=== PATIENT | female | born 1960 | race Caucasian/White ===

== ENCOUNTER 2023-06-09 19:43 | Inpatient (IN) | payer OTHER ==
[~2023-06-09] VITALS: Ht 172.7 cm; Wt 101.0 kg
[2023-06-09] MEDS ORDERED: SODIUM CHLORIDE 0.9% 1,000 ML IV ONE (20:15)
[2023-06-09 20:22] LABS: Basophils # (auto) 0.1 10 ^3/uL (0-0.2); Basophils % (auto) 0.5 % (0.0-2.0); Eosinophils # (auto) 0.2 10 ^3/uL (0-0.8); Eosinophils % (auto) 1.4 % (0.0-7.0); Hematocrit 43.6 % (36.0-46.0); Hemoglobin 14.7 g/dL (12.2-16.2); Lymphocytes # (auto) 2.9 10 ^3/uL (0.4-5.4); Lymphocytes % (auto) 24.1 % (10.0-50.0); Mean Corpuscular Hemoglobin 33.6 pg (28.0-32.0); Mean Corpuscular Hgb Conc. 33.6 g/dL (32.0-36.0); Mean Corpuscular Volume 99.8 fL (80.0-100.0); Monocytes # (auto) 0.9 10 ^3/uL (0-1.3); Monocytes % (auto) 7.9 % (0.0-12.0); Neutrophils # (auto) 7.9 10 ^3/uL (1.6-8.6); Neutrophils % (auto) 66.1 % (37.0-80.0); Red Blood Cells 4.37 10^6/uL (4.0-5.20)
[2023-06-09 20:36] LABS: Alanine Aminotransferase 46 U/L (7-40); Albumin 4.4 g/dL (3.2-4.8); Alkaline Phosphatase 145 U/L (46-116); Anion Gap 14 (5-15); Aspartate Aminotransferase 34 U/L (13-40); BUN/Creatinine Ratio 13.5 (10.0-20.0); Bilirubin, Total 1.7 mg/dL (0.2-1.0); Blood Urea Nitrogen 26 mg/dL (9-23); Calcium 9.4 mg/dL (8.7-10.4); Carbon Dioxide 19 mmol/L (20-30); Chloride 105 mmol/L (98-107); Glucose 134 mg/dL (74-106); Potassium 3.8 mmol/L (3.5-5.1); Sodium 138 mmol/L (136-145); Total Protein 7.3 g/dL (5.7-8.2)
[2023-06-09 21:21] LABS: INR 1.03 (0.9-1.15); Partial Thromboplastin Time 30.2 SEC (24.5-34.5); Prothrombin Time 10.8 sec (9.3-11.8)
[2023-06-10] VITALS (7 sets, daily range): BP systolic 75–107; BP diastolic 43–49; PULSE 75–80; RESP 11–18; TEMP 97.9; O2SAT 94–100
[2023-06-10] MEDS ORDERED: HYDROcodone-ACET 5/325MG TAB PO PRN (03:00)
[2023-06-10] MEDS ORDERED: ONDANSETRON HCL 4 MG/2 ML VIAL IV PRN (03:00)
[2023-06-10] MEDS ORDERED: SODIUM CHLORIDE 0.9% 1,000 ML IV ONE (03:00)
[2023-06-10] MEDS ORDERED: NITROGLYCERIN 0.4 MG SL TAB SL PRN (03:00)
[2023-06-10] MEDS ORDERED: DOCUSATE SOD 100 MG CAP PO PRN (03:00)
[2023-06-10] MEDS ORDERED: ACETAMINOPHEN 325 MG TAB PO PRN (03:00)
[2023-06-10 05:43] LABS: Chloride 104 mmol/L (98-107); Potassium 3.3 mmol/L (3.5-5.1); Sodium 138 mmol/L (136-145)
[2023-06-10 05:44] LABS: Anion Gap 15 (5-15); Calcium 9.3 mg/dL (8.7-10.4); Carbon Dioxide 19 mmol/L (20-30)
[2023-06-10 05:49] LABS: BUN/Creatinine Ratio 9.5 (10.0-20.0); Blood Urea Nitrogen 19 mg/dL (9-23); Glucose 107 mg/dL (74-106)
[2023-06-10 06:19] LABS: Basophils # (auto) 0 10 ^3/uL (0-0.2); Basophils % (auto) 0.6 % (0.0-2.0); Eosinophils # (auto) 0.2 10 ^3/uL (0-0.8); Eosinophils % (auto) 2.6 % (0.0-7.0); Hematocrit 43.8 % (36.0-46.0); Hemoglobin 14.7 g/dL (12.2-16.2); Lymphocytes # (auto) 3.2 10 ^3/uL (0.4-5.4); Lymphocytes % (auto) 36.6 % (10.0-50.0); Mean Corpuscular Hemoglobin 33.8 pg (28.0-32.0); Mean Corpuscular Hgb Conc. 33.6 g/dL (32.0-36.0); Mean Corpuscular Volume 100.5 fL (80.0-100.0); Monocytes # (auto) 0.7 10 ^3/uL (0-1.3); Monocytes % (auto) 7.9 % (0.0-12.0); Neutrophils # (auto) 4.5 10 ^3/uL (1.6-8.6); Neutrophils % (auto) 52.3 % (37.0-80.0); Nucleated Red Blood Cells % 0.2 %; Red Blood Cells 4.35 10^6/uL (4.0-5.20); Red Cell Distribution Width 14.4 % (11.8-14.3); White Blood Cell 8.6 10^3/uL (4.4-10.8)
[2023-06-10] MEDS ORDERED: levETIRAcetam 500 MG TAB PO SCH (13:15)
[2023-06-10] MEDS ORDERED: HYDR25TA87 PO (13:30)
[2023-06-10] MEDS ORDERED: LEVE100020 PO (13:30)
[2023-06-10] MEDS ORDERED: LISI20TA56 PO ×2 (13:30)
[2023-06-10] MEDS ORDERED: ZONI100C43 PO (13:30)
[2023-06-10] MEDS ORDERED: TOPI50TA53 PO (13:30)
[2023-06-10] MEDS ORDERED: ATOR40TA52 PO (13:30)
[2023-06-10] MEDS ORDERED: FUR20T PO (13:30)
[2023-06-10] MEDS ORDERED: ASPI1TAB20 PO (13:31)
[2023-06-10] MEDS ORDERED: ALBU108A14 IN (13:33)
[2023-06-10] MEDS: levETIRAcetam 500 MG TAB PO SCH ×2 (14:08→21:05)
[2023-06-10] MEDS: TOPIRAMATE 25 MG TAB PO SCH ×2 (14:08→21:06)
[2023-06-10] MEDS: MORPHINE SULFATE INJ 2 MG/ml SYRG IV PRN (14:53)
[2023-06-10] MEDS: PANTOPRAZOLE 40 MG/10 ML VIAL INJ IV SCH (16:58)
[2023-06-11] VITALS (9 sets, daily range): BP systolic 90–124; BP diastolic 37–71; PULSE 61–79; RESP 16–19; TEMP 97.9–98.3; O2SAT 94–98
[2023-06-11 07:00] LABS: Basophils % (auto) 0.6 % (0.0-2.0); Eosinophils # (auto) 0.2 10 ^3/uL (0-0.8); Eosinophils % (auto) 2.6 % (0.0-7.0); Lymphocytes # (auto) 2.4 10 ^3/uL (0.4-5.4); Lymphocytes % (auto) 34.3 % (10.0-50.0); Monocytes # (auto) 0.5 10 ^3/uL (0-1.3); Monocytes % (auto) 7.1 % (0.0-12.0); Neutrophils # (auto) 3.8 10 ^3/uL (1.6-8.6); Neutrophils % (auto) 55.4 % (37.0-80.0); Nucleated Red Blood Cells % 0.1 %; White Blood Cell 6.9 10^3/uL (4.4-10.8)
[2023-06-11 07:01] LABS: Basophils # (auto) 0 10 ^3/uL (0-0.2); Hematocrit 36.4 % (36.0-46.0); Hemoglobin 12.4 g/dL (12.2-16.2); Mean Corpuscular Volume 100.2 fL (80.0-100.0); Red Blood Cells 3.63 10^6/uL (4.0-5.20); Red Cell Distribution Width 14.3 % (11.8-14.3)
[2023-06-11 07:02] LABS: Chloride 109 mmol/L (98-107); Potassium 3.5 mmol/L (3.5-5.1); Sodium 141 mmol/L (136-145)
[2023-06-11 07:03] LABS: Anion Gap 9 (5-15); Carbon Dioxide 23 mmol/L (20-30)
[2023-06-11 07:08] LABS: BUN/Creatinine Ratio 17.3 (10.0-20.0); Blood Urea Nitrogen 22 mg/dL (9-23); Glucose 104 mg/dL (74-106)
[2023-06-11] MEDS: TOPIRAMATE 25 MG TAB PO SCH ×2 (10:08→21:45)
[2023-06-11] MEDS: PANTOPRAZOLE 40 MG/10 ML VIAL INJ IV SCH (10:08)
[2023-06-11] MEDS: levETIRAcetam 500 MG TAB PO SCH ×3 (10:08→21:45)
[2023-06-11] MEDS: MORPHINE SULFATE INJ 2 MG/ml SYRG IV PRN (16:52)
[2023-06-11] MEDS ORDERED: LORazepam 2MG/ML-1ML VIAL IV PRN ×2 (17:45)
[2023-06-11 20:42] LABS: Urine Bacteria NONE SEEN /hpf (None Seen); Urine Blood Negative /uL (Negative); Urine Clarity HAZY (Clear); Urine Color Yellow (Yellow); Urine Mucus FEW (None Seen); Urine Protein, UAD Negative (Negative); Urine Specific Gravity 1.019 (1.001-1.035); Urine Urobilinogen Normal (Negative); Urine WBC 2 /hpf (0 - 5)
[2023-06-12] VITALS (10 sets, daily range): BP systolic 98–111; BP diastolic 57–72; PULSE 57–79; RESP 15–18; TEMP 97.6–98.4; O2SAT 94–97
[2023-06-12 05:40] LABS: Basophils # (auto) 0.1 10 ^3/uL (0-0.2); Basophils % (auto) 0.9 % (0.0-2.0); Eosinophils # (auto) 0.2 10 ^3/uL (0-0.8); Eosinophils % (auto) 3.2 % (0.0-7.0); Hematocrit 36.9 % (36.0-46.0); Hemoglobin 12.6 g/dL (12.2-16.2); Lymphocytes # (auto) 2.3 10 ^3/uL (0.4-5.4); Lymphocytes % (auto) 34.6 % (10.0-50.0); Mean Corpuscular Hemoglobin 34.1 pg (28.0-32.0); Mean Corpuscular Hgb Conc. 34.1 g/dL (32.0-36.0); Mean Corpuscular Volume 100.1 fL (80.0-100.0); Monocytes # (auto) 0.5 10 ^3/uL (0-1.3); Monocytes % (auto) 7.2 % (0.0-12.0); Neutrophils # (auto) 3.6 10 ^3/uL (1.6-8.6); Neutrophils % (auto) 54.1 % (37.0-80.0); Nucleated Red Blood Cells % 0.1 %; Red Blood Cells 3.69 10^6/uL (4.0-5.20); Red Cell Distribution Width 14.3 % (11.8-14.3); White Blood Cell 6.7 10^3/uL (4.4-10.8)
[2023-06-12 05:47] LABS: Chloride 109 mmol/L (98-107); Potassium 3.5 mmol/L (3.5-5.1); Sodium 141 mmol/L (136-145)
[2023-06-12 05:48] LABS: Anion Gap 8 (5-15); Carbon Dioxide 24 mmol/L (20-30)
[2023-06-12 05:53] LABS: BUN/Creatinine Ratio 18.3 (10.0-20.0); Blood Urea Nitrogen 17 mg/dL (9-23); Glucose 98 mg/dL (74-106)
[2023-06-12] MEDS: PANTOPRAZOLE 40 MG/10 ML VIAL INJ IV SCH (09:35)
[2023-06-12] MEDS: TOPIRAMATE 25 MG TAB PO SCH (09:36)
[2023-06-12] MEDS: levETIRAcetam 500 MG TAB PO SCH (09:36)
== END 2023-06-12 17:45 | disposition home or self-care (01) | DRG 315 ==
LOC: ER 19:43 → TELE 06-10 02:51 → TELE-EAST 06-10 02:58 → TELE 06-10 02:58 → ER 06-10 02:58 → TELE-E-ADS 06-10 12:18 → TELE-EAST 06-10 17:49
PROVIDERS: ADMIT Nurse Practitioner Family; ATTEND Nurse Practitioner Family
DX: I95.9 Hypotension, unspecified (principal); N17.9 Acute kidney failure, unspecified; D72.829 Elevated white blood cell count, unspecified; E87.6 Hypokalemia; E11.9 Type 2 diabetes mellitus without complications; E78.5 Hyperlipidemia, unspecified; E66.01 Morbid (severe) obesity due to excess calories; G40.409 Other generalized epilepsy and epileptic syndromes, not intractable, without status epilepticus; G43.909 Migraine, unspecified, not intractable, without status migrainosus; G47.00 Insomnia, unspecified; I11.0 Hypertensive heart disease with heart failure; I50.9 Heart failure, unspecified; J45.909 Unspecified asthma, uncomplicated; Z79.899 Other long term (current) drug therapy; Z80.0 Family history of malignant neoplasm of digestive organs; Z82.3 Family history of stroke; Z82.49 Family history of ischemic heart disease and other diseases of the circulatory system; Z83.3 Family history of diabetes mellitus; Z86.73 Personal history of transient ischemic attack (TIA), and cerebral infarction without residual deficits; Z90.710 Acquired absence of both cervix and uterus; Z68.33 Body mass index [BMI] 33.0-33.9, adult
CPT/HCPCS: 36415; 70450; 70551; 71045; 80048; 80053; 81001; 83880; 84484; 85025; 85610; 85730; 93005; 93306; 94660; 95819; 97163; C9113; G0378; J2405

== ENCOUNTER 2023-11-24 14:55 | Inpatient (IN) | payer OTHER ==
[~2023-11-24] VITALS: Ht 172.7 cm; Wt 97.7 kg
[~2023-11-24 14:55] MED LIST: ALBU108A14 IN; ASPI1TAB20 PO; ATOR40TA52 PO; FUR20T PO; HYDR25TA87 PO; LEVE100020 PO; LISI20TA56 PO; TOPI50TA53 PO; ZONI100C43 PO
[2023-11-24 16:58] LABS: Basophils # (auto) 0.1 10 ^3/uL (0-0.2); Basophils % (auto) 0.5 % (0.0-2.0); Eosinophils # (auto) 0.2 10 ^3/uL (0-0.8); Hematocrit 44.5 % (36.0-46.0); Hemoglobin 15.1 g/dL (12.2-16.2); Lymphocytes # (auto) 3.3 10 ^3/uL (0.4-5.4); Lymphocytes % (auto) 29.9 % (10.0-50.0); Mean Corpuscular Hemoglobin 34.5 pg (28.0-32.0); Mean Corpuscular Volume 101.5 fL (80.0-100.0); Monocytes # (auto) 0.6 10 ^3/uL (0-1.3); Monocytes % (auto) 5.7 % (0.0-12.0); Neutrophils # (auto) 6.9 10 ^3/uL (1.6-8.6); Neutrophils % (auto) 61.9 % (37.0-80.0); Nucleated Red Blood Cells % 0.1 %; Red Blood Cells 4.39 10^6/uL (4.0-5.20); Red Cell Distribution Width 14.2 % (11.8-14.3); White Blood Cell 11.2 10^3/uL (4.4-10.8)
[2023-11-24 17:14] LABS: Alanine Aminotransferase 35 U/L (7-40); Albumin 4.4 g/dL (3.2-4.8); Alkaline Phosphatase 158 U/L (46-116); Anion Gap 8 (5-15); Aspartate Aminotransferase 32 U/L (13-40); BUN/Creatinine Ratio 12.1 (10.0-20.0); Blood Urea Nitrogen 11 mg/dL (9-23); Calcium 10.2 mg/dL (8.7-10.4); Carbon Dioxide 21 mmol/L (20-30); Chloride 110 mmol/L (98-107); Glucose 114 mg/dL (74-106); Lipase 27 U/L (12-53); Magnesium 1.9 mg/dL (1.6-2.6); Potassium 3.7 mmol/L (3.5-5.1); Sodium 139 mmol/L (136-145)
[2023-11-24 17:15] LABS: Bilirubin, Total 1.7 mg/dL (0.2-1.0); Total Protein 7.7 g/dL (5.7-8.2)
[2023-11-24] MEDS: ONDANSETRON HCL 4 MG/2 ML VIAL IV ONE ×2 (17:58→21:03)
[2023-11-24] MEDS: SODIUM CHLORIDE 0.9% 1,000 ML IV ONE (17:58)
[2023-11-24] MEDS: IOHEXOL 300 MG/ML 100ML BOTTLE IJ ONE (18:28)
[2023-11-24] MEDS: HYDROcodone-ACET 5/325MG TAB PO ONE (20:59)
[2023-11-24] MEDS: fentaNYL CITRATE 100 MCG/2 ML VL IV ONE (21:05)
[2023-11-24] MEDS ORDERED: ACETAMINOPHEN 325 MG TAB PO PRN (21:30)
[2023-11-24] MEDS ORDERED: MORPHINE SULFATE INJ 2 MG/ml SYRG IV PRN (21:30)
[2023-11-24] MEDS ORDERED: ONDANSETRON HCL 4 MG/2 ML VIAL IV PRN (21:30)
[2023-11-24] MEDS ORDERED: MELATONIN 5 MG TAB PO PRN (21:30)
[2023-11-24] MEDS: SODIUM CHLORIDE 0.9% 1,000 ML IV SCH (21:34)
[2023-11-24] MEDS: PANTOPRAZOLE 40 MG/10 ML VIAL INJ IV SCH (21:40)
[2023-11-24 22:26] VITALS: BP 109/49; PULSE 68; RESP 18; TEMP 97.8; O2SAT 98
[2023-11-24 22:28] VITALS: PULSE 88; RESP 17; O2SAT 97
[2023-11-25] VITALS (7 sets, daily range): BP systolic 108–138; BP diastolic 56–94; PULSE 62–75; RESP 18–20; TEMP 97.6–98.4; O2SAT 94–98
[2023-11-25 07:13] LABS: Anion Gap 7 (5-15); Carbon Dioxide 23 mmol/L (20-30); Chloride 110 mmol/L (98-107); Potassium 3.5 mmol/L (3.5-5.1); Sodium 140 mmol/L (136-145)
[2023-11-25 07:14] LABS: Calcium 9.1 mg/dL (8.5-10.1)
[2023-11-25 07:19] LABS: BUN/Creatinine Ratio 13.8 (10.0-20.0); Blood Urea Nitrogen 11 mg/dL (9-23); Glucose 79 mg/dL (74-106)
[2023-11-25 07:30] LABS: Basophils # (auto) 0.1 10 ^3/uL (0-0.2); Basophils % (auto) 1.2 % (0.0-2.0); Eosinophils # (auto) 0.3 10 ^3/uL (0-0.8); Eosinophils % (auto) 2.8 % (0.0-7.0); Hematocrit 39.3 % (36.0-46.0); Lymphocytes # (auto) 3.4 10 ^3/uL (0.4-5.4); Lymphocytes % (auto) 35.3 % (10.0-50.0); Mean Corpuscular Hgb Conc. 33.1 g/dL (32.0-36.0); Mean Corpuscular Volume 102.9 fL (80.0-100.0); Monocytes # (auto) 0.7 10 ^3/uL (0-1.3); Monocytes % (auto) 7.4 % (0.0-12.0); Neutrophils # (auto) 5.1 10 ^3/uL (1.6-8.6); Neutrophils % (auto) 53.3 % (37.0-80.0); Nucleated Red Blood Cells % 0.2 %; Red Blood Cells 3.82 10^6/uL (4.0-5.20); Red Cell Distribution Width 13.8 % (11.8-14.3); White Blood Cell 9.5 10^3/uL (4.4-10.8)
[2023-11-25 08:22] LABS: Platelet Estimate Adequate
[2023-11-25] MEDS: ENOXAPARIN SOD 40 MG/0.4 ML SYRINGE SC SCH (09:33)
[2023-11-25] MEDS: HYDROcodone-ACET 5/325MG TAB PO PRN (14:49)
[2023-11-25 15:43] LABS: Urine Bacteria None Seen /hpf (None Seen)
[2023-11-25 16:08] LABS: Urine Blood 3+ /uL (Negative); Urine Clarity Turbid (Clear); Urine Color Light-Orange (Yellow); Urine Mucus FEW (None Seen); Urine Protein, UAD TRACE (Negative); Urine Specific Gravity 1.029 (1.001-1.035); Urine Urobilinogen Normal (Negative); Urine WBC 3 /hpf (0 - 5)
[2023-11-26] VITALS (8 sets, daily range): BP systolic 127–167; BP diastolic 51–73; PULSE 59–72; RESP 18–19; TEMP 97.4–98.1; O2SAT 94–96
[2023-11-26] MEDS ORDERED: CLOP75TA28 PO (10:54)
[2023-11-26] MEDS ORDERED: CARV-214 OR (10:55)
[2023-11-26] MEDS: FUROSEMIDE 20 MG TAB PO SCH (18:37)
[2023-11-26] MEDS: TOPIRAMATE 25 MG TAB PO SCH (23:03)
[2023-11-26] MEDS: levETIRAcetam 500 MG TAB PO SCH (23:04)
[2023-11-26] MEDS: CARVEDILOL 3.125 MG TAB PO SCH (23:05)
[2023-11-26] MEDS: hydrALAZINE HCL 25 MG TAB PO PRN (23:11)
[2023-11-27] VITALS (8 sets, daily range): BP systolic 134–172; BP diastolic 62–85; PULSE 50–82; RESP 17–20; TEMP 97.6–98.6; O2SAT 93–96
[2023-11-27] MEDS: CLOPIDOGREL BISULFATE 75 MG TAB PO SCH (09:13)
[2023-11-27] MEDS: LISINOPRIL 20 MG TAB PO SCH (09:14)
[2023-11-27] MEDS: ATORVASTATIN 20 MG TAB PO SCH (22:31)
[2023-11-27] MEDS: CIPROFLOXACIN HCL 500 MG TAB PO SCH (22:32)
[2023-11-28 01:00] VITALS: BP 139/81; PULSE 57; RESP 16; TEMP 98; O2SAT 93
[2023-11-28 05:00] VITALS: BP 119/65; PULSE 56; RESP 17; TEMP 98; O2SAT 95
[2023-11-28 08:00] VITALS: RESP 18; O2SAT 95
[2023-11-28 08:15] VITALS: BP 139/68; PULSE 63; RESP 19; TEMP 97.5; O2SAT 96
[2023-11-28 12:10] VITALS: BP 122/65; PULSE 61; RESP 18; TEMP 98.2; O2SAT 96
[2023-11-28] MEDS ORDERED: LEVO500T91 PO (13:38)
[2023-11-28] MEDS ORDERED: AZIT500T66 PO ×2 (14:00→14:02)
[2023-11-28 16:07] VITALS: BP 124/65; PULSE 61; RESP 18; TEMP 36.8; O2SAT 96
== END 2023-11-28 16:30 | disposition home or self-care (01) | DRG 372 ==
LOC: ER 14:55 → OVERFLOW 21:19 → EAST 22:32 → OBSVTOIN 11-26 08:36
PROVIDERS: ADMIT Nurse Practitioner Family; ATTEND Internal Medicine
DX: A04.5 Campylobacter enteritis (principal); I13.0 Hypertensive heart and chronic kidney disease with heart failure and stage 1 through stage 4 chronic kidney disease, or unspecified chronic kidney disease; G40.909 Epilepsy, unspecified, not intractable, without status epilepticus; I50.9 Heart failure, unspecified; N18.9 Chronic kidney disease, unspecified; D72.829 Elevated white blood cell count, unspecified; E78.5 Hyperlipidemia, unspecified; Z90.710 Acquired absence of both cervix and uterus; Z86.73 Personal history of transient ischemic attack (TIA), and cerebral infarction without residual deficits; Z82.49 Family history of ischemic heart disease and other diseases of the circulatory system; Z80.0 Family history of malignant neoplasm of digestive organs; Z85.038 Personal history of other malignant neoplasm of large intestine; Z79.899 Other long term (current) drug therapy
CPT/HCPCS: 36415; 74176; 74177; 76830; 76856; 80048; 80053; 81001; 83605; 83690; 83735; 84484; 85025; 85048; 87045; 87177; 87427; 87493; 96374; 96375; G0378; J2405; J2470

== ENCOUNTER 2024-01-16 09:23 | Inpatient (IN) | payer OTHER ==
[~2024-01-16] VITALS: Ht 172.7 cm; Wt 103.9 kg
[~2024-01-16 09:23] MED LIST changes: +AZIT500T66 PO; +CARV-214 PO; +CLOP75TA28 PO; -FUR20T PO; +FURO20TA4 PO; +LOSA-534 PO; +POTA-228 PO
[2024-01-16 10:03] LABS: Red Cell Distribution Width 14.4 % (11.8-14.3)
[2024-01-16 10:05] LABS: Basophils # (auto) 0.1 10 ^3/uL (0-0.2); Basophils % (auto) 0.7 % (0.0-2.0); Eosinophils # (auto) 0.2 10 ^3/uL (0-0.8); Hematocrit 28.2 % (36.0-46.0); Hemoglobin 9.7 g/dL (12.2-16.2); Lymphocytes # (auto) 2.6 10 ^3/uL (0.4-5.4); Lymphocytes % (auto) 30.4 % (10.0-50.0); Mean Corpuscular Hemoglobin 34.9 pg (28.0-32.0); Mean Corpuscular Hgb Conc. 34.2 g/dL (32.0-36.0); Mean Corpuscular Volume 101.9 fL (80.0-100.0); Monocytes # (auto) 0.5 10 ^3/uL (0-1.3); Monocytes % (auto) 5.4 % (0.0-12.0); Neutrophils # (auto) 5.2 10 ^3/uL (1.6-8.6); Neutrophils % (auto) 61.5 % (37.0-80.0); Platelet Count (auto) 220 10^3/uL (140-450); Red Blood Cells 2.77 10^6/uL (4.0-5.20); White Blood Cell 8.5 10^3/uL (4.4-10.8)
[2024-01-16 10:18] LABS: INR 1.03 (0.9-1.15); Prothrombin Time 10.9 sec (9.3-11.8)
[2024-01-16 10:20] VITALS: PULSE 88; RESP 15; O2SAT 96
[2024-01-16 10:26] LABS: Alanine Aminotransferase 40 U/L (7-40); Albumin 3.6 g/dL (3.2-4.8); Alkaline Phosphatase 156 U/L (46-116); Anion Gap 11 (5-15); Aspartate Aminotransferase 31 U/L (13-40); BUN/Creatinine Ratio 13.6 (10.0-20.0); Bilirubin, Total 1.1 mg/dL (0.2-1.0); Blood Urea Nitrogen 12 mg/dL (9-23); Carbon Dioxide 20 mmol/L (20-30); Chloride 108 mmol/L (98-107); Glucose 175 mg/dL (74-106); Potassium 3.6 mmol/L (3.5-5.1); Sodium 139 mmol/L (136-145); Total Protein 6.2 g/dL (5.7-8.2)
[2024-01-16] MEDS: SODIUM CHLORIDE 0.9% 1,000 ML IV ONE ×2 (11:21→12:46)
[2024-01-16] MEDS: HYDROcodone-ACET 10/325MG TAB PO ONE (13:07)
[2024-01-16] MEDS ORDERED: MORPHINE SULFATE INJ 2 MG/ml SYRG IV PRN (13:15)
[2024-01-16] MEDS ORDERED: NITROGLYCERIN 0.4 MG SL TAB SL PRN (13:15)
[2024-01-16] MEDS: SODIUM CHLORIDE 0.9% 1,000 ML IV SCH (13:30)
[2024-01-16] MEDS: PANTOPRAZOLE 40 MG/10 ML VIAL INJ IV ONE (13:39)
[2024-01-16 15:03] LABS: Hematocrit 26.3 % (36.0-46.0)
[2024-01-16] MEDS: ONDANSETRON HCL 4 MG/2 ML VIAL IV PRN (17:48)
[2024-01-16] MEDS: MORPHINE SULFATE INJ 2 MG/ml SYRG IV PRN (17:50)
[2024-01-16 18:00] LABS: Hemoglobin 9.2 g/dL (12.2-16.2)
[2024-01-16 18:02] LABS: Hematocrit 26.9 % (36.0-46.0)
[2024-01-16] MEDS: PANTOPRAZOLE 40 MG/10 ML VIAL INJ IV SCH (22:06)
[2024-01-16] MEDS: TOPIRAMATE 100 MG TAB PO SCH (22:06)
[2024-01-16] MEDS: levETIRAcetam 1000 mg/100ml 100 ML IV SCH (22:07)
[2024-01-16 23:00] VITALS: BP 152/73; PULSE 82; RESP 20; TEMP 98.5; O2SAT 98
[2024-01-16 23:01] VITALS: BP 152/73; PULSE 82; TEMP 98.5; O2SAT 98
[2024-01-16 23:41] LABS: Hematocrit 24.4 % (36.0-46.0); Hemoglobin 8.3 g/dL (12.2-16.2)
[2024-01-17] VITALS (11 sets, daily range): BP systolic 103–143; BP diastolic 53–68; PULSE 71–82; RESP 16–20; TEMP 97.6–98.6; O2SAT 95–98
[2024-01-17 10:14] LABS: Hematocrit 22.6 % (36.0-46.0); Hemoglobin 7.4 g/dL (12.2-16.2)
[2024-01-17] MEDS: FUROSEMIDE 20 MG/2 ML VIAL IV ONE (16:18)
[2024-01-17 19:04] LABS: Hematocrit 26.2 % (36.0-46.0)
[2024-01-18] VITALS (11 sets, daily range): BP systolic 109–138; BP diastolic 45–62; PULSE 64–78; RESP 16–18; TEMP 97.8–98.7; O2SAT 94–99
[2024-01-18 06:47] LABS: Basophils # (auto) 0 10 ^3/uL (0-0.2); Basophils % (auto) 0.5 % (0.0-2.0); Eosinophils # (auto) 0.1 10 ^3/uL (0-0.8); Lymphocytes # (auto) 2.5 10 ^3/uL (0.4-5.4); Monocytes # (auto) 0.4 10 ^3/uL (0-1.3); Red Cell Distribution Width 17.5 % (11.8-14.3)
[2024-01-18 06:54] LABS: Eosinophils % (auto) 1.8 % (0.0-7.0); Hematocrit 23.4 % (36.0-46.0); Hemoglobin 8.1 g/dL (12.2-16.2); Lymphocytes % (auto) 41.4 % (10.0-50.0); Mean Corpuscular Hemoglobin 34.1 pg (28.0-32.0); Mean Corpuscular Hgb Conc. 34.4 g/dL (32.0-36.0); Mean Corpuscular Volume 99.1 fL (80.0-100.0); Neutrophils % (auto) 50.3 % (37.0-80.0); Nucleated Red Blood Cells % 0.3 %; Platelet Count (auto) 142 10^3/uL (140-450); Red Blood Cells 2.37 10^6/uL (4.0-5.20)
[2024-01-18 07:00] LABS: Alanine Aminotransferase 31 U/L (7-40); Albumin 3.4 g/dL (3.2-4.8); Alkaline Phosphatase 117 U/L (46-116); Anion Gap 6 (5-15); Aspartate Aminotransferase 26 U/L (13-40); BUN/Creatinine Ratio 7.4 (10.0-20.0); Blood Urea Nitrogen 7 mg/dL (9-23); Calcium 8.5 mg/dL (8.7-10.4); Carbon Dioxide 25 mmol/L (20-30); Chloride 111 mmol/L (98-107); Glucose 94 mg/dL (74-106); INR 1.04 (0.9-1.15); Partial Thromboplastin Time 23.7 SEC (24.5-34.5); Potassium 3.2 mmol/L (3.5-5.1); Sodium 142 mmol/L (136-145); Total Protein 5.5 g/dL (5.7-8.2)
[2024-01-18] MEDS: POTASSIUM CHL 20 Meq TABLET PO ONE (14:17)
[2024-01-18] MEDS: GOLYTELY 4L KIT PO ONE (19:15)
[2024-01-19] VITALS (8 sets, daily range): BP systolic 107–143; BP diastolic 47–78; PULSE 66–101; RESP 17–24; TEMP 97.5–98.6; O2SAT 93–99
[2024-01-19 00:57] LABS: Hematocrit 24.3 % (36.0-46.0); Hemoglobin 8.4 g/dL (12.2-16.2)
[2024-01-19] MEDS: GOLYTELY 4L KIT PO ONE (05:45)
[2024-01-19] MEDS: MAGNESIUM CITRATE SOLUTION 300 ML BTL PO ONE ×2 (05:46→09:11)
[2024-01-19] MEDS ORDERED: LIDOCAINE VISCOUS 2% 15ML UD ONE (08:30)
[2024-01-19] MEDS ORDERED: SODIUM CHLORIDE LOCK 0 ML ONE (08:30)
[2024-01-19] MEDS ORDERED: MIDAZOLAM HCL 5 MG/ML-1ML VIAL ONE (08:30)
[2024-01-19] MEDS ORDERED: fentaNYL CITRATE 100 MCG/2 ML VL ONE ×2 (08:31→12:57)
[2024-01-19] MEDS ORDERED: diphenhdrAMINE HCL 50 MG/1 ML VL ONE (08:31)
[2024-01-19] MEDS ORDERED: MIDAZOLAM HCL 2MG/2ML 2ml VIAL (1mg/ml) ONE (12:57)
[2024-01-19] MEDS ORDERED: PROPOFOL 10 MG/ML 20 ML IV ONE (12:58)
[2024-01-19] MEDS ORDERED: LIDOCAINE 1% INJ PF 5ML AMP ONE (12:59)
[2024-01-19] MEDS: ONDANSETRON HCL 4 MG/2 ML VIAL IV ONE (13:00)
[2024-01-19 16:14] LABS: Chloride 114 mmol/L (98-107); Potassium 3.6 mmol/L (3.5-5.1); Sodium 143 mmol/L (136-145)
[2024-01-19 16:15] LABS: Anion Gap 5 (5-15); Calcium 8.7 mg/dL (8.7-10.4); Carbon Dioxide 24 mmol/L (20-30)
[2024-01-19 16:20] LABS: BUN/Creatinine Ratio 5.8 (10.0-20.0); Blood Urea Nitrogen < 5 mg/dL (9-23); Glucose 82 mg/dL (74-106)
[2024-01-19] MEDS: levETIRAcetam 500 MG TAB PO SCH (23:56)
[2024-01-20] VITALS (7 sets, daily range): BP systolic 106–117; BP diastolic 57–62; PULSE 63–80; RESP 18–20; TEMP 98–98.7; O2SAT 94–100
[2024-01-20 04:46] LABS: White Blood Cell 5.5 10^3/uL (4.4-10.8)
[2024-01-20 04:48] LABS: Basophils # (auto) 0 10 ^3/uL (0-0.2); Basophils % (auto) 0.4 % (0.0-2.0); Eosinophils # (auto) 0.1 10 ^3/uL (0-0.8); Eosinophils % (auto) 2.3 % (0.0-7.0); Hematocrit 23.1 % (36.0-46.0); Hemoglobin 7.9 g/dL (12.2-16.2); Lymphocytes % (auto) 36.3 % (10.0-50.0); Mean Corpuscular Hemoglobin 34.2 pg (28.0-32.0); Mean Corpuscular Hgb Conc. 34.1 g/dL (32.0-36.0); Mean Corpuscular Volume 100.3 fL (80.0-100.0); Monocytes # (auto) 0.4 10 ^3/uL (0-1.3); Monocytes % (auto) 7.6 % (0.0-12.0); Neutrophils % (auto) 53.4 % (37.0-80.0); Platelet Count (auto) 186 10^3/uL (140-450); Red Cell Distribution Width 17.2 % (11.8-14.3)
[2024-01-20 04:55] LABS: Anion Gap 8 (5-15); Carbon Dioxide 22 mmol/L (20-30); Chloride 114 mmol/L (98-107); Potassium 3.2 mmol/L (3.5-5.1); Sodium 144 mmol/L (136-145)
[2024-01-20 04:56] LABS: Calcium 8.2 mg/dL (8.7-10.4)
[2024-01-20 05:00] LABS: INR 1.04 (0.9-1.15); Partial Thromboplastin Time 24.3 SEC (24.5-34.5)
[2024-01-20 05:01] LABS: BUN/Creatinine Ratio 5.6 (10.0-20.0); Blood Urea Nitrogen 5 mg/dL (9-23); Glucose 90 mg/dL (74-106)
[2024-01-20] MEDS: POTASSIUM CHL 20 Meq TABLET PO ONE (09:41)
[2024-01-20] MEDS ORDERED: ASCO500C16 PO (09:59)
[2024-01-20] MEDS ORDERED: FER300LQ PO (09:59)
== END 2024-01-20 14:16 | disposition home or self-care (01) | DRG 378 ==
LOC: ER 09:23 → TELE 13:19 → TELE-CENTR 23:00
PROVIDERS: ADMIT Hospitalist; ATTEND Hospitalist
PROC: 30233N1 Transfusion of Nonautologous Red Blood Cells into Peripheral Vein, Percutaneous Approach (ICD-10-PCS; 2024-01-17)
PROC: 05H933Z Insertion of Infusion Device into Right Brachial Vein, Percutaneous Approach (ICD-10-PCS; 2024-01-17)
PROC: B54MZZA Ultrasonography of Right Upper Extremity Veins, Guidance (ICD-10-PCS; 2024-01-17)
PROC: 30233K1 Transfusion of Nonautologous Frozen Plasma into Peripheral Vein, Percutaneous Approach (ICD-10-PCS; 2024-01-18)
PROC: 0DB68ZX Excision of Stomach, Via Natural or Artificial Opening Endoscopic, Diagnostic (ICD-10-PCS; 2024-01-19)
PROC: 0DBP8ZZ Excision of Rectum, Via Natural or Artificial Opening Endoscopic (ICD-10-PCS; principal; 2024-01-19 12:51)
PROC: 0DB98ZX Excision of Duodenum, Via Natural or Artificial Opening Endoscopic, Diagnostic (ICD-10-PCS; 2024-01-19 12:51)
DX: K57.31 Diverticulosis of large intestine without perforation or abscess with bleeding (principal); D62 Acute posthemorrhagic anemia; K70.30 Alcoholic cirrhosis of liver without ascites; I10 Essential (primary) hypertension; G40.909 Epilepsy, unspecified, not intractable, without status epilepticus; R73.9 Hyperglycemia, unspecified; K64.8 Other hemorrhoids; K62.1 Rectal polyp; Z82.49 Family history of ischemic heart disease and other diseases of the circulatory system; Z86.73 Personal history of transient ischemic attack (TIA), and cerebral infarction without residual deficits; Z90.710 Acquired absence of both cervix and uterus; Z79.02 Long term (current) use of antithrombotics/antiplatelets; Z80.0 Family history of malignant neoplasm of digestive organs; Z79.899 Other long term (current) drug therapy
CPT/HCPCS: 36415; 70450; 71045; 74176; 80048; 80053; 83735; 84484; 85014; 85018; 85025; 85610; 85730; 86850; 86900; 86901; 86920; 93005; 93306; 96374; 99291; G0378; J2250; J2405; J2470; J2704

== ENCOUNTER 2024-05-21 17:23 | Emergency (ER) | payer OTHER ==
[~2024-05-21] VITALS: Ht 172.7 cm; Wt 105.8 kg
[~2024-05-21 17:23] MED LIST changes: +ASCO500C16 PO; -AZIT500T66 PO; +FER300LQ PO; -LISI20TA56 PO
[2024-05-21 17:57] LABS: Basophils # (auto) 0.1 10 ^3/uL (0-0.2); Basophils % (auto) 0.7 % (0.0-2.0); Eosinophils # (auto) 0.3 10 ^3/uL (0-0.8); Eosinophils % (auto) 3.1 % (0.0-7.0); Hematocrit 42.2 % (36.0-46.0); Hemoglobin 14.1 g/dL (12.2-16.2); Lymphocytes # (auto) 2.5 10 ^3/uL (0.4-5.4); Lymphocytes % (auto) 29.8 % (10.0-50.0); Mean Corpuscular Hemoglobin 33.3 pg (28.0-32.0); Mean Corpuscular Hgb Conc. 33.4 g/dL (32.0-36.0); Mean Corpuscular Volume 99.6 fL (80.0-100.0); Monocytes # (auto) 0.7 10 ^3/uL (0-1.3); Neutrophils # (auto) 4.8 10 ^3/uL (1.6-8.6); Neutrophils % (auto) 58.4 % (37.0-80.0); Platelet Count (auto) 185 10^3/uL (140-450); Red Blood Cells 4.23 10^6/uL (4.0-5.20); Red Cell Distribution Width 14.6 % (11.8-14.3); White Blood Cell 8.2 10^3/uL (4.4-10.8)
[2024-05-21 18:05] LABS: Chloride 107 mmol/L (98-107); Potassium 4.2 mmol/L (3.5-5.1); Sodium 141 mmol/L (136-145)
[2024-05-21 18:06] LABS: Anion Gap 7 (5-15); Calcium 10.1 mg/dL (8.7-10.4); Carbon Dioxide 27 mmol/L (20-31)
[2024-05-21 18:11] LABS: BUN/Creatinine Ratio 23.1 (10.0-20.0); Blood Urea Nitrogen 21 mg/dL (9-23); Glucose 102 mg/dL (74-106); Lipase 30 U/L (12-53)
--- NOTE | 2024-05-21 18:12 | DVH ---
CLINICAL INFORMATION: 64 years old, Female; chest pain. TECHNIQUE: Frontal and lateral chest radiographs were obtained. COMPARISON: Prior radiograph dated 01/16/2024. FINDINGS: Lungs: Mild atelectasis in the lung bases. No focal consolidation. Cardiac: Heart size is within normal limits. Pulmonary vasculature: Unremarkable Mediastinum/kavita: Within normal limits. Bones: No evidence of acute osseous abnormality. Multilevel moderate disc space narrowing in the thor acic spine with associated endplate sclerosis and endplate spurring. Other: No other significant finding. IMPRESSION: No evidence of acute disease in the chest.
--- NOTE | 2024-05-21 19:14 | ED.PDOC ---
HPI Comments 64Y F with PMHx CHF, HTN, and HLD presents to ED for chief complaint chest pain. Pt describes chest pain as substernal and radiates to her back. Chest pain began earlier this afternoon. Additional symptoms include nausea and dizziness. Pt denies SOB, vomiting, and diarrhea. Pt states BP was 181/91 at home and then systolic BP decreased to 157 after taking her medications. BP was 155/67 upon ED arrival. Pt takes Lasix. 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 Chief Complaint: Chest Pain Time Seen by MD: 18:38 Primary Care Provider: KAYLEY Reviewed Notes: Nurses Notes, Medications, Allergies Allergies: Coded Allergies: Valproic Acid (Verified Allergy, Unknown, 06/09/23) Home Meds Active Scripts Ascorbic Acid (Vitamin C 500 mg) 1 Chw Chw, 1 CHW PO DAILY@BREAKFAST, #30 TAB.CHEW To take vitamin-C along with your daily iron for better absorption. Prov:TAYLOR TONEY MD 01/20/24 Ferrous Sulfate (Ferrous Sulfate) 300 Mg/5 Ml Sr, 300 MG PO DAILY@BREAKFAST, #240 SYP Prov:TAYLOR TONEY MD 01/20/24 Reported Medications Potassium Chloride (Potassium Chloride ER) 10 Meq Tab, 1 TAB PO DAILY for 90 Days, #90 01/17/24 Losartan Potassium (Losartan Potassium) 50 Mg Tab, 1 TAB PO DAILY for 90 Days, #90 01/17/24 Carvedilol (COREG) 3.125 Mg Tab, 1 TAB PO BID for 30 Days, #60 11/26/23 Clopidogrel Bisulfate (Plavix) 75 Mg Tab, 1 TAB PO DAILY, TAB 1 Refill 11/26/23 Albuterol Sulfate (Proair Digihaler) 108 Mcg/Act Aer, 90 MCG IN Q6HPRN, AER 06/10/23 Aspirin (Aspir-81) 81 Mg Tab, 1 TAB PO DAILY, #30 TAB 5 Refills 06/10/23 Zonisamide (Zonisamide) 100 Mg Cap, CAP PO UD for 30 Days, #150 Take 2 capsules by mouth in the morning, and 3 capsules by mouth in the evening. 06/10/23 Levetiracetam (Levetiracetam) 1,000 Mg Tab, 1 TAB PO BID 06/10/23 Topiramate (Topiramate) 50 Mg Tab, 1 TAB PO BID 06/10/23 Furosemide (Furosemide) 20 Mg Tab, 1 TAB PO BID 06/10/23 Atorvastatin Calcium (ATORVASTATIN CALCIUM) 40 Mg Tab, 1 TAB PO DAILY 06/10/23 Hydralazine HCl (Hydralazine HCl) 25 Mg Tab, 1 TAB PO BIDPRN PRN for blood pressure 06/10/23 Information Source: Patient Mode of Arrival: Ambulatory Severity: Mild Timing: Hours Duration: Since onset Location: Substernal Radiation: Back Quality: Other Onset: At Rest Cardiac Risk Factors: Hyperlipidemia, HTN PE Risk Factors: None History of: None Modifying Factors: Nothing Associated Signs and Symptoms: Back Pain, Other Past Medical History PAST MEDICAL HISTORY: CHF, CKF, CVA, High Lipids, HTN, Seizures Surgical History: Hysterectomy 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: No 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 Family History Family History: Reviewed,noncontributory to illness, No family hx of Cancer, No family hx of DM, No family hx of Heart jalil, No family hx of HTN, No family hx ofKidney jalil, No family hx of Liver jalil, No family hx of Lung jalil, No family hx of Stroke Social History Smoker: Non-Smoker Alcohol: Denies ETOH Use Drugs: Denies Drug Use Lives In: Home Constitutional: denies: chills, diaphoresis, fatigue, fever, malaise, sweats, weakness, others EENTM: denies: blurred vision, double vision, ear bleeding, ear discharge, ear drainage, ear pain, ear ringing, eye pain, eye redness, hearing loss, mouth pain, mouth swelling, nasal discharge, nose bleeding, nose congestion, nose pain, photophobia, tearing, throat pain, throat swelling, voice changes, others Respiratory: denies: cough, hemoptysis, orthopnea, SOB at rest, shortness of breath, SOB with excertion, stridor, wheezing, others Cardiovascular: reports: chest pain; denies: dizzy spells, diaphoresis, Dyspnea on exertion, edema, irregular heart beat, left arm pain, lightheadedness, palpitations, PND, syncope, others Gastrointestinal: reports: nausea; denies: abdomen distended, abdominal pain, blood streaked bowels, constipated, diarrhea, dysphagia, difficulty swallowing, hematemesis, melena, poor appetite, poor fluid intake, rectal bleeding, rectal pain, vomiting, others Genitourinary: denies: abnormal vagina bleeding, burning, dyspareunia, dysuria, flank pain, frequency, hematuria, incontinence, pain, , vagina discharge, urgency, others Neurological: reports: dizziness; denies: fainting, headache, left sided numbness, left sided weakness, numbness, paresthesia, pre-existing deficit, right sided numbness, right sided weakness, seizure, speech problems, tingling, tremors, weakness, others Musculoskeletal: reports: back pain; denies: gout, joint pain, joint swelling, muscle pain, muscle stiffness, neck pain, others Integumetry: denies: bruises, change in color, change in hair/nails, dryness, laceration, lesions, lumps, rash, wounds, others Allergic/Immunocompromised: denies: Difficulty Healing, Frequent Infections, Hives, Itching, others Hematologic/Lymphatic: denies: anemia, blood clots, easy bleeding, easy bruising, swollen glands, others Endocrine: denies: excessive hunger, excessive sweating, excessive thirst, excessive urination, flushing, intolerance to cold, intolerance to heat, unexplained weight gain, unexplained weight loss, others Psychiatric: denies: anxiety, bipolar disorder, depression, hopeless, panic disorder, schizophrenia, sleepless, suicidal, others All Other Systems: Reviewed and Negative Physical Exam General Appearance: No Apparent Distress, Normal HEENT: Normal ENT Inspection, Pharynx Normal, TMs Normal Neck: Full Range of Motion, Non-Tender, Normal, Normal Inspection Respiratory: Chest Non-Tender, Lungs Clear, No Accessory Muscle Use, No Respiratory Distress, Normal Breath Sounds Cardiovascular: No Edema, No JVD, No Murmur, No Gallop, Normal Peripheral Pulses, Regular Rate/Rhythm Breast Exam: Deferred Gastrointestinal: No Organomegaly, Non Tender, No Pulsatile Mass, Normal Bowel Sounds, Soft Genitalia: Deferred Pelvic: Deferred Rectal: Deferred Extremities: No calf tenderness, Normal capillary refill, Normal inspection, Normal range of motion, Non-tender, No pedal edema Musculoskeletal : Apperance: Normal Neurologic: Alert, paint and table edger II-XII nml as Tested, No Motor Deficits, Normal Affect, Normal Mood, No Sensory Deficits Cerebellar Function: NOT DONE Reflexes: NOT DONE Skin: Dry, Normal Color, Warm Lymphatic: No Adenopathy Was a procedure done? Was a procedure done?: No CP Differential Dx Differential Diagnosis: Anxiety / Panic Attack, Atrial Dysrhythmia, Electrolyte Disorder, Heart Failure X-Ray, Labs, Meds, VS Vital Signs Date Time Temp Pulse Resp B/P (MAP) Pulse Ox O2 Delivery O2 Flow Rate FiO2 05/21/24 20:10 98.2 72 18 156/73 (100) 97 98.2 05/21/24 18:45 72 05/21/24 17:28 81 05/21/24 17:24 97.8 77 16 155/67 (96) 96 Lab Test 05/21/24 18:43 05/21/24 17:36 Range/Units Troponin I High Sensitivity 7 7 </=34 ng/L White Blood Count 8.2 4.4-10.8 10^3/uL Red Blood Count 4.23 4.0-5.20 10^6/uL Hemoglobin 14.1 12.2-16.2 g/dL Hematocrit 42.2 36.0-46.0 % Mean Corpuscular Volume 99.6 80.0-100.0 fL Mean Corpuscular Hemoglobin 33.3 H 28.0-32.0 pg Mean Corpuscular Hemoglobin Concent 33.4 32.0-36.0 g/dL Red Cell Distribution Width 14.6 H 11.8-14.3 % Platelet Count 185 140-450 10^3/uL Mean Platelet Volume 9.0 6.9-10.8 fL Neutrophils (%) (Auto) 58.4 37.0-80.0 % Lymphocytes (%) (Auto) 29.8 10.0-50.0 % Monocytes (%) (Auto) 8.0 0.0-12.0 % Eosinophils (%) (Auto) 3.1 0.0-7.0 % Basophils (%) (Auto) 0.7 0.0-2.0 % Neutrophils # (Auto) 4.8 1.6-8.6 10 ^3/uL Lymphocytes # (Auto) 2.5 0.4-5.4 10 ^3/uL Monocytes # (Auto) 0.7 0-1.3 10 ^3/uL Eosinophils # (Auto) 0.3 0-0.8 10 ^3/uL Basophils # (Auto) 0.1 0-0.2 10 ^3/uL Nucleated Red Blood Cells 0.0 % Sodium Level 141 136-145 mmol/L Potassium Level 4.2 3.5-5.1 mmol/L Chloride Level 107 98-107 mmol/L Carbon Dioxide Level 27 20-31 mmol/L Anion Gap 7 5-15 Blood Urea Nitrogen 21 9-23 mg/dL Creatinine 0.91 0.550-1.02 mg/dL Glomerular Filtration Rate Calc 70 >90 mL/min BUN/Creatinine Ratio 23.1 H 10.0-20.0 Serum Glucose 102 74-106 mg/dL Calcium Level 10.1 8.7-10.4 mg/dL Lipase 30 12-53 U/L [place] [address] Ph: [phone] DIAGNOSTIC IMAGING Diagnostic Imaging Report : [id number] Signed PATIENT: THANH DIAZ ACCT: [id number] UNIT: [id number] : 1960 LOC: ER ROOM / BED: / AGE / SEX: 64 / F ADM STATUS: REG ER SERVICE 39 ORDERING PHYSICIAN: PINEDA DUENAS MD PROCEDURE(s): CXR2 - CHEST TWO VIEWS ROUTINE REASON: chest pain ORDER NUMBER(s): [id number], ACCESSION NUMBER(s): [id number] CLINICAL INFORMATION: 64 years old, Female; chest pain. TECHNIQUE: Frontal and lateral chest radiographs were obtained. COMPARISON: Prior radiograph dated 01/16/2024. FINDINGS: Lungs: Mild atelectasis in the lung bases. No focal consolidation. Cardiac: Heart size is within normal limits. Pulmonary vasculature: Unremarkable Mediastinum/kavita: Within normal limits. Bones: No evidence of acute osseous abnormality. Multilevel moderate disc space narrowing in the thoracic spine with associated endplate sclerosis and endplate spurring. Other: No other significant finding. IMPRESSION: No evidence of acute disease in the chest. ATED BY: SEA AUSTIN DO DICTATED DATE/TIME: 05/21/241809 SIGNED BY: SEA AUSTIN DO SIGNED DATE/TIME: 05/21/241809 CC: Time of 1ST Reevaluation: 19:08 Reevaluation 1ST: Unchanged Patient Education/Counseling: Diagnosis, Treatment Family Education/Counseling: No Family Present Departure 1 Departure Time of Disposition: 20:59 (Patient presented with chest pain that was concerning for possible STEMI, ACS, PE, Pneumonia, Muscle Strain, COPD, Dissection. Data: 1. I ordered and reviewed the result of at least 3 labs including a CBC, BMP, and Troponin. 2. I independently interpreted the following tests: EKG which shows sinus arrhythmia and Chest X-ray which shows _ benign chest _.Risk:This patient has a high risk of morbidity due to further diagnostic testing or treatment and may suffer from an acute cardiac or respiratory disorder. Workup reveals concern for ACS and patient should be admitted for further workup and possible expert consultation. ) Impression: Primary Impression: Acute chest pain Disposition: ADMITTED INPATIENT Admit to: Med Surg Condition: Guarded Critical Care Note Critical Care Time?: Yes Critical care comment: Acute chest pain Authorized and Performed by: Pineda Duenas MD Total critical care time: Approximately 32 minutes Due to a high probability of clinically significant, life threatening deterioration, the patient required my highest level of preparedness to intervene emergently and I personally spent this critical care time directly and personally managing the patient. This critical care time included obtaining a history; examining the patient; pulse oximetry; ordering and review of studies; arranging urgent treatment with development of a management plan; evaluation of patient's response to treatment; frequent reassessment; and, discussions with other providers. This critical care time was performed to assess and manage the high probability of imminent, life-threatening deterioration that could result in multi-organ failure. It was exclusive of separately billable procedures and treating other patients and teaching time. Please see my other sections and the rest of the note for further information on patient assessment and treatment. Stability Stability form required: No Heart Score Heart Score: Heart Score Response (Comments) Value History Moderate Suspicious 1 EKG Repolarization Disturb 1 Age >65 2 Risk Factors >3 or Hx ASHD 2 Troponin Normal limit 0 Total 6 I personally scribed for PINEDA DUENAS MD ([email or web address]) on 05/21/24 at 19:14. Electronically submitted by Sharifa Sal ([facility]). PINEDA DUENAS MD May 21, 2024 19:14
[2024-05-21 20:10] VITALS: BP 156/73; RESP 18; TEMP 98.2; O2SAT 97
[2024-05-21 20:33] VITALS: PULSE 69
--- NOTE | 2024-05-22 07:04 | ECG ---
[facility] Test Date: 2024-05-21 Test Time: 20:33:37 Pat Name: THANH DIAZ Department: ER Room: Gender: F Resource Management Specialist: : 1960 Requested By: EMERGENCY EMERGENCY Order Number: [id number] Reading MD: Jc Boateng Measurements Intervals [place] Rate: 69 P: 49 [place]: 144 QRS: 11 QRSD: 88 T: 30 QT: 403 QTc: 432 Interpretive Statements Sinus rhythm Low voltage, precordial leads Poor R wave progrssion Electronically Signed On 05-22-2024 8:56:50 PST by Jc Boateng Please click the below link to view image of tracing.
--- NOTE | 2024-05-22 13:19 | ECG ---
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
--- NOTE | 2024-05-22 13:20 | ECG ---
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
== END 2024-05-21 22:56 | disposition left against medical advice (07) ==
LOC: ER 17:23
DX: R07.89 Other chest pain (principal); I11.0 Hypertensive heart disease with heart failure; I50.9 Heart failure, unspecified; E78.5 Hyperlipidemia, unspecified; Z79.02 Long term (current) use of antithrombotics/antiplatelets; Z79.82 Long term (current) use of aspirin; Z79.899 Other long term (current) drug therapy; Z86.73 Personal history of transient ischemic attack (TIA), and cerebral infarction without residual deficits; Z90.710 Acquired absence of both cervix and uterus
CPT/HCPCS: 36415; 71046; 80048; 83690; 84484; 85025; 93005

== ENCOUNTER 2024-12-06 12:59 | Inpatient (IN) | payer OTHER ==
[~2024-12-06] VITALS: Ht 172.7 cm; Wt 107.8 kg
[2024-12-06] MEDS: MORPHINE SULFATE 4 MG/ML SYR/VIAL IV ONE (13:41)
[2024-12-06] MEDS: NITROGLYCERIN 2% OINT 1GM PKG TD ONE (13:41)
[2024-12-06] MEDS: ONDANSETRON HCL 4 MG/2 ML VIAL IV ONE (13:42)
[2024-12-06] MEDS: FUROSEMIDE 40 MG/4 ML VIAL IV ONE (13:44)
--- NOTE | 2024-12-06 13:54 | DVH ---
EXAM: XY CHEST PORTABLE Indication: cp Technique: Single frontal view of the chest was obtained Comparison: XY CHEST PORTABLE on DOS: 01/16/24, XY CHEST PORTABLE on DOS: 06/09/23 FINDINGS: Lines and Tubes: None Lungs: No focal consolidation. Pleura: No effusion. No pneumothorax. Cardiomediastinal contours: Unremarkable Bones: No acute osseous abnormality. IMPRESSION: No acute cardiopulmonary disease.
--- NOTE | 2024-12-06 14:01 | ECG ---
[facility] Test Date: 2024-12-06 Test Time: 13:03:50 Pat Name: THANH DIAZ Department: ER Room: 0294T Gender: F Child Life Specialist: LAYTON : 1960 Requested By: KINA CUNNINGHAM Order Number: [id number] Reading MD: Dickson Livingston Measurements Intervals [place] Rate: 82 P: 33 [place]: 136 QRS: -18 QRSD: 92 T: 19 QT: 376 QTc: 439 Interpretive Statements Sinus rhythm Probable left atrial enlargement Borderline left axis deviation Low voltage, precordial leads Probable anteroseptal infarct, old Electronically Signed On 12-13-2024 15:31:36 PDT by Dickson Livingston Please click the below link to view image of tracing.
--- NOTE | 2024-12-06 14:04 | ED.PDOC ---
HPI Comments 64y F who presents to the ED via EMS for chief complaint of chest pain. Pt states she has been having chest pain since yesterday approx 1600. Pt states the pain came on suddenly, L side of chest, with pain radiating to the L side of neck and upper back, with no associated exacerbating or relieving factors. Pt states she started to have a headache and states she took 1x of her nitro. Pt states she felt better and went to bed later that night. Pt states she was tossing and turning all night due to her chest pain intermittently coming on and off. Pt states she eventually was able to fall asleep. Pt states she woke up this AM with shortness of breath and chest pain and due to persistence of her symptoms, pt called EMS. EMS states pt had vitals checked and everything but her BP was normal with noted BP around 220/110. Pt had IV established and was given 0.8 nitro and 324 ASA oral intake. Pt states her pain was still 9/10 upon arrival to the ED. Pt in the ED, otherwise has noted BP of 170/80 but otherwise stable vitals including 02 sat of 96% on room air, temp of 97.8 F and rr 19 with heart rate of 92. Pt has noted history of HTN. Pt otherwise denies any other symptoms at this time. Chief Complaint: Chest Pain Time Seen by MD: 13:45 Primary Care Provider: ruthie Coronado Notes: Medications, Allergies Allergies: Coded Allergies: Valproic Acid (Verified Allergy, Unknown, 06/09/23) Home Meds Active Scripts Ascorbic Acid (Vitamin C 500 mg) 1 Chw Chw, 1 CHW PO DAILY@BREAKFAST, #30 TAB.CHEW To take vitamin-C along with your daily iron for better absorption. Prov:TAYLOR TONEY MD 01/20/24 Ferrous Sulfate (Ferrous Sulfate) 300 Mg/5 Ml Sr, 300 MG PO DAILY@BREAKFAST, #240 SYP Prov:TAYLOR TONEY MD 01/20/24 Reported Medications Potassium Chloride (Potassium Chloride ER) 10 Meq Tab, 1 TAB PO DAILY for 90 Days, #90 01/17/24 Losartan Potassium (Losartan Potassium) 50 Mg Tab, 1 TAB PO DAILY for 90 Days, #90 01/17/24 Carvedilol (COREG) 3.125 Mg Tab, 1 TAB PO BID for 30 Days, #60 11/26/23 Clopidogrel Bisulfate (Plavix) 75 Mg Tab, 1 TAB PO DAILY, TAB 1 Refill 11/26/23 Albuterol Sulfate (Proair Digihaler) 108 Mcg/Act Aer, 90 MCG IN Q6HPRN, AER 06/10/23 Aspirin (Aspir-81) 81 Mg Tab, 1 TAB PO DAILY, #30 TAB 5 Refills 06/10/23 Zonisamide (Zonisamide) 100 Mg Cap, CAP PO UD for 30 Days, #150 Take 2 capsules by mouth in the morning, and 3 capsules by mouth in the evening. 06/10/23 Levetiracetam (Levetiracetam) 1,000 Mg Tab, 1 TAB PO BID 06/10/23 Topiramate (Topiramate) 50 Mg Tab, 1 TAB PO BID 06/10/23 Furosemide (Furosemide) 20 Mg Tab, 1 TAB PO BID 06/10/23 Atorvastatin Calcium (ATORVASTATIN CALCIUM) 40 Mg Tab, 1 TAB PO DAILY 06/10/23 Hydralazine HCl (Hydralazine HCl) 25 Mg Tab, 1 TAB PO BIDPRN PRN for blood pre ssure 06/10/23 Information Source: Patient, Emergency Med Personnel Mode of Arrival: EMS Past Medical History PAST MEDICAL HISTORY: CHF, CKF, CVA, High Lipids, HTN, Seizures Surgical History: Hysterectomy TRIAL COURT JUDGE History: No Pertinent TRIAL COURT JUDGE History Family History Family History: Reviewed,noncontributory to illness, No family hx of Cancer, No family hx of DM, No family hx of Heart jalil, No family hx of HTN, No family hx ofKidney jalil, No family hx of Liver jalil, No family hx of Lung jalil, No family hx of Stroke Social History Smoker: Non-Smoker Alcohol: Denies ETOH Use Drugs: Denies Drug Use Lives In: Home Constitutional: denies: chills, diaphoresis, fatigue, fever, malaise, sweats, weakness, others EENTM: denies: blurred vision, double vision, ear bleeding, ear discharge, ear drainage, ear pain, ear ringing, eye pain, eye redness, hearing loss, mouth pain, mouth swelling, nasal discharge, nose bleeding, nose congestion, nose pain, photophobia, tearing, throat pain, throat swelling, voice changes, others Respiratory: reports: shortness of breath; denies: cough, hemoptysis, orthopnea, SOB at rest, SOB with excertion, stridor, wheezing, others Cardiovascular: reports: chest pain; denies: dizzy spells, diaphoresis, Dyspnea on exertion, edema, irregular heart beat, left arm pain, lightheadedness, palpitations, PND, syncope, others Gastrointestinal: denies: abdomen distended, abdominal pain, blood streaked bowels, constipated, diarrhea, dysphagia, difficulty swallowing, hematemesis, melena, nausea, poor appetite, poor fluid intake, rectal bleeding, rectal pain, vomiting, others Genitourinary: denies: abnormal vagina bleeding, burning, dyspareunia, dysuria, flank pain, frequency, hematuria, incontinence, pain, , vagina disch arge, urgency, others Neurological: denies: dizziness, fainting, headache, left sided numbness, left sided weakness, numbness, paresthesia, pre-existing deficit, right sided numbness, right sided weakness, seizure, speech problems, tingling, tremors, weakness, others Musculoskeletal: denies: back pain, gout, joint pain, joint swelling, muscle pain, muscle stiffness, neck pain, others Integumetry: denies: bruises, change in color, change in hair/nails, dryness, laceration, lesions, lumps, rash, wounds, others Allergic/Immunocompromised: denies: Difficulty Healing, Frequent Infections, Hives, Itching, others Hematologic/Lymphatic: denies: anemia, blood clots, easy bleeding, easy bruising, swollen glands, others Endocrine: denies: excessive hunger, excessive sweating, excessive thirst, excessive urination, flushing, intolerance to cold, intolerance to heat, unexplained weight gain, unexplained weight loss, others Psychiatric: denies: anxiety, bipolar disorder, depression, hopeless, panic disorder, schizophrenia, sleepless, suicidal, others All Other Systems: Reviewed and Negative Physical Exam General Appearance: Moderate Distress, Obese HEENT: Other (Pupils and face symmetric. Moist mucous membranes.) Neck: Full Range of Motion, Normal Inspection Respiratory: Decreased Breath Sounds, No Accessory Muscle Use, No Respiratory Distress Cardiovascular: No Edema, No JVD, Regular Rate/Rhythm Breast Exam: Deferred Gastrointestinal: Non Tender, Soft Genitalia: Deferred Pelvic: Deferred Rectal: Deferred Extremities: Normal inspection, Normal range of motion, Non-tender, No pedal edema Neurologic: Alert (Oriented x4), Other (Tearful, no gross focal deficit) Cerebellar Function: NOT DONE Reflexes: NOT DONE Skin: Dry, Normal Color, Warm Lymphatic: NOT DONE EKG EKG : Comments Sinus rhythm, rate 82, normal intervals, left axis deviation, old inferior or anteroseptal infarct, nonspecific T change. Was a procedure done? Was a procedure done?: No CP Differential Dx Differential Diagnosis: Angina, Anxiety / Panic Attack, Atrial Dysrhythmia, Electrolyte Disorder, Heart Failure, NE, Pulmonary Embolus Differential Diagnosis: CHF, HTN Essential, HTN Accelerated, HTN Encephalopathy, Medical NonCompliance Differential Diagnosis: Chest Wall Pain, Costochondritis, Esophageal reflux/spasm, Gastritis, Pericarditis, Pneumonia X-Ray, Labs, Meds, VS Vital Signs Date Time Temp Pulse Resp B/P (MAP) Pulse Ox O2 Delivery O2 Flow Rate FiO2 12/06/24 19:30 98.1 77 17 159/79 (105) 99 98.1 12/06/24 19:30 77 17 99 Nasal Cannula* 2 28 12/06/24 18:00 58 12 152/75 (100) 97 12/06/24 16:10 71 12 98 Room Air* 0 N/A Nasal Cannula* 12/06/24 16:00 69 12/06/24 15:59 98.0 69 13 143/74 (97) 98 98.0 12/06/24 14:45 128/56 12/06/24 14:30 63 12 128/56 12/06/24 13:41 78 20 154/83 12/06/24 13:41 154/83 12/06/24 13:13 97.8 92 18 170/80 (110) 96 97.8 12/06/24 13:03 82 Lab Test 12/06/24 16:30 12/06/24 14:40 Range/Units Troponin I High Sensitivity 8 7 </=34 ng/L White Blood Count 7.1 4.4-10.8 10^3/uL Red Blood Count 4.06 4.0-5.20 10^6/uL Hemoglobin 13.9 12.2-16.2 g/dL Hematocrit 41.2 36.0-46.0 % Mean Corpuscular Volume 101.4 H 80.0-100.0 fL Mean Corpuscular Hemoglobin 34.1 H 28.0-32.0 pg Mean Corpuscular Hemoglobin Concent 33.7 32.0-36.0 g/dL Red Cell Distribution Width 14.5 H 11.8-14.3 % Platelet Count 171 140-450 10^3/uL Mean Platelet Volume 9.1 6.9-10.8 fL Neutrophils (%) (Auto) 53.4 37.0-80.0 % Lymphocytes (%) (Auto) 34.1 10.0-50.0 % Monocytes (%) (Auto) 8.6 0.0-12.0 % Eosinophils (%) (Auto) 2.9 0.0-7.0 % Basophils (%) (Auto) 1.0 0.0-2.0 % Neutrophils # (Auto) 3.8 1.6-8.6 10 ^3/uL Lymphocytes # (Auto) 2.4 0.4-5.4 10 ^3/uL Monocytes # (Auto) 0.6 0-1.3 10 ^3/uL Eosinophils # (Auto) 0.2 0-0.8 10 ^3/uL Basophils # (Auto) 0.1 0-0.2 10 ^3/uL Nucleated Red Blood Cells 0.1 % Sodium Level 137 136-145 mmol/L Potassium Level 3.7 3.5-5.1 mmol/L Chloride Level 106 98-107 mmol/L Carbon Dioxide Level 23 20-31 mmol/L Anion Gap 8 5-15 Blood Urea Nitrogen 9 9-23 mg/dL Creatinine 1.02 0.550-1.02 mg/dL Glomerular Filtration Rate Calc 61 >90 mL/min BUN/Creatinine Ratio 8.8 L 10.0-20.0 Serum Glucose 143 H 74-106 mg/dL Calcium Level 9.3 8.7-10.4 mg/dL B-Type Natriuretic Peptide 143.06 0-100 pg/mL Current Medications Medications (Trade) Dose Ordered Sig/Ada Route Start Time Stop Time Status Last Admin Nitroglycerin (Nitro-Bid) 1 pkg ONCE ONCE TD 12/06/24 13:30 12/06/24 13:31 DC 12/06/24 13:41 Morphine Sulfate 4 mg ONCE ONCE IV 12/06/24 13:30 12/06/24 13:31 DC 12/06/24 13:41 Ondansetron HCl (Zofran) 4 mg ONCE ONCE IV 12/06/24 13:30 12/06/24 13:31 DC 12/06/24 13:42 PROCEDURE(s): CXRP - CHEST PORTABLE REASON: cp ORDER NUMBER(s): [id number], ACCESSION NUMBER(s): [id number] EXAM: XY CHEST PORTABLE Indication: cp Technique: Single frontal view of the chest was obtained Comparison: XY CHEST PORTABLE on DOS: 01/16/24, XY CHEST PORTABLE on DOS: 06/09/23 FINDINGS: Lines and Tubes: None Lungs: No focal consolidation. Pleura: No effusion. No pneumothorax. Cardiomediastinal contours: Unremarkable Bones: No acute osseous abnormality. IMPRESSION: No acute cardiopulmonary disease. X-Ray, Labs, Meds, VS Comment 64-year-old female with a history of CHF, CKD, seizure, CVA, hypertension and dyslipidemia brought in by EMS complaining of chest pain Vitals remarkable for BP 220/110 Exam remarkable for moderate distress, tearful, appears to be in pain Rhythm strip independently interpreted by me: Sinus rhythm, rate 82, no ectopy. Chest x-ray unremarkable CBC, basic metabolic and 2 serial troponins unremarkable, BNP 143.06 Patient had received p.o. aspirin and nitroglycerin by EMS which only partially relieved her pain Patient treated with the following in the ED: Nitro-Bid 1/2 inch to chest wall, however patient was still stating she had moderate chest pain. She subsequently received morphine 4 mg IV, Zofran 4 mg IV. On re-evaluation patient's blood pressure was borderline low, and she appeared pale. Chest pain had improved. Plan is to admit the patient for Cardiology evaluation and ongoing pain control Case discussed with YAO Brunson, who agreed to admit the patient. Time of 1ST Reevaluation: 17:00 Reevaluation 1ST: Improved Patient Education/Counseling: Diagnosis, Treatment Family Education/Counseling: No Family Present SEPSIS Sepsis Screen Date sepsis recognized/suspect: Dec 06, 2024 Time Sepsis recognized/suspect: 1305 Recent Procedure: No On Antibiotic Therapy: No Respiratory Rate >20: No Heart Rate >90: Yes Temp<36 C (96.8 F) or >38.3 C: No SBP <90 or MAP <65 mmHG: No New Acute Mental Status Change: No Is the patient on CPAP, BIPAP,: No SEPSIS EXCLUSION NOTE: Sepsis Exclusion Note: Patient presents with SIRS criteria, but the SIRS response is attributed to [ pain], not a suspected infection. Sepsis bundle is not initiated at this time, due to this reason. Further management will focus on the treatment of the above condition (s). Physician Orders Chest Portable (12/06/24 13:04) Admit (12/06/24 20:30) * Cardiology Consult (12/06/24 20:30) Echo 2d Mode Cardiac Dop (12/06/24 20:30) Strict I & O QSHIFT (12/06/24 20:30) Full Code (12/06/24:) Cardiac Diet-2gna,Lofat,Lochol (12/07/24 Breakfast) Troponin-I Hs (12/06/24 22:00) Troponin-I Hs (12/07/24 06:00) Troponin-I Hs (12/07/24 14:00) Basic Metabolic Panel (12/07/24 05:00) Basic Metabolic Panel (12/08/24 05:00) Nitroglycerin Sublingual (Ntrostat Subli (12/06/24 20:30) Morphine Sulfate Injection (12/06/24:30) Stat Ekg For Chest Pain (12/06/24 20:30) Notify Md Of Changes From Base (12/06/24 20:30) Light Bulb Assembler For 24 Hours (12/06/24 20:30) Emergency Dysrhythmia Protocol (12/06/24 20:30) Rhythm Strips Once Every Shift (12/06/24 20:30) Oxygen By Nasal Cannula (12/06/24 20:30) Ondansetron Hcl (Zofran) (12/06/24 20:30) Acetaminophen Tablet (Tylenol Tablet) (12/06/24 20:30) Famotidine Tablet (Pepcid Tablet) (12/06/24 22:00) Hydrocodone-Acet 5/325mg Tab ([place] 5/32 (12/06/24 20:30) Atorvastatin (Lipitor) (12/06/24 22:00) Aspirin Tablet (12/07/24 10:00) Communication Order (12/06/24 20:34) Lipid Panel (12/07/24 04:00) Hydralazine Injection (Apresoline Inject (12/06/24 20:45) Vital Signs Date Time Temp Pulse Resp B/P (MAP) Pulse Ox O2 Delivery O2 Flow Rate FiO2 12/06/24 19:30 98.1 77 17 159/79 (105) 99 98.1 12/06/24 19:30 77 17 99 Nasal Cannula* 2 28 12/06/24 18:00 58 12 152/75 (100) 97 12/06/24 16:10 71 12 98 Room Air* 0 N/A Nasal Cannula* 12/06/24 16:00 69 12/06/24 15:59 98.0 69 13 143/74 (97) 98 98.0 12/06/24 14:45 128/56 12/06/24 14:30 63 12 128/56 12/06/24 13:41 78 20 154/83 12/06/24 13:41 154/83 12/06/24 13:13 97.8 92 18 170/80 (110) 96 97.8 12/06/24 13:03 82 Laboratory Tests Test 12/06/24 14:40 White Blood Count 7.1 10^3/uL (4.4-10.8) Medications Medications Dose Ordered Sig/Ada Route Start Time Stop Time Status Last Admin Dose Admin Morphine Sulfate 4 mg ONCE ONCE IV 12/06/24 13:30 12/06/24 13:31 DC 12/06/24 13:41 Nitroglycerin 1 pkg ONCE ONCE TD 12/06/24 13:30 12/06/24 13:31 DC 12/06/24 13:41 Ondansetron HCl 4 mg ONCE ONCE IV 12/06/24 13:30 12/06/24 13:31 DC 12/06/24 13:42 Departure 1 Departure Time of Disposition: 17:00 Impression: Primary Impression: Unstable angina Disposition: 09 ADMITTED INPATIENT Admit to: [facility] Condition: Guarded Critical Care Note Critical Care Time?: Yes (35 min-critical care time only) Critical care comment: Critical care time including multiple bedside re-evaluations, review of lab and imaging studies, and discussion of the case with the admitting provider. Patient is high risk for hemodynamic decompensation. Stability Stability form required: No Heart Score Heart Score: Heart Score Response (Comments) Value History Highly Suspicious 2 EKG Repolarization Disturb 1 Age >65 2 Risk Factors 1 or 2 risk factors 1 Troponin Normal limit 0 Total 6 I personally scribed for KINA SOTO MD ([email or web address]) on 12/06/24 at 14:04. Electronically submitted by Leia Lopez ([facility]). KINA SOTO MD Dec 06, 2024 14:04
[2024-12-06 14:55] LABS: Hematocrit 41.2 % (36.0-46.0); Hemoglobin 13.9 g/dL (12.2-16.2); Mean Corpuscular Hemoglobin 34.1 pg (28.0-32.0); Mean Corpuscular Volume 101.4 fL (80.0-100.0); Nucleated Red Blood Cells % 0.1 %
[2024-12-06 15:02] LABS: Chloride 106 mmol/L (98-107); Potassium 3.7 mmol/L (3.5-5.1); Sodium 137 mmol/L (136-145)
[2024-12-06 15:03] LABS: Anion Gap 8 (5-15); Calcium 9.3 mg/dL (8.7-10.4); Carbon Dioxide 23 mmol/L (20-31)
[2024-12-06 15:08] LABS: BUN/Creatinine Ratio 8.8 (10.0-20.0); Blood Urea Nitrogen 9 mg/dL (9-23)
[2024-12-06 15:10] LABS: Glucose 143 mg/dL (74-106)
[2024-12-06 16:10] VITALS: PULSE 71; RESP 12; O2SAT 98
[2024-12-06 19:30] VITALS: PULSE 77; RESP 17; O2SAT 99
[2024-12-06] MEDS ORDERED: ACETAMINOPHEN 325 MG TAB PO PRN (20:30)
[2024-12-06] MEDS ORDERED: NITROGLYCERIN 0.4 MG SL TAB SL PRN (20:30)
[2024-12-06] MEDS: MORPHINE SULFATE INJ 2 MG/ml SYRG IV PRN (21:50)
[2024-12-06] MEDS: ATORVASTATIN 20 MG TAB PO SCH (22:14)
[2024-12-06] MEDS: FAMOTIDINE 20 MG TAB PO SCH (22:15)
[2024-12-07] VITALS (7 sets, daily range): BP systolic 149–168; BP diastolic 67–94; PULSE 67–82; RESP 18–20; TEMP 98–98.5; O2SAT 93–96
--- NOTE | 2024-12-07 00:30 | DVHHP2 ---
Admitting Diagnosis: Unstable Angina History of Present Illness History Source: Patient Exam Limitations: No limitations HPI Mrs. Corazon Boyce is a 64 yo female with a history of CHF, CKF, CVA, HLD, Hypertension, seizures who presents with a chief complaint of left sided chest pain pressure like in nature radiating to neck and left upper back. Patient reports chest pain started Wednesday night intermittently and worsened yesterday with no relief after taking SL Nitroglycerine. Patient endorses associated dyspnea with the chest pain. Patient denies nausea, vomiting, fevers, chills, abdominal pain, dizziness. Patient admitted for further evaluation. Home Meds Reported Medications Potassium Chloride (Potassium Chloride ER) 10 Meq Tab, 1 TAB PO DAILY for 90 Days, #90 01/17/24 Losartan Potassium (Losartan Potassium) 50 Mg Tab, 1 TAB PO DAILY for 90 Days, #90 01/17/24 Carvedilol (COREG) 3.125 Mg Tab, 1 TAB PO BID for 30 Days, #60 11/26/23 Clopidogrel Bisulfate (Plavix) 75 Mg Tab, 1 TAB PO DAILY, TAB 1 Refill 11/26/23 Albuterol Sulfate (Proair Digihaler) 108 Mcg/Act Aer, 90 MCG IN Q6HPRN, AER 06/10/23 Aspirin (Aspir-81) 81 Mg Tab, 1 TAB PO DAILY, #30 TAB 5 Refills 06/10/23 Zonisamide (Zonisamide) 100 Mg Cap, CAP PO UD for 30 Days, #150 Take 2 capsules by mouth in the morning, and 3 capsules by mouth in the evening. 06/10/23 Levetiracetam (Levetiracetam) 1,000 Mg Tab, 1 TAB PO BID 06/10/23 Topiramate (Topiramate) 50 Mg Tab, 1 TAB PO BID 06/10/23 Furosemide (Furosemide) 20 Mg Tab, 1 TAB PO BID 06/10/23 Atorvastatin Calcium (ATORVASTATIN CALCIUM) 40 Mg Tab, 1 TAB PO DAILY 06/10/23 Hydralazine HCl (Hydralazine HCl) 25 Mg Tab, 1 TAB PO BIDPRN PRN for blood pressure 06/10/23 Past Medical History Cardiac: CHF, HTN, Hyperlipidemia Central Nervous System: CVA, Seizure Renal/: CKD Patient Family History: Colon cancer G8 MOTHER, Onset:50's - 60 FH: arrhythmogenic right ventricular cardiomyopathy G8 SISTER, Onset:Unknown FH: colon cancer FH: sudden cardiac (SCD) G8 FATHER, Onset:Unknown Hypertension G8 MOTHER, Onset:Unknown Smoker: No Hx (Negative) Alocohol: None Drugs: None Domestic Violence: Neg Review of Systems Constitutional: No symptom reported Ears, Nose, & Throat: No symptom reported Eyes: No symptom reported Pulmonary/Respiratory: Dyspnea Cardiovascular: Chest Pain Gastrointestinal: No symptom reported Genitourinary: No symptom reported Musculoskeletal: No symptom reported Skin: No symptom reported Psychiatric: No symptom reported Endocrine: No symptom reported Hemotologic/Lymphatic: No symptom reported H&P Exam Vital Signs Vital Signs Date Time Temp Pulse Resp B/P (MAP) Pulse Ox O2 Delivery O2 Flow Rate FiO2 12/07/24 00:00 66 14 177/78 (111) 98 12/06/24 19:30 98.1 98.1 12/06/24 19:30 Nasal Cannula* 2 28 General Appeara: Well developed, Well nourished, Normal Appearance Head Exam: Normal inspection Neck Exam: Normal inspection, Non-tender, Normal alignment Eye Exam: bilateral eye Normal inspection, bilateral eye PERRL, bilateral eye EOMI Ear Exam: bilateral ear Auricle normal Nasal Exam: Normal inspection Mouth: Normal Inspection Pulmonary/Respiratory: Normal inspection, Normal breath sounds, Chest non- tender, Lungs clear Cardiovascular/Chest: Normal inspection, Regular rate, Normal Rhythm Peripheral Pulses: 2+ dorsalis pedis (R), 2+ dorsalis pedis (L), 2+ Radial (R), 2+ Radial (L) Abdominal Exam: Normal bowel sounds, Soft Rectal Exam: Deferred Back Exam: Normal inspection Legs: bilateral leg non-tender, bilateral leg normal inspection, bilateral leg normal range of motion Tendon/ Neuro: Normal sensation, Normal motor function STRAPPER Exam: Normal hearing, Normal speech, PERRL Motor/Sensory: Normal sensory function, Normal motor function Neuro/Mental St: Alert, Oriented Appearance: Appropriate appearance, Appropriate insight Eye contact/ Speech: Cooperative, Good eye contact, Normal speech Thoughts/Psych: Normal thought pattern Skin Exam: Normal inspection, Normal color, Warm/dry SEPSIS Sepsis Screen Date sepsis recognized/suspect: Dec 06, 2024 Time Sepsis recognized/suspect: 1929 Recent Procedure: No On Antibiotic Therapy: No Respiratory Rate >20: No Heart Rate >90: No Temp<36 C (96.8 F) or >38.3 C: No SBP <90 or MAP <65 mmHG: No New Acute Mental Status Change: No Is the patient on CPAP, BIPAP,: No Physician Orders Admit (12/06/24 20:30) * Cardiology Consult (12/06/24 20:30) Echo 2d Mode Cardiac Dop (12/06/24 20:30) Strict I & O QSHIFT (12/06/24 20:30) Full Code (12/06/24 20:30) Cardiac Diet-2gna,Lofat,Lochol (12/07/24 Breakfast) Troponin-I Hs (12/07/24 06:00) Troponin-I Hs (12/07/24 14:00) Basic Metabolic Panel (12/07/24 05:00) Basic Metabolic Panel (12/08/24 05:00) Nitroglycerin Sublingual (Ntrostat Subli (12/06/24 20:30) Morphine Sulfate Injection (12/06/24 20:30) Stat Ekg For Chest Pain (12/06/24 20:30) Notify Md Of Changes From Base (12/06/24 20:30) Drug Enforcement Agent For 24 Hours (12/06/24 20:30) Emergency Dysrhythmia Protocol (12/06/24 20:30) Rhythm Strips Once Every Shift (12/06/24 20:30) Oxygen By Nasal Cannula (12/06/24 20:30) Ondansetron Hcl (Zofran) (12/06/24 20:30) Acetaminophen Tablet (Tylenol Tablet) (12/06/24 20:30) Famotidine Tablet (Pepcid Tablet) (12/06/24 22:00) Hydrocodone-Acet 5/325mg Tab ([place] 5/32 (12/06/24 20:30) Atorvastatin (Lipitor) (12/06/24 22:00) Aspirin Tablet (12/07/24 10:00) Communication Order (12/06/24 20:34) Hydralazine Injection (Apresoline Inject (12/06/24 20:45) Lipid Panel (12/07/24 05:00) Vital Signs Date Time Temp Pulse Resp B/P (MAP) Pulse Ox O2 Delivery O2 Flow Rate FiO2 12/07/24 00:00 66 14 177/78 (111) 98 12/06/24 22:26 77 16 168/77 12/06/24 22:00 63 12 168/77 (107) 96 12/06/24 21:50 75 15 152/73 12/06/24 20:00 59 12/06/24 20:00 59 13 166/78 (107) 98 12/06/24 19:30 98.1 77 17 159/79 (105) 99 98.1 12/06/24 19:30 77 17 99 Nasal Cannula* 2 28 12/06/24 18:00 58 12 152/75 (100) 97 Laboratory Tests Test 12/06/24 14:40 White Blood Count 7.1 10^3/uL (4.4-10.8) Medications Medications Dose Ordered Sig/Ada Route Start Time Stop Time Status Last Admin Dose Admin Atorvastatin Calcium 40 mg HS PO 12/06/24 22:00 12/06/24 22:14 40 MG Famotidine 20 mg BID PO 12/06/24 22:00 12/06/24 22:15 20 MG Morphine Sulfate 2 mg Q30M PRN IV 12/06/24 20:30 12/06/24 21:50 2 MG Morphine Sulfate 4 mg ONCE ONCE IV 12/06/24 13:30 12/06/24 13:31 DC 12/06/24 13:41 4 MG Nitroglycerin 1 pkg ONCE ONCE TD 12/06/24 13:30 12/06/24 13:31 DC 12/06/24 13:41 1 PKG Ondansetron HCl 4 mg ONCE ONCE IV 12/06/24 13:30 12/06/24 13:31 DC 12/06/24 13:42 4 MG Labs/Xrays Labs Test 12/06/24 22:07 12/06/24 14:40 Range/Units Troponin I High Sensitivity 5 </=34 ng/L White Blood Count 7.1 4.4-10.8 10^3/uL Red Blood Count 4.06 4.0-5.20 10^6/uL Hemoglobin 13.9 12.2-16.2 g/dL Hematocrit 41.2 36.0-46.0 % Mean Corpuscular Volume 101.4 H 80.0-100.0 fL Mean Corpuscular Hemoglobin 34.1 H 28.0-32.0 pg Mean Corpuscular Hemoglobin Concent 33.7 32.0-36.0 g/dL Red Cell Distribution Width 14.5 H 11.8-14.3 % Platelet Count 171 140-450 10^3/uL Mean Platelet Volume 9.1 6.9-10.8 fL Neutrophils (%) (Auto) 53.4 37.0-80.0 % Lymphocytes (%) (Auto) 34.1 10.0-50.0 % Monocytes (%) (Auto) 8.6 0.0-12.0 % Eosinophils (%) (Auto) 2.9 0.0-7.0 % Basophils (%) (Auto) 1.0 0.0-2.0 % Neutrophils # (Auto) 3.8 1.6-8.6 10 ^3/uL Lymphocytes # (Auto) 2.4 0.4-5.4 10 ^3/uL Monocytes # (Auto) 0.6 0-1.3 10 ^3/uL Eosinophils # (Auto) 0.2 0-0.8 10 ^3/uL Basophils # (Auto) 0.1 0-0.2 10 ^3/uL Nucleated Red Blood Cells 0.1 % Sodium Level 137 136-145 mmol/L Potassium Level 3.7 3.5-5.1 mmol/L Chloride Level 106 98-107 mmol/L Carbon Dioxide Level 23 20-31 mmol/L Anion Gap 8 5-15 Blood Urea Nitrogen 9 9-23 mg/dL Creatinine 1.02 0.550-1.02 mg/dL Glomerular Filtration Rate Calc 61 >90 mL/min BUN/Creatinine Ratio 8.8 L 10.0-20.0 Serum Glucose 143 H 74-106 mg/dL Calcium Level 9.3 8.7-10.4 mg/dL B-Type Natriuretic Peptide 143.06 0-100 pg/mL Assessment/Plan Problem List: (1) Unstable angina Plan This is a 64 yo female with known history of CHF, CKF, CVA, HLD, HTN, Seizures who presents with left sided chest pain radiating to neck, left upper back. Patient found to have 1. Unstable Angina 2. Hypertension 3. Chronic CHF 4. Chronic Kidney failure 5. hx of CVA 6. hx of Seizures Plan Admit Telemetry unit Cardiology consultation, 2D echocardiogram, serial troponin levels, ASA, Statin Lipid panel Analgesics as needed Supplemental oxygen as needed to keep 02 saturations above 92% Antihypertensive as needed for optimal blood pressure management Continue home medications when reconciled Discussed all above with patient who verbalizes agreement and understanding of care plan. All questions were answered. Discussed with supervising MD. Plan discussed with: Patient, Other Code Visit Code Visit Total Time (mins): 45 LUPIS BENÍTEZ Dec 07, 2024 00:30 SAIDA LOMBARDO MD Dec 07, 2024 15:04
[2024-12-07] MEDS: HYDROcodone-ACET 5/325MG TAB PO PRN (05:15)
[2024-12-07 07:18] LABS: Anion Gap 8 (5-15); Calcium 9.2 mg/dL (8.7-10.4); Carbon Dioxide 23 mmol/L (20-31); Chloride 105 mmol/L (98-107); Potassium 3.7 mmol/L (3.5-5.1)
[2024-12-07 07:23] LABS: Glucose 103 mg/dL (74-106); Sodium 136 mmol/L (136-145)
[2024-12-07 07:24] LABS: BUN/Creatinine Ratio 8.6 (10.0-20.0); Triglycerides 75 mg/dL (< 150)
[2024-12-07 07:25] LABS: Cholesterol 192 mg/dL (< 200)
[2024-12-07 07:27] LABS: Blood Urea Nitrogen 9 mg/dL (9-23); HDL Cholesterol 68 mg/dL (40-59)
[2024-12-07] MEDS: levETIRAcetam 500 MG TAB PO SCH (15:34)
[2024-12-07] MEDS: TOPIRAMATE 25 MG TAB PO SCH (15:35)
[2024-12-07] MEDS: CARVEDILOL 3.125 MG TAB PO SCH (21:27)
[2024-12-07] MEDS: LOSARTAN POTASSIUM 50 MG TAB PO SCH (21:28)
--- NOTE | 2024-12-07 21:45 | DVHINCON2 ---
Date of service: Dec 07, 2024 Referring Physician Inocente Reason for Consultation Chest pain History of Present Illness This is a 64 year old female with a PMH of CHF, CKF, CVA, High Lipids, HTN, Seizures who was brought in by EMS due to complaints of left sided chest pain x 1 day. Patient states the pain came on suddenly to the left side of her chest, with radiation to the left side of her neck and upper back, with no associated exacerbating or relieving factors. Patient reported also having a headache and took 1 Nitro at home. Patient notes that her symptoms resolved and went to bed. Patient states her symptoms returned later on last night and caused the patient to toss and turn in bed due to her pain being intermittent. Patient reports waking up this morning feeling short of breath as well as her left sided chest pain being more persistent and due to persistence of her symptoms, patient called EMS. Patient was found to be hypertensive at 220/110 by EMS. Chest x-ray showed NAD. EKG Is NSR at 82. Troponin is negative x3. Patient was admitted to the hospital. I am asked to consult on this patient. Family History: Colon cancer G8 MOTHER, Onset:50's - 60 FH: arrhythmogenic right ventricular cardiomyopathy G8 SISTER, Onset:Unknown FH: colon cancer FH: sudden cardiac (SCD) G8 FATHER, Onset:Unknown Hypertension G8 MOTHER, Onset:Unknown Allergies: Coded Allergies: Valproic Acid (Verified Allergy, Unknown, 06/09/23) Home Meds Reported Medications Potassium Chloride (Potassium Chloride ER) 10 Meq Tab, 1 TAB PO DAILY for 90 Days, #90 01/17/24 Losartan Potassium (Losartan Potassium) 50 Mg Tab, 1 TAB PO DAILY for 90 Days, #90 01/17/24 Carvedilol (COREG) 3.125 Mg Tab, 1 TAB PO BID for 30 Days, #60 11/26/23 Clopidogrel Bisulfate (Plavix) 75 Mg Tab, 1 TAB PO DAILY, TAB 1 Refill 11/26/23 Albuterol Sulfate (Proair Digihaler) 108 Mcg/Act Aer, 90 MCG IN Q6HPRN, AER 06/10/23 Aspirin (Aspir-81) 81 Mg Tab, 1 TAB PO DAILY, #30 TAB 5 Refills 06/10/23 Zonisamide (Zonisamide) 100 Mg Cap, CAP PO UD for 30 Days, #150 Take 2 capsules by mouth in the morning, and 3 capsules by mouth in the evening. 06/10/23 Levetiracetam (Levetiracetam) 1,000 Mg Tab, 1 TAB PO BID 06/10/23 Topiramate (Topiramate) 50 Mg Tab, 1 TAB PO BID 06/10/23 Furosemide (Furosemide) 20 Mg Tab, 1 TAB PO BID 06/10/23 Atorvastatin Calcium (ATORVASTATIN CALCIUM) 40 Mg Tab, 1 TAB PO DAILY 06/10/23 Hydralazine HCl (Hydralazine HCl) 25 Mg Tab, 1 TAB PO BIDPRN PRN for blood pressure 06/10/23 Current Medications Current Medications Medications (Trade) Dose Ordered Sig/Ada Route PRN Reason Start Time Stop Time Status Last Admin Nitroglycerin (Ntrostat Sublingual) 0.4 mg Q5MINP PRN SL FOR CHEST PAIN 12/06/24 20:30 Morphine Sulfate 2 mg Q30M PRN IV FOR CHEST PAIN 12/06/24 20:30 12/07/24 10:38 Ondansetron HCl (Zofran) 4 mg Q6HPRN PRN IV NAUSEA / VOMITING 12/06/24 20:30 Acetaminophen (Tylenol Tablet) 650 mg Q6HPRN PRN PO PAIN SCALE 1-3 OR TEMP>100.4 12/06/24 20:30 Hold Famotidine (Pepcid Tablet) 20 mg BID PO 12/06/24 22:00 12/07/24 10:28 Acetaminophen/ Hydrocodone Bitart ([place] 5/325MG Tab) 1 tab Q6HPRN PRN PO PAIN SCALE 1 THRU 6 12/06/24 20:30 12/07/24 05:15 Atorvastatin Calcium (Lipitor) 40 mg HS PO 12/06/24 22:00 12/06/24 22:14 Aspirin 81 mg DAILY PO 12/07/24 10:00 12/07/24 10:28 Hydralazine HCl (Apresoline Injection) 10 mg Q6HPRN PRN IV SBP>160 or DBP>105 12/06/24 20:45 Levetiracetam (Keppra Tablet) 1,000 mg BID PO 12/07/24 15:00 12/07/24 15:34 Topiramate (Topamax) 50 mg BID PO 12/07/24 15:00 12/07/24 15:35 Review of Systems Constitutional: denies: chills, diaphoresis, fatigue, fever, malaise, sweats, weakness, others EENTM: denies: blurred vision, double vision, ear bleeding, ear discharge, ear drainage, ear pain, ear ringing, eye pain, eye redness, hearing loss, mouth pain, mouth swelling, nasal discharge, nose bleeding, nose congestion, nose pain, photophobia, tearing, throat pain, throat swelling, voice changes, others Respiratory: reports: shortness of breath; denies: cough, hemoptysis, orthopnea, SOB at rest, SOB with excertion, stridor, wheezing, others Cardiovascular: reports: chest pain; denies: dizzy spells, diaphoresis, Dyspnea on exertion, edema, irregular heart beat, left arm pain, lightheadedness, palpitations, PND, syncope, others Gastrointestinal: denies: abdomen distended, abdominal pain, blood streaked bowels, constipated, diarrhea, dysphagia, difficulty swallowing, hematemesis, melena, nausea, poor appetite, poor fluid intake, rectal bleeding, rectal pain, vomiting, others Genitourinary: denies: abnormal vagina bleeding, burning, dyspareunia, dysuria, flank pain, frequency, hematuria, incontinence, pain, , vagina discharge, urgency, others Neurological: denies: dizziness, fainting, headache, left sided numbness, left sided weakness, numbness, paresthesia, pre-existing deficit, right sided numbness, right sided weakness, seizure, speech problems, tingling, tremors, weakness, others Musculoskeletal: denies: back pain, gout, joint pain, joint swelling, muscle pain, muscle stiffness, neck pain, others Integumetry: denies: bruises, change in color, change in hair/nails, dryness, laceration, lesions, lumps, rash, wounds, others Allergic/Immunocompromised: denies: Difficulty Healing, Frequent Infections, Hives, Itching, others Hematologic/Lymphatic: denies: anemia, blood clots, easy bleeding, easy bruising, swollen glands, others Endocrine: denies: excessive hunger, excessive sweating, excessive thirst, excessive urination, flushing, intolerance to cold, intolerance to heat, unexplained weight gain, unexplained weight loss, others Psychiatric: denies: anxiety, bipolar disorder, depression, hopeless, panic disorder, schizophrenia, sleepless, suicidal, others All Other Systems: Reviewed and Negative Vital Signs Vital Signs Date Time Temp Pulse Resp B/P (MAP) Pulse Ox O2 Delivery O2 Flow Rate FiO2 12/07/24 13:00 98.0 71 18 149/87 (107) 93 98.0 12/07/24 01:32 Nasal Cannula* 2 28 Physical Exam GENERAL: Alert and oriented x 3. No acute distress. Obese. EYES: PERRL, EOMI. Anicteric. HENT: Moist mucous membranes. LUNGS: Clear to auscultation bilaterally. CARDIOVASCULAR: Regular rate and rhythm. ABDOMEN: Soft, nontender and nondistended. EXTREMITIES: No edema. NEUROLOGIC: No focal neurological deficits. SKIN: Warm, dry. Labs/Diagnostic Data Labs Test 12/07/24 13:50 12/07/24 06:15 12/06/24 14:40 Range/Units Troponin I High Sensitivity 7 </=34 ng/L Sodium Level 136 136-145 mmol/L Potassium Level 3.7 3.5-5.1 mmol/L Chloride Level 105 98-107 mmol/L Carbon Dioxide Level 23 20-31 mmol/L Anion Gap 8 5-15 Blood Urea Nitrogen 9 9-23 mg/dL Creatinine 1.05 H 0.550-1.02 mg/dL Glomerular Filtration Rate Calc 59 >90 mL/min BUN/Creatinine Ratio 8.6 L 10.0-20.0 Serum Glucose 103 74-106 mg/dL Calcium Level 9.2 8.7-10.4 mg/dL Triglycerides Level 75 < 150 mg/dL Cholesterol Level 192 < 200 mg/dL LDL Cholesterol 119 H < 100 mg/dL HDL Cholesterol 68 H 40-59 mg/dL White Blood Count 7.1 4.4-10.8 10^3/uL Red Blood Count 4.06 4.0-5.20 10^6/uL Hemoglobin 13.9 12.2-16.2 g/dL Hematocrit 41.2 36.0-46.0 % Mean Corpuscular Volume 101.4 H 80.0-100.0 fL Mean Corpuscular Hemoglobin 34.1 H 28.0-32.0 pg Mean Corpuscular Hemoglobin Concent 33.7 32.0-36.0 g/dL Red Cell Distribution Width 14.5 H 11.8-14.3 % Platelet Count 171 140-450 10^3/uL Mean Platelet Volume 9.1 6.9-10.8 fL Neutrophils (%) (Auto) 53.4 37.0-80.0 % Lymphocytes (%) (Auto) 34.1 10.0-50.0 % Monocytes (%) (Auto) 8.6 0.0-12.0 % Eosinophils (%) (Auto) 2.9 0.0-7.0 % Basophils (%) (Auto) 1.0 0.0-2.0 % Neutrophils # (Auto) 3.8 1.6-8.6 10 ^3/uL Lymphocytes # (Auto) 2.4 0.4-5.4 10 ^3/uL Monocytes # (Auto) 0.6 0-1.3 10 ^3/uL Eosinophils # (Auto) 0.2 0-0.8 10 ^3/uL Basophils # (Auto) 0.1 0-0.2 10 ^3/uL Nucleated Red Blood Cells 0.1 % B-Type Natriuretic Peptide 143.06 0-100 pg/mL Assessment Unstable angina. Hypertension. Chronic CHF. CKD. History of CVA. History of Seizures. Plan/Recommendation I agree with your ongoing assessment and care of plan. Telemetry reviewed. Aspirin. IV Hydralazine for SBP >160. Nitro SL. Morphine and [place] for pain management. Additional plan as per the hospital course. A total of 45 minutes was spent reviewing the patient record, examining the patient, making a diagnostic and therapeutic plan, discussing this plan with medical personnel, following up on diagnostic studies and following the patient for clinical stability excluding any and all procedures. At least 50% of this time was spent in direct, [id number] contact. Plan discussed with: Patient CONSTANCE RALPH MD Dec 07, 2024 15:51
[2024-12-08] VITALS (7 sets, daily range): BP systolic 121–138; BP diastolic 61–82; PULSE 65–80; RESP 12–18; TEMP 97.3–98.4; O2SAT 93–97
[2024-12-08 07:16] LABS: Potassium 3.9 mmol/L (3.5-5.1); Sodium 139 mmol/L (136-145)
[2024-12-08 07:17] LABS: Anion Gap 9 (5-15); Calcium 8.9 mg/dL (8.7-10.4); Carbon Dioxide 23 mmol/L (20-31)
[2024-12-08 07:22] LABS: BUN/Creatinine Ratio 10.6 (10.0-20.0); Blood Urea Nitrogen 12 mg/dL (9-23)
[2024-12-08 07:24] LABS: Chloride 107 mmol/L (98-107); Glucose 119 mg/dL (74-106)
[2024-12-08] MEDS: CLOPIDOGREL BISULFATE 75 MG TAB PO SCH (09:36)
[2024-12-08] MEDS: FUROSEMIDE 20 MG TAB PO SCH (09:36)
[2024-12-08] MEDS: ONDANSETRON HCL 4 MG/2 ML VIAL IV PRN (13:07)
--- NOTE | 2024-12-08 13:57 | DVHDS2 ---
Discharge Summary Date of Admission Dec 06, 2024 at 20:30 Date of Discharge: Dec 08, 2024 Labs/Diagnostic Data: Laboratory Results Test 12/08/24 06:20 12/07/24 13:50 12/07/24 06:15 12/06/24 14:40 Sodium Level 139 mmol/L (136-145) Potassium Level 3.9 mmol/L (3.5-5.1) Chloride Level 107 mmol/L (98-107) Carbon Dioxide Level 23 mmol/L (20-31) Anion Gap 9 (5-15) Blood Urea Nitrogen 12 mg/dL (9-23) Creatinine 1.13 mg/dL (0.550-1.02) Glomerular Filtration Rate Calc 54 mL/min (>90) BUN/Creatinine Ratio 10.6 (10.0-20.0) Serum Glucose 119 mg/dL (74-106) Calcium Level 8.9 mg/dL (8.7-10.4) Troponin I High Sensitivity 7 ng/L (</=34) Triglycerides Level 75 mg/dL (< 150) Cholesterol Level 192 mg/dL (< 200) LDL Cholesterol 119 mg/dL (< 100) HDL Cholesterol 68 mg/dL (40-59) White Blood Count 7.1 10^3/uL (4.4-10.8) Red Blood Count 4.06 10^6/uL (4.0-5.20) Hemoglobin 13.9 g/dL (12.2-16.2) Hematocrit 41.2 % (36.0-46.0) Mean Corpuscular Volume 101.4 fL (80.0-100.0) Mean Corpuscular Hemoglobin 34.1 pg (28.0-32.0) Mean Corpuscular Hemoglobin Concent 33.7 g/dL (32.0-36.0) Red Cell Distribution Width 14.5 % (11.8-14.3) Platelet Count 171 10^3/uL (140-450) Mean Platelet Volume 9.1 fL (6.9-10.8) Neutrophils (%) (Auto) 53.4 % (37.0-80.0) Lymphocytes (%) (Auto) 34.1 % (10.0-50.0) Monocytes (%) (Auto) 8.6 % (0.0-12.0) Eosinophils (%) (Auto) 2.9 % (0.0-7.0) Basophils (%) (Auto) 1.0 % (0.0-2.0) Neutrophils # (Auto) 3.8 10 ^3/uL (1.6-8.6) Lymphocytes # (Auto) 2.4 10 ^3/uL (0.4-5.4) Monocytes # (Auto) 0.6 10 ^3/uL (0-1.3) Eosinophils # (Auto) 0.2 10 ^3/uL (0-0.8) Basophils # (Auto) 0.1 10 ^3/uL (0-0.2) Nucleated Red Blood Cells 0.1 % B-Type Natriuretic Peptide 143.06 pg/mL (0-100) Other Laboratory Tests 12/08/24 06:20 12/06/24 14:40 Brief Hx & Hospital Course: This is a 64 yo female with known history of CHF, CKF, CVA, HLD, HTN, Seizures who presents with left sided chest pain radiating to neck, left upper back. Patient was eventually admitted, closely monitored on telemetry. Patient's troponins are negative to date 12 lead EKG shows no evidence of any acute STT wave changes. Once cleared by Cardiology patient can be discharged home with a close follow up as an outpatient with the PCP as well as Cardiology if recommended. Condition at Discharge: Stable Final Diagnosis/Problems List This is a 64 yo female with known history of CHF, CKF, CVA, HLD, HTN, Seizures who presents with left sided chest pain radiating to neck, left upper back. Patient found to have 1. Chest pain ruled out OR 2. Hypertension 3. Chronic CHF 4. Chronic Kidney failure 5. hx of CVA 6. hx of Seizures Discharge Disposition: Home with Health Services SNF Discharge Will this Physician continue t: No Discharge Instruct/Medications Diet: Cardiac 2g Na,low cholest Activity: See Comment Activity comment: No driving while on seizure medications. Follow Up/Referral: Follow up with the PCP in 1-2 weeks Follow up with the Cardiology Dr Livingston in 1-2 weeks Medications: Resume home medications. Scheduled Albuterol Sulfate (Proair Digihaler), 90 MCG IN Q6HPRN, (Reported) Aspirin (Aspir-81), 1 TAB PO DAILY, (Reported) Atorvastatin Calcium (Atorvastatin Calcium), 1 TAB PO DAILY, (Reported) Carvedilol (Coreg), 1 TAB PO BID, (Reported) Clopidogrel Bisulfate (Plavix), 1 TAB PO DAILY, (Reported) Furosemide (Furosemide), 1 TAB PO BID, (Reported) Levetiracetam (Levetiracetam), 1 TAB PO BID, (Reported) Losartan Potassium (Losartan Potassium), 1 TAB PO DAILY, (Reported) Potassium Chloride (Potassium Chloride ER), 1 TAB PO DAILY, (Reported) Topiramate (Topiramate), 1 TAB PO BID, (Reported) Zonisamide (Zonisamide), CAP PO UD, (Reported) Scheduled PRN Hydralazine HCl (Hydralazine HCl), 1 TAB PO BIDPRN PRN for blood pressure, (Reported) Discharge Statement: "Patient was advised to return to the ER or call 911 if any headaches, dizziness, shortness of breath, chest pain, abdominal pain, bleeding, fevers, or worsening of medical condition. Patient was counseled about treatment plan, medications, possible side effects, patientverbalized understanding. All questions were answered to the best of my ability. This discharge took greater then 30 minutes in planning, reviewing documentation, counseling the patient, and discussing with other team members." ASSESSMENT ASSESSMENT Assessment This is a 64 yo female with known history of CHF, CKF, CVA, HLD, HTN, Seizures who presents with left sided chest pain radiating to neck, left upper back. Patient found to have 1. Chest pain ruled out OR 2. Hypertension 3. Chronic CHF 4. Chronic Kidney failure 5. hx of CVA 6. hx of Seizures SAIDA LOMBARDO MD Dec 08, 2024 13:57
--- NOTE | 2024-12-08 23:33 | DVHPN2 ---
Progress Note - Dictate Date Seen: Dec 08, 2024 Medical Necessity Reason Pt with a Central, PICC or Fol: No Subjective Patient was seen and evaluated in follow up. Patient is complaining of intermittent chest pain. Echocardiogram and stress test are ordered/pending. Telemetry reviewed. vital signs Vital Sign Date Time Temp Pulse Resp B/P (MAP) Pulse Ox O2 Delivery O2 Flow Rate FiO2 12/08/24 13:08 86 22 148/86 12/08/24 13:07 97.6 93 97.6 12/08/24 08:06 Room Air* 0 21 Total Intake and Output 12/07/24 12/07/24 12/08/24 15:00 23:00 07:00 Intake Total 1740 ml 600 ml Balance 1740 ml 600 ml medications Current Medications Medications Dose Ordered Sig/Ada Route Start Time Stop Time Status Last Admin Dose Admin Nitroglycerin 0.4 mg Q5MINP PRN SL 12/06/24 20:30 Morphine Sulfate 2 mg Q30M PRN IV 12/06/24 20:30 12/08/24 13:08 2 MG Ondansetron HCl 4 mg Q6HPRN PRN IV 12/06/24 20:30 12/08/24 13:07 4 MG Acetaminophen 650 mg Q6HPRN PRN PO 12/06/24 20:30 Hold Famotidine 20 mg BID PO 12/06/24 22:00 12/08/24 09:35 20 MG Acetaminophen/ Hydrocodone Bitart 1 tab Q6HPRN PRN PO 12/06/24 20:30 12/07/24 21:32 1 TAB Atorvastatin Calcium 40 mg HS PO 12/06/24 22:00 12/07/24 21:30 40 MG Aspirin 81 mg DAILY PO 12/07/24 10:00 12/08/24 09:34 81 MG Hydralazine HCl 10 mg Q6HPRN PRN IV 12/06/24 20:45 Levetiracetam 1,000 mg BID PO 12/07/24 15:00 12/08/24 09:34 1,000 MG Topiramate 50 mg BID PO 12/07/24 15:00 12/08/24 09:37 50 MG Carvedilol 3.125 mg Q12HR PO 12/07/24 22:00 12/08/24 09:35 3.125 MG Clopidogrel Bisulfate 75 mg DAILY PO 12/08/24 10:00 12/08/24 09:36 75 MG Furosemide 20 mg DAILY PO 12/08/24 10:00 12/08/24 09:36 20 MG Losartan Potassium 50 mg DAILY PO 12/07/24 22:00 12/08/24 09:34 50 MG objective GENERAL: Alert and oriented x 3. No acute distress. Obese. EYES: PERRL, EOMI. Anicteric. HENT: Moist mucous membranes. LUNGS: Clear to auscultation bilaterally. CARDIOVASCULAR: Regular rate and rhythm. ABDOMEN: Soft, nontender and nondistended. EXTREMITIES: No edema. NEUROLOGIC: No focal neurological deficits. SKIN: Warm, dry. laboratory and microbiology Laboratory Tests 12/08/24 06:20 12/06/24 14:40 Test 12/08/24 06:20 Range/Units Serum Glucose 119 H 74-106 mg/dL Problem List Unstable angina. Hypertension. Chronic CHF. CKD. History of CVA. History of Seizures. Assessment/Plan Continued all current supportive medical care. Echocardiogram. Stress test. Aspirin. IV Hydralazine for SBP >160. Nitro SL. Coreg, Losartan. Diuretics with Lasix. Morphine for pain management. Additional plan as per the hospital course. Plan discussed with: Patient CONSTANCE RALPH MD Dec 08, 2024 13:13
[2024-12-09] VITALS (8 sets, daily range): BP systolic 118–145; BP diastolic 61–74; PULSE 59–68; RESP 16–18; TEMP 97.7–98; O2SAT 93–97
--- NOTE | 2024-12-09 01:35 | DVHSR ---
APPROVED REPORT EXAM: Two-dimensional and M-mode echocardiogram with Doppler and color Doppler. Blood Pressure: 168/87 mmHg INDICATION Chest Pain RISK FACTORS Height: 5'8", Weight: 230 DIMENSIONS LVDd4.6 (3.8-5.7cm)LA (2D)4.0 (1.9-4.0cm)Aortic Root2.7 (2.0-3.7cm) LVDs2.8 (2.5-4.0cm)LA (MM) (1.9-4.0cm)Aortic Cusp Exc1.7 (1.5-2.0cm) EF (%) 69.0 (55-70%)Rt. Atrium3.3 (1.9-4.0cm)Asc. Aorta3.7 cm IVSd1.1 (0.7-1.1cm)RV (D)3.3 (1.8-2.4cm) PWd0.9 (0.7-1.1cm) Mitral Valve MitralMitral Stenosis E wave0.57m/sMV Mean GR.mmHg A wave0.87m/sMV Peak GR.mmHg E/A ratio0.72D MVAcm2 DECEL [id number] 1/2 Timems Aortic Valve Aortic ValveAortic Stenosis V11.37m/John Mean GR.6mmHg V21.63m/John Peak GR.11mmHg LVOT Diameter2.0 (1.8-2.4cm)Doppler AVA2.64cm2 AI P 1/2 Iqmo181.67ms Pulmonic Valve V21.05m/s Tricuspid Valve TR Velocity2.31m/s [id number] Other Information Quality : Technically LimitedRhythm : Technically limited study due to body habitus. Conclusion MILD LVH AND MILD LV DIASTOLIC DYSFUNCTION LV EF IS 65% AORTIC SCLEROSIS POSTERIOR MITRAL LEAFLET IS CALCIFIED NORMAL TV AND PV NO EFFUSION NORMAL RV FUNCTION
--- NOTE | 2024-12-09 13:47 | DVHPN2 ---
Subjective Patient is complaining of intermittent chest pain. Patient is scheduled for stress test as per Cardiology. 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 Medications Current Medications Medications Dose Ordered Sig/Ada Route Start Time Stop Time Status Last Admin Dose Admin Nitroglycerin 0.4 mg Q5MINP PRN SL 12/06/24 20:30 Morphine Sulfate 2 mg Q30M PRN IV 12/06/24 20:30 12/08/24 13:08 2 MG Ondansetron HCl 4 mg Q6HPRN PRN IV 12/06/24 20:30 12/08/24 13:07 4 MG Acetaminophen 650 mg Q6HPRN PRN PO 12/06/24 20:30 Hold Famotidine 20 mg BID PO 12/06/24 22:00 12/09/24 09:40 20 MG Acetaminophen/ Hydrocodone Bitart 1 tab Q6HPRN PRN PO 12/06/24 20:30 12/08/24 22:25 1 TAB Atorvastatin Calcium 40 mg HS PO 12/06/24 22:00 12/08/24 22:26 40 MG Aspirin 81 mg DAILY PO 12/07/24 10:00 12/09/24 09:40 81 MG Hydralazine HCl 10 mg Q6HPRN PRN IV 12/06/24 20:45 Levetiracetam 1,000 mg BID PO 12/07/24 15:00 12/09/24 09:40 1,000 MG Topiramate 50 mg BID PO 12/07/24 15:00 12/09/24 09:41 50 MG Carvedilol 3.125 mg Q12HR PO 12/07/24 22:00 12/09/24 09:41 3.125 MG Clopidogrel Bisulfate 75 mg DAILY PO 12/08/24 10:00 12/09/24 09:41 75 MG Furosemide 20 mg DAILY PO 12/08/24 10:00 12/09/24 09:40 20 MG Losartan Potassium 50 mg DAILY PO 12/07/24 22:00 12/09/24 09:39 50 MG Laboratory Results Laboratory Tests 12/06/24 14:40 12/08/24 06:20 Assessment/Plan Assessment/Plan 64-year-old female with a known history of congestive heart failure, previous history of CVA without any residual deficit, hypertension, dyslipidemia, seizure disorder presented to the hospital with a intermittent left-sided chest pain radiating to neck left upper back found to have 1. Chest pain rule out SD 2. Seizure disorder 3. Chronic congestive heart failure currently not in exacerbation 4. CKD 5. History of CVA without any residual deficit 6. Hypertension 7. Morbid obesity classII -continue current medications, 2D echo, cardiology consultation. Plan discussed with: Patient, Other (Patient's bedside ROULA Pelletier) My Orders Orders - SAIDA LOMBARDO MD Procedure Category Date Status Time Discharge DISCHARGE 12/08/24 Transmitted 13:55 * Customer Engagement Analyst CONS 12/08/24 Transmitted Consult * Cardiology Consult CONS 12/08/24 Transmitted 14:14 Date of Service: Dec 08, 2024 Billing Provider: SAIDA LOMBARDO MD Common Visit Codes: NOT BILLABLE SAIDA LOMBARDO MD Dec 09, 2024 13:47
--- NOTE | 2024-12-09 13:48 | DVHPN2 ---
Subjective Patient is complaining of intermittent chest pain. Patient is currently scheduled for Cardiolite stress test as per Cardiology on Wednesday. 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 Medications Current Medications Medications Dose Ordered Sig/Ada Route Start Time Stop Time Status Last Admin Dose Admin Nitroglycerin 0.4 mg Q5MINP PRN SL 12/06/24 20:30 Morphine Sulfate 2 mg Q30M PRN IV 12/06/24 20:30 12/08/24 13:08 2 MG Ondansetron HCl 4 mg Q6HPRN PRN IV 12/06/24 20:30 12/08/24 13:07 4 MG Acetaminophen 650 mg Q6HPRN PRN PO 12/06/24 20:30 Hold Famotidine 20 mg BID PO 12/06/24 22:00 12/09/24 09:40 20 MG Acetaminophen/ Hydrocodone Bitart 1 tab Q6HPRN PRN PO 12/06/24 20:30 12/08/24 22:25 1 TAB Atorvastatin Calcium 40 mg HS PO 12/06/24 22:00 12/08/24 22:26 40 MG Aspirin 81 mg DAILY PO 12/07/24 10:00 12/09/24 09:40 81 MG Hydralazine HCl 10 mg Q6HPRN PRN IV 12/06/24 20:45 Levetiracetam 1,000 mg BID PO 12/07/24 15:00 12/09/24 09:40 1,000 MG Topiramate 50 mg BID PO 12/07/24 15:00 12/09/24 09:41 50 MG Carvedilol 3.125 mg Q12HR PO 12/07/24 22:00 12/09/24 09:41 3.125 MG Clopidogrel Bisulfate 75 mg DAILY PO 12/08/24 10:00 12/09/24 09:41 75 MG Furosemide 20 mg DAILY PO 12/08/24 10:00 12/09/24 09:40 20 MG Losartan Potassium 50 mg DAILY PO 12/07/24 22:00 12/09/24 09:39 50 MG Laboratory Results Laboratory Tests 12/06/24 14:40 12/08/24 06:20 Assessment/Plan Assessment/Plan 64-year-old female with a known history of congestive heart failure, previous history of CVA without any residual deficit, hypertension, dyslipidemia, seizure disorder presented to the hospital with a intermittent left-sided chest pain radiating to neck left upper back found to have 1. Chest pain rule out NM 2. Seizure disorder 3. Chronic congestive heart failure currently not in exacerbation 4. CKD 5. History of CVA without any residual deficit 6. Hypertension 7. Morbid obesity classII -continue current medications, 2D echo, cardiology consultation. Plan discussed with: Patient, Other (Patient's RN Liyah.) My Orders Orders - SAIDA LOMBARDO MD Procedure Category Date Status Time Discharge DISCHARGE 12/08/24 Transmitted 13:55 * Fur Operator CONS 12/08/24 Transmitted Consult * Cardiology Consult CONS 12/08/24 Transmitted 14:14 Date of Service: Dec 09, 2024 Billing Provider: SAIDA LOMBARDO MD Common Visit Codes: NOT BILLABLE SAIDA LOMBARDO MD Dec 09, 2024 13:48
--- NOTE | 2024-12-09 23:57 | DVHPN2 ---
Progress Note - Dictate Date Seen: Dec 09, 2024 Medical Necessity Reason Pt with a Central, PICC or Fol: No Subjective Patient was seen and evaluated in follow up. Patient is complaining of intermittent chest pain. Echocardiogram showed an EF of 65%. Telemetry reviewed. vital signs Vital Sign Date Time Temp Pulse Resp B/P (MAP) Pulse Ox O2 Delivery O2 Flow Rate FiO2 12/09/24 09:41 68 120/74 12/09/24 08:34 97.8 17 97 97.8 12/09/24 08:00 Room Air* 0 21 Total Intake and Output 12/08/24 12/08/24 12/09/24 15:00 23:00 07:00 Intake Total 600 ml 640 ml Output Total 450 ml 400 ml Balance 150 ml 240 ml medications Current Medications Medications Dose Ordered Sig/Ada Route Start Time Stop Time Status Last Admin Dose Admin Nitroglycerin 0.4 mg Q5MINP PRN SL 12/06/24 20:30 Morphine Sulfate 2 mg Q30M PRN IV 12/06/24 20:30 12/08/24 13:08 2 MG Ondansetron HCl 4 mg Q6HPRN PRN IV 12/06/24 20:30 12/08/24 13:07 4 MG Acetaminophen 650 mg Q6HPRN PRN PO 12/06/24 20:30 Hold Famotidine 20 mg BID PO 12/06/24 22:00 12/09/24 09:40 20 MG Acetaminophen/ Hydrocodone Bitart 1 tab Q6HPRN PRN PO 12/06/24 20:30 12/08/24 22:25 1 TAB Atorvastatin Calcium 40 mg HS PO 12/06/24 22:00 12/08/24 22:26 40 MG Aspirin 81 mg DAILY PO 12/07/24 10:00 12/09/24 09:40 81 MG Hydralazine HCl 10 mg Q6HPRN PRN IV 12/06/24 20:45 Levetiracetam 1,000 mg BID PO 12/07/24 15:00 12/09/24 09:40 1,000 MG Topiramate 50 mg BID PO 12/07/24 15:00 12/09/24 09:41 50 MG Carvedilol 3.125 mg Q12HR PO 12/07/24 22:00 7/19/25 09:41 3.125 MG Clopidogrel Bisulfate 75 mg DAILY PO 12/08/24 10:00 12/09/24 09:41 75 MG Furosemide 20 mg DAILY PO 12/08/24 10:00 12/09/24 09:40 20 MG Losartan Potassium 50 mg DAILY PO 12/07/24 22:00 12/09/24 09:39 50 MG objective GENERAL: Alert and oriented x 3. No acute distress. Obese. EYES: PERRL, EOMI. Anicteric. HENT: Moist mucous membranes. LUNGS: Clear to auscultation bilaterally. CARDIOVASCULAR: Regular rate and rhythm. ABDOMEN: Soft, nontender and nondistended. EXTREMITIES: No edema. NEUROLOGIC: No focal neurological deficits. SKIN: Warm, dry. laboratory and microbiology Laboratory Tests 12/08/24 06:20 12/06/24 14:40 Test 12/08/24 06:20 Range/Units Serum Glucose 119 H 74-106 mg/dL Problem List Unstable angina. Hypertension. Chronic CHF. CKD. History of CVA. History of Seizures. Assessment/Plan Continued all current supportive medical care. Stress test. Aspirin. IV Hydralazine for SBP >160. Nitro SL. Coreg, Losartan. Diuretics with Lasix. Tylenol for pain management. Additional plan as per the hospital course. Plan discussed with: Patient CONSTANCE RALPH MD Dec 09, 2024 13:34
[2024-12-10] VITALS (18 sets, daily range): BP systolic 103–164; BP diastolic 56–84; PULSE 52–67; RESP 12–19; TEMP 97.4–98.3; O2SAT 92–97
--- NOTE | 2024-12-10 12:00 | DVHPN2 ---
Progress Note - Dictate Date Seen: Dec 10, 2024 Medical Necessity Reason Pt with a Central, PICC or Fol: No Subjective Complains of back pain. Patient is scheduled for Cardiolite stress test tomorrow by Cardiology. Patient no complaints of chest pain or shortness for breath. Other review of systems reviewed normal vital signs Vital Sign Date Time Temp Pulse Resp B/P (MAP) Pulse Ox O2 Delivery O2 Flow Rate FiO2 12/10/24 09:22 103/56 12/10/24 09:22 66 12/10/24 09:00 97.4 19 93 97.4 12/10/24 08:15 Room Air* 0 21 Total Intake and Output 12/09/24 12/09/24 12/10/24 15:00 23:00 07:00 Intake Total 940 ml 200 ml Output Total 1850 ml 1500 ml Balance -910 ml -1300 ml medications Current Medications Medications Dose Ordered Sig/Ada Route Start Time Stop Time Status Last Admin Dose Admin Nitroglycerin 0.4 mg Q5MINP PRN SL 12/06/24 20:30 Morphine Sulfate 2 mg Q30M PRN IV 12/06/24 20:30 12/08/24 13:08 2 MG Ondansetron HCl 4 mg Q6HPRN PRN IV 12/06/24 20:30 12/08/24 13:07 4 MG Acetaminophen 650 mg Q6HPRN PRN PO 12/06/24 20:30 Hold Famotidine 20 mg BID PO 12/06/24 22:00 12/10/24 09:22 20 MG Acetaminophen/ Hydrocodone Bitart 1 tab Q6HPRN PRN PO 12/06/24 20:30 12/10/24 05:59 1 TAB Atorvastatin Calcium 40 mg HS PO 12/06/24 22:00 12/09/24 21:25 40 MG Aspirin 81 mg DAILY PO 12/07/24 10:00 12/10/24 09:21 81 MG Hydralazine HCl 10 mg Q6HPRN PRN IV 12/06/24 20:45 Levetiracetam 1,000 mg BID PO 12/07/24 15:00 12/10/24 09:22 1,000 MG Topiramate 50 mg BID PO 12/07/24 15:00 12/10/24 09:23 50 MG Carvedilol 3.125 mg Q12HR PO 12/07/24 22:00 12/10/24 09:22 3.125 MG Clopidogrel Bisulfate 75 mg DAILY PO 12/08/24 10:00 12/10/24 09:23 75 MG Furosemide 20 mg DAILY PO 12/08/24 10:00 12/10/24 09:22 20 MG Losartan Potassium 50 mg DAILY PO 12/07/24 22:00 12/09/24 09:39 50 MG objective Comfortable in bed without any acute cardiopulmonary distress. HEENT neck supple no JVD. Heart regular rate and rhythm S1-S2. Lungs fair air movement without rales wheezes. Abdomen obese soft nontender positive bowel sounds. Extremities no edema positive pulses laboratory and microbiology Laboratory Tests 12/08/24 06:20 12/06/24 14:40 Test 12/08/24 06:20 Range/Units Serum Glucose 119 H 74-106 mg/dL Assessment/Plan We will check a UA and urinalysis. Use Welsh for back pain. Encouraged out of bed ambulate as much as possible. Proceed with a stress test tomorrow as planned. Otherwise continue rest of supportive care and treatment. Follow clinical management per clinical course. Discussed with the patient at bedside regarding care plan. Problems(with codes): (1) Acute chest pain (2) Acute renal injury Plan discussed with: Patient TAYLOR TONEY MD Dec 10, 2024 12:00
[2024-12-10 19:26] LABS: Hematocrit 44.6 % (36.0-46.0); Hemoglobin 15.1 g/dL (12.2-16.2); Mean Corpuscular Hemoglobin 34.2 pg (28.0-32.0); Mean Corpuscular Volume 100.9 fL (80.0-100.0); Nucleated Red Blood Cells % 0.1 %
[2024-12-10 19:41] LABS: INR 1.02 (0.9-1.15); Partial Thromboplastin Time 26.9 SEC (24.5-34.5); Prothrombin Time 10.8 sec (9.3-11.8)
--- NOTE | 2024-12-10 20:07 | DVHINCON2 ---
Date of service: Dec 10, 2024 Referring Physician Cheo Miner Neuro Note # Demographics Consult Type: Acute Stroke Level 1 (0-4.5 hrs) Patient Location: Inpatient First Name: Corazon Last Name: Austen Date of : 1960 Age: 64 Gender: Female Facility: [facility] Time of Initial Page (): 12/10/2024 19:01 Time of Return Call (): 12/10/2024 19:03 # HPI History: 64 year old female with PMH of CAD, HTN, HLD, CHF, prior stroke, that I was requested to evaluate for acute stroke. The patient is inpatient for unstable angina. Fifteen minutes prior to my consult she developed acute onset left sided weakness. # Scores Time of exam and NIHSS (): 12/10/2024 19:08 Level of Consciousness 1a: [0] = Alert; keenly responsive LOC Questions 1b: [0] = Answers both questions correctly LOC Commands 1c: [0] = Performs both tasks correctly Best Gaze 2: [0] = Normal Visual 3: [0] = No visual loss Facial Palsy 4: [1] = Minor paralysis Motor Arm Left 5a: [2] = Some effort against gravity Motor Arm Right 5b: [0] = No drift Motor Leg Left 6a: [2] = Some effort against gravity Motor Leg Right 6b: [0] = No drift Limb Ataxia 7: [0] = Absent Sensory 8: [0] = Normal Best Language 9: [0] = No aphasia Dysarthria 10: [1] = Adjf-lz-durvveec dysarthria Extinction and Inattention 11: [0] = No abnormality NIHSS Total: 6 # ROS Neurologic: - see HPI # PMH-FH-SH Past Medical History: HTN, HLD, CAD, CHF, prior stroke # Data Time Head CT personally read by me (): 12/10/2024 20:[address]: - no bleed # Assessment Impression: - Ischemic Stroke (Acute) # Plan Thrombolytic/Intervention: IV Thrombolysis Thrombolytic Dosing: IV tenecteplase 0.25 mg/kg, max dose 25 mg; single bolus IVP over 5 seconds Time IV Thrombolytic Recommended (): 12/10/2024 20:05 Target Blood Pressure: - SBP < 180 - DBP < 105 Labs: - CBC - comprehensive metabolic panel - ESR - hemoglobin A1c - lipid panel Imaging: (urgency: routine): - MRI Brain without contrast Imaging / diagnostics: (urgency: outpatient): TTE Thrombolytic Administration Recommendations: - I reviewed the risks/benefits/alternatives of IV thrombolytic therapy with the patient. They understand there is potential of life threatening hemorrhage from IV thrombolysis. I stated that I believe benefits outweighs risk. They wish to proceed with IV thrombolytic therapy. - BP goal< 180/105 for 24hrs post Thrombolytic administration - Use Labetalol 10-20mg IV prn or Nicardipine gtt to maintain BP parameters - No antiplatelets or anticoagulants for next 24 hrs unless indicated for emergent IA procedure or other life threatening situation - ICU admission - Call back if there is any decline in neurological condition Other: - If patient has any neurological deterioration please call me back immediately Additional Recommendations: SUMMARY: == proceed with TNK == admit to ICU == stroke workup: MRI Brain without contrast, TTE Disposition: admit # Logistics Attestation of consult completion: The patient is located at: [facility]. Facility staff participated in the visit. I performed this telemedici ne visit from my offsite office utilizing interactive 2 way audio and visual telecommunication technology. Consent: Verbal consent was obtained from the patient and/or family for this encounter. Total time spent in telemedicine encounter: I spent 20 minutes reviewing clinical data and/or imaging, obtaining history, examining the patient, communicating with the onsite care team, and in preparation of this report. Critical Care time: 15 minutes of this encounter were critical care time. Due to a high probability of clinically significant, life-threatening neurologic deterioration, the patient required my highest level of preparedness to intervene emergently. I spent this critical care time managing the patient in conjunction with on-site providers who requested my consultation. In addition to the above, this critical care time included recommendation and review of studies, including imaging; arranging an urgent treatment and management plan with on-site providers; evaluation of patient's response to treatment; and documentation. This critical care time was performed to assess and manage the high probability of imminent, life-threatening deterioration that could result in neurologic catastrophe. # Demographics First Name: Corazon Last Name: [facility] Facility: [facility] Family History: Colon cancer G8 MOTHER, Onset:50's - 60 FH: arrhythmogenic right ventricular cardiomyopathy G8 SISTER, Onset:Unknown FH: colon cancer FH: sudden cardiac (SCD) G8 FATHER, Onset:Unknown Hypertension G8 MOTHER, Onset:Unknown Allergies: Coded Allergies: Valproic Acid (Verified Allergy, Unknown, 06/09/23) Home Meds Reported Medications Potassium Chloride (Potassium Chloride ER) 10 Meq Tab, 1 TAB PO DAILY for 90 Days, #90 01/17/24 Losartan Potassium (Losartan Potassium) 50 Mg Tab, 1 TAB PO DAILY for 90 Days, #90 01/17/24 Carvedilol (COREG) 3.125 Mg Tab, 1 TAB PO BID for 30 Days, #60 11/26/23 Clopidogrel Bisulfate (Plavix) 75 Mg Tab, 1 TAB PO DAILY, TAB 1 Refill 11/26/23 Albuterol Sulfate (Proair Digihaler) 108 Mcg/Act Aer, 90 MCG IN Q6HPRN, AER 06/10/23 Aspirin (Aspir-81) 81 Mg Tab, 1 TAB PO DAILY, #30 TAB 5 Refills 06/10/23 Zonisamide (Zonisamide) 100 Mg Cap, CAP PO UD for 30 Days, #150 Take 2 capsules by mouth in the morning, and 3 capsules by mouth in the evening. 06/10/23 Levetiracetam (Levetiracetam) 1,000 Mg Tab, 1 TAB PO BID 06/10/23 Topiramate (Topiramate) 50 Mg Tab, 1 TAB PO BID 06/10/23 Furosemide (Furosemide) 20 Mg Tab, 1 TAB PO BID 06/10/23 Atorvastatin Calcium (ATORVASTATIN CALCIUM) 40 Mg Tab, 1 TAB PO DAILY 06/10/23 Hydralazine HCl (Hydralazine HCl) 25 Mg Tab, 1 TAB PO BIDPRN PRN for blood pressure 06/10/23 Vital Signs Vital Signs Date Time Temp Pulse Resp B/P (MAP) Pulse Ox O2 Delivery O2 Flow Rate FiO2 12/10/24 19:54 97.9 66 16 140/78 (98) 94 97.9 12/10/24 08:15 Room Air* 0 21 Labs/Diagnostic Data Labs Test 12/10/24 19:15 12/07/24 13:50 12/07/24 06:15 12/06/24 14:40 Range/Units White Blood Count 6.8 4.4-10.8 10^3/uL Red Blood Count 4.42 4.0-5.20 10^6/uL Hemoglobin 15.1 12.2-16.2 g/dL Hematocrit 44.6 36.0-46.0 % Mean Corpuscular Volume 100.9 H 80.0-100.0 fL Mean Corpuscular Hemoglobin 34.2 H 28.0-32.0 pg Mean Corpuscular Hemoglobin Concent 33.9 32.0-36.0 g/dL Red Cell Distribution Width 14.8 H 11.8-14.3 % Platelet Count 200 140-450 10^3/uL Mean Platelet Volume 9.6 6.9-10.8 fL Neutrophils (%) (Auto) 55.9 37.0-80.0 % Lymphocytes (%) (Auto) 31.3 10.0-50.0 % Monocytes (%) (Auto) 8.2 0.0-12.0 % Eosinophils (%) (Auto) 3.3 0.0-7.0 % Basophils (%) (Auto) 1.3 0.0-2.0 % Neutrophils # (Auto) 3.8 1.6-8.6 10 ^3/uL Lymphocytes # (Auto) 2.1 0.4-5.4 10 ^3/uL Monocytes # (Auto) 0.6 0-1.3 10 ^3/uL Eosinophils # (Auto) 0.2 0-0.8 10 ^3/uL Basophils # (Auto) 0.1 0-0.2 10 ^3/uL Nucleated Red Blood Cells 0.1 % Prothrombin Time 10.8 9.3-11.8 sec Prothrombin Time INR 1.02 0.9-1.15 Activated Partial Thromboplast Time 26.9 24.5-34.5 SEC Troponin I High Sensitivity 7 </=34 ng/L Triglycerides Level 75 < 150 mg/dL Cholesterol Level 192 < 200 mg/dL LDL Cholesterol 119 H < 100 mg/dL HDL Cholesterol 68 H 40-59 mg/dL B-Type Natriuretic Peptide 143.06 0-100 pg/mL Plan discussed with: Patient CHAITANYA HEART MD Dec 10, 2024 20:07
--- NOTE | 2024-12-10 21:07 | DVH ---
EXAM: CT STROKE CTH INDICATION: AMS TECHNIQUE: CT of the head without intravenous contrast. Radiation Dose : 1. Head: CT Dose: CTDI volume is 56.63 mGy. Dose-length product is 907.8 mGy*cm The dose indicators for CT are the volume Computed Tomography (CT) Dose Index (CTDIvol) and the Dose Length Product (DLP), and are measured in units of mGy and mGy-cm, respectively. These indicators are not patient dose, but values generated from the CT scanner acquisition factors. The report includes radiation exposure data for exposures received during this examination. COMPARISON: CT HEAD WITHOUT CONTRAST on DOS: 01/16/24 FINDINGS: There is no evidence of acute intracranial hemorrhage, extra-axial collection, mass effect, midline s hift, herniation or hydrocephalus. The ventricles, sulci and cisterns are age appropriate. The estrella-white differentiation is intact. The visualized paranasal sinuses and mastoid air cells are clear. The surrounding soft tissues and osseous structures are unremarkable. IMPRESSION: 1. No acute intracranial abnormality. Radiation optimization: All CT scans at this facility use at least one of these dose optimization bo hniques: automated exposure control mA and/or kV adjustment per patient size (includes targeted exam s where dose is matched to clinical indication) or iterative reconstruction.
[2024-12-10 21:14] LABS: Anion Gap 7 (5-15)
[2024-12-10 21:20] LABS: Triglycerides 89 mg/dL (< 150)
[2024-12-10 21:21] LABS: Cholesterol 185 mg/dL (< 200)
[2024-12-10 21:49] LABS: Alkaline Phosphatase 164 U/L (46-116); Bilirubin, Total 0.8 mg/dL (0.2-1.0); Calcium 9.8 mg/dL (8.7-10.4); Carbon Dioxide 25 mmol/L (20-31); Chloride 107 mmol/L (98-107); Glucose 132 mg/dL (74-106); HDL Cholesterol 62 mg/dL (40-59); Potassium 3.9 mmol/L (3.5-5.1); Sodium 139 mmol/L (136-145); Total Protein 6.8 g/dL (5.7-8.2)
[2024-12-10] MEDS: TENECTEPLASE 50mg/10ml KIT IV ONE (21:50)
[2024-12-10 21:59] LABS: Alanine Aminotransferase 100 U/L (7-40); Albumin 4.0 g/dL (3.2-4.8); BUN/Creatinine Ratio 13.8 (10.0-20.0); Blood Urea Nitrogen 18 mg/dL (9-23)
--- NOTE | 2024-12-10 22:40 | DVHPN2 ---
Progress Note - Dictate Date Seen: Dec 10, 2024 Medical Necessity Reason Pt with a Central, PICC or Fol: No Subjective Patient was seen and evaluated in follow up. Patient is complaining of back pain. Patient is scheduled for Cardiolite stress test tomorrow 12/11. Telemetry reviewed. vital signs Vital Sign Date Time Temp Pulse Resp B/P (MAP) Pulse Ox O2 Delivery O2 Flow Rate FiO2 12/10/24 12:51 97.7 64 18 127/71 (89) 93 97.7 12/10/24 08:15 Room Air* 0 21 Total Intake and Output 12/09/24 12/09/24 12/10/24 15:00 23:00 07:00 Intake Total 940 ml 200 ml Output Total 1850 ml 1500 ml Balance -910 ml -1300 ml medications Current Medications Medications Dose Ordered Sig/Ada Route Start Time Stop Time Status Last Admin Dose Admin Nitroglycerin 0.4 mg Q5MINP PRN SL 12/06/24 20:30 Morphine Sulfate 2 mg Q30M PRN IV 12/06/24 20:30 12/08/24 13:08 2 MG Ondansetron HCl 4 mg Q6HPRN PRN IV 12/06/24 20:30 12/08/24 13:07 4 MG Acetaminophen 650 mg Q6HPRN PRN PO 12/06/24 20:30 Hold Famotidine 20 mg BID PO 12/06/24 22:00 12/10/24 09:22 20 MG Acetaminophen/ Hydrocodone Bitart 1 tab Q6HPRN PRN PO 12/06/24 20:30 12/10/24 05:59 1 TAB Atorvastatin Calcium 40 mg HS PO 12/06/24 22:00 12/09/24 21:25 40 MG Aspirin 81 mg DAILY PO 12/07/24 10:00 12/10/24 09:21 81 MG Hydralazine HCl 10 mg Q6HPRN PRN IV 12/06/24 20:45 Levetiracetam 1,000 mg BID PO 12/07/24 15:00 12/10/24 09:22 1,000 MG Topiramate 50 mg BID PO 12/07/24 15:00 12/10/24 09:23 50 MG Carvedilol 3.125 mg Q12HR PO 12/07/24 22:00 12/10/24 09:22 3.125 MG Clopidogrel Bisulfate 75 mg DAILY PO 12/08/24 10:00 12/10/24 09:23 75 MG Furosemide 20 mg DAILY PO 12/08/24 10:00 12/10/24 09:22 20 MG Losartan Potassium 50 mg DAILY PO 12/07/24 22:00 12/09/24 09:39 50 MG objective GENERAL: Alert and oriented x 3. No acute distress. Obese. EYES: PERRL, EOMI. Anicteric. HENT: Moist mucous membranes. LUNGS: Clear to auscultation bilaterally. CARDIOVASCULAR: Regular rate and rhythm. ABDOMEN: Soft, nontender and nondistended. EXTREMITIES: No edema. NEUROLOGIC: No focal neurological deficits. SKIN: Warm, dry. laboratory and microbiology Laboratory Tests 12/08/24 06:20 12/06/24 14:40 Test 12/08/24 06:20 Range/Units Serum Glucose 119 H 74-106 mg/dL Problem List Unstable angina. Hypertension. Chronic CHF. CKD. History of CVA. History of Seizures. Assessment/Plan Continued all current supportive medical care. Stress test. Aspirin. IV Hydralazine for SBP >160. Nitro SL. Coreg. Diuretics with Lasix. [place] for pain management. Additional plan as per the hospital course. Plan discussed with: Patient CONSTANCE RALPH MD Dec 10, 2024 14:25
--- NOTE | 2024-12-10 23:16 | DVHINCON2 ---
Date of service: Dec 10, [address] Brunson Reason for Consultation Acute stroke syndrome, TNK candidate History of Present Illness Choice patient, I am consulting Dr. Naya Guerra 12/06/24 HPI Comments 64y F who presents to the ED via EMS for chief complaint of chest pain. Pt states she has been having chest pain since yesterday approx 1600. Pt states the pain came on suddenly, L side of chest, with pain radiating to the L side of neck and upper back, with no associated exacerbating or relieving factors. Pt states she started to have a headache and states she took 1x of her nitro. Pt states she felt better and went to bed later that night. Pt states she was tossing and turning all night due to her chest pain intermittently coming on and off. Pt states she eventually was able to fall asleep. Pt states she woke up this AM with shortness of breath and chest pain and due to persistence of her symptoms, pt called EMS. EMS states pt had vitals checked and everything but her BP was normal with noted BP around 220/110. Pt had IV established and was given 0.8 nitro and 324 ASA oral intake. Pt states her pain was still 9/10 upon arrival to the ED. Pt in the ED, otherwise has noted BP of 170/80 but otherwise stable vitals including 02 sat of 96% on room air, temp of 97.8 F and rr 19 with heart rate of 92. Pt has noted history of HTN. Pt otherwise denies any other symptoms at this time. Family History: Colon cancer G8 MOTHER, Onset:50's - 60 FH: arrhythmogenic right ventricular cardiomyopathy G8 SISTER, Onset:Unknown FH: colon cancer FH: sudden cardiac (SCD) G8 FATHER, Onset:Unknown Hypertension G8 MOTHER, Onset:Unknown Allergies: Coded Allergies: Valproic Acid (Verified Allergy, Unknown, 06/09/23) Home Meds Reported Medications Potassium Chloride (Potassium Chloride ER) 10 Meq Tab, 1 TAB PO DAILY for 90 Days, #90 01/17/24 Losartan Potassium (Losartan Potassium) 50 Mg Tab, 1 TAB PO DAILY for 90 Days, #90 01/17/24 Carvedilol (COREG) 3.125 Mg Tab, 1 TAB PO BID for 30 Days, #60 11/26/23 Clopidogrel Bisulfate (Plavix) 75 Mg Tab, 1 TAB PO DAILY, TAB 1 Refill 11/26/23 Albuterol Sulfate (Proair Digihaler) 108 Mcg/Act Aer, 90 MCG IN Q6HPRN, AER 06/10/23 Aspirin (Aspir-81) 81 Mg Tab, 1 TAB PO DAILY, #30 TAB 5 Refills 06/10/23 Zonisamide (Zonisamide) 100 Mg Cap, CAP PO UD for 30 Days, #150 Take 2 capsules by mouth in the morning, and 3 capsules by mouth in the evening. 06/10/23 Levetiracetam (Levetiracetam) 1,000 Mg Tab, 1 TAB PO BID 06/10/23 Topiramate (Topiramate) 50 Mg Tab, 1 TAB PO BID 06/10/23 Furosemide (Furosemide) 20 Mg Tab, 1 TAB PO BID 06/10/23 Atorvastatin Calcium (ATORVASTATIN CALCIUM) 40 Mg Tab, 1 TAB PO DAILY 06/10/23 Hydralazine HCl (Hydralazine HCl) 25 Mg Tab, 1 TAB PO BIDPRN PRN for blood pressure 06/10/23 Current Medications Current Medications Medications (Trade) Dose Ordered Sig/Ada Route PRN Reason Start Time Stop Time Status Last Admin Nicardipine/ Sodium Chloride 200 ml @ 50 mls/hr Q4H IV 12/10/24 20:45 Vital Signs Vital Signs Date Time Temp Pulse Resp B/P (MAP) Pulse Ox O2 Delivery O2 Flow Rate FiO2 12/10/24 21:00 97.9 67 16 140/78 (98) 92 97.9 12/10/24 08:15 Room Air* 0 21 Labs/Diagnostic Data Labs Test 12/10/24 20:49 12/10/24 19:15 12/07/24 13:50 12/06/24 14:40 Range/Units Sodium Level 139 136-145 mmol/L Potassium Level 3.9 3.5-5.1 mmol/L Chloride Level 107 98-107 mmol/L Carbon Dioxide Level 25 20-31 mmol/L Anion Gap 7 5-15 Blood Urea Nitrogen 18 9-23 mg/dL Creatinine 1.30 H 0.550-1.02 mg/dL Glomerular Filtration Rate Calc 46 >90 mL/min BUN/Creatinine Ratio 13.8 10.0-20.0 Serum Glucose 132 H 74-106 mg/dL Calcium Level 9.8 8.7-10.4 mg/dL Total Bilirubin 0.8 0.2-1.0 mg/dL Aspartate Amino Transferase (AST) 112 H 13-40 U/L Alanine Aminotransferase (ALT) 100 H 7-40 U/L Alkaline Phosphatase 164 H 46-116 U/L Total Protein 6.8 5.7-8.2 g/dL Albumin 4.0 3.2-4.8 g/dL Triglycerides Level 89 < 150 mg/dL Cholesterol Level 185 < 200 mg/dL LDL Cholesterol 109 H < 100 mg/dL HDL Cholesterol 62 H 40-59 mg/dL White Blood Count 6.8 4.4-10.8 10^3/uL Red Blood Count 4.42 4.0-5.20 10^6/uL Hemoglobin 15.1 12.2-16.2 g/dL Hematocrit 44.6 36.0-46.0 % Mean Corpuscular Volume 100.9 H 80.0-100.0 fL Mean Corpuscular Hemoglobin 34.2 H 28.0-32.0 pg Mean Corpuscular Hemoglobin Concent 33.9 32.0-36.0 g/dL Red Cell Distribution Width 14.8 H 11.8-14.3 % Platelet Count 200 140-450 10^3/uL Mean Platelet Volume 9.6 6.9-10.8 fL Neutrophils (%) (Auto) 55.9 37.0-80.0 % Lymphocytes (%) (Auto) 31.3 10.0-50.0 % Monocytes (%) (Auto) 8.2 0.0-12.0 % Eosinophils (%) (Auto) 3.3 0.0-7.0 % Basophils (%) (Auto) 1.3 0.0-2.0 % Neutrophils # (Auto) 3.8 1.6-8.6 10 ^3/uL Lymphocytes # (Auto) 2.1 0.4-5.4 10 ^3/uL Monocytes # (Auto) 0.6 0-1.3 10 ^3/uL Eosinophils # (Auto) 0.2 0-0.8 10 ^3/uL Basophils # (Auto) 0.1 0-0.2 10 ^3/uL Nucleated Red Blood Cells 0.1 % Erythrocyte Sedimentation Rate 23 H 0-20 mm/hr Prothrombin Time 10.8 9.3-11.8 sec Prothrombin Time INR 1.02 0.9-1.15 Activated Partial Thromboplast Time 26.9 24.5-34.5 SEC Hemoglobin A1c 5.6 <5.7 % A1C Troponin I High Sensitivity 7 </=34 ng/L B-Type Natriuretic Peptide 143.06 0-100 pg/mL Plan discussed with: Other AGNES LOW MD Dec 10, 2024 23:16
[2024-12-11] VITALS (92 sets, daily range): BP systolic 84–189; BP diastolic 30–85; PULSE 60–93; RESP 10–20; TEMP 97.8–99.1; O2SAT 91–99
[2024-12-11] MEDS: hydrALAZINE HCL 20 MG/ML VL IV PRN ×2 (00:33→05:01)
[2024-12-11] MEDS: MORPHINE SULFATE INJ 2 MG/ml SYRG IV PRN (06:05)
[2024-12-11] MEDS: NICARDIPINE HCL IN SODIUM CHLO 200 ML IV SCH (07:00)
[2024-12-11 07:08] LABS: Hematocrit 46.6 % (36.0-46.0); Hemoglobin 15.7 g/dL (12.2-16.2); Mean Corpuscular Hemoglobin 34.4 pg (28.0-32.0); Mean Corpuscular Volume 102.1 fL (80.0-100.0); Nucleated Red Blood Cells % 0.1 %
[2024-12-11 07:16] LABS: INR 1.06 (0.9-1.15); Partial Thromboplastin Time 29.1 SEC (24.5-34.5); Prothrombin Time 11.2 sec (9.3-11.8)
[2024-12-11 07:22] LABS: Anion Gap 12 (5-15); Carbon Dioxide 22 mmol/L (20-31); Chloride 106 mmol/L (98-107); Potassium 3.6 mmol/L (3.5-5.1); Sodium 140 mmol/L (136-145)
[2024-12-11 07:24] LABS: Calcium 10.4 mg/dL (8.7-10.4)
[2024-12-11 07:28] LABS: BUN/Creatinine Ratio 13.8 (10.0-20.0); Blood Urea Nitrogen 15 mg/dL (9-23); Glucose 96 mg/dL (74-106)
--- NOTE | 2024-12-11 09:48 | DVH ---
LEFT Upper Extremity Venous Duplex Clinical History: BRUSING Comparison: None Findings: Duplex Doppler evaluation of the venous system of the LEFT lower neck and upper extremity including c olor Doppler and spectral/pulsed waveform analysis was performed. The internal jugular vein demonstrates appropriate compressibility and waveform variability. The subclavian vein is patent on color Doppler evaluation without intraluminal thrombus and demonstra haroon waveform variability. The visualized portion of the brachiocephalic vein is patent on color Doppler evaluation without intr aluminal thrombus and demonstrates waveform variability. The axillary vein demonstrates appropriate compressibility and waveform variability. The brachial veins demonstrate appropriate compressibility and patency on Doppler evaluation. The basilic vein demonstrates appropriate compressibility and patency on Doppler evaluation. The cephalic vein demonstrates appropriate compressibility and patency on Doppler evaluation. Impression: No venous thrombus identified in the LEFT upper extremity vessels evaluated above. If clinical concern/symptoms persist or worsen, short-interval follow-up study is suggested.
[2024-12-11] MEDS ORDERED: TENECTEPLASE 50mg/10ml KIT IV ONE (10:40)
[2024-12-11] MEDS: MAGNESIUM CITRATE SOLUTION 300 ML BTL PO ONE (12:00)
[2024-12-11] MEDS ORDERED: IOHEXOL 350 MG/ML 100ML IJ ONE (12:19)
--- NOTE | 2024-12-11 12:45 | DVHPN2 ---
Progress Note - Dictate Date Seen: Dec 11, 2024 Medical Necessity Reason Pt with a Central, PICC or Fol: No Subjective Comfortable in bed. Complains of constipation. Otherwise pending CT angiogram of the head and neck and MRI of the brain. Overnight events noted and she received TNKase treatment for possible acute stroke. vital signs Vital Sign Date Time Temp Pulse Resp B/P (MAP) Pulse Ox O2 Delivery O2 Flow Rate FiO2 12/11/24 12:06 71 20 139/64 12/11/24 10:00 94 Room Air* 0 12/11/24 08:00 99.1 99.1 Total Intake and Output 12/10/24 12/10/24 12/11/24 15:00 23:00 07:00 Intake Total 840 ml Output Total 700 ml Balance 140 ml medications Current Medications Medications Dose Ordered Sig/Ada Route Start Time Stop Time Status Last Admin Dose Admin Nitroglycerin 0.4 mg Q5MINP PRN SL 12/06/24 20:30 Morphine Sulfate 2 mg Q30M PRN IV 12/06/24 20:30 12/08/24 13:08 2 MG Ondansetron HCl 4 mg Q6HPRN PRN IV 12/06/24 20:30 12/11/24 05:00 4 MG Acetaminophen 650 mg Q6HPRN PRN PO 12/06/24 20:30 Hold Famotidine 20 mg BID PO 12/06/24 22:00 12/11/24 10:26 20 MG Acetaminophen/ Hydrocodone Bitart 1 tab Q6HPRN PRN PO 12/06/24 20:30 12/10/24 05:59 1 TAB Atorvastatin Calcium 40 mg HS PO 12/06/24 22:00 12/09/24 21:25 40 MG Levetiracetam 1,000 mg BID PO 12/07/24 15:00 12/11/24 10:26 1,000 MG Topiramate 50 mg BID PO 12/07/24 15:00 12/11/24 12:06 50 MG Carvedilol 3.125 mg Q12HR PO 12/07/24 22:00 12/11/24 10:25 3.125 MG Furosemide 20 mg DAILY PO 12/08/24 10:00 12/11/24 10:26 20 MG Losartan Potassium 50 mg DAILY PO 12/07/24 22:00 12/11/24 10:25 50 MG Nicardipine/ Sodium Chloride 200 ml @ 50 mls/hr Q4H IV 12/10/24 20:45 Hydralazine HCl 10 mg Q4HPRN PRN IV 12/11/24 01:30 12/11/24 05:01 10 MG Morphine Sulfate 2 mg Q6HPRN PRN IV 12/11/24 06:00 12/11/24 12:06 2 MG Sennosides 8.6 mg HS PO 12/11/24 22:00 Sodium Chloride 1,000 ml @ 60 mls/hr [id number] IV 12/11/24 12:00 objective Comfortable in bed without any acute cardiopulmonary distress. HEENT neck supple no JVD. Normal speech. Heart regular rate and rhythm S1-S2. Lungs fair air movement without rales wheezes. Abdomen obese soft nontender positive bowel sounds. Extremities no edema positive pulses. Neurologically may be slight weakness in the left upper extremity compared to the right upper extremity but and no other focal deficits noted. Normal speech. No facial droop noted. laboratory and microbiology Laboratory Tests 12/11/24 05:20 Test 12/11/24 05:20 Range/Units Serum Glucose 96 74-106 mg/dL Assessment/Plan Apparently patient had a left arm weakness and slurry necessary her speech overnight therefore roof code stroke was called and tele neurology evaluated the patient. It was decided that the patient would benefit from anticoagulation therefore she received TNKase treatment. Subsequently she is upgraded to step- down unit. Overnight she remained stable. Currently her left arm weakness has improved. No slurred speech noted. Pending MRI of the brain as well as CT angiogram of the head and neck today. Apparently is constipated for about five days. Given patient received TNKase treatment we will hold all anticoagulation for 48 hours. DC aspirin and Plavix and Lovenox. Her Neurology consultation to further evaluate. Otherwise continue rest of supportive care and treatment. Her Cardiolite stress test which is scheduled for today has been canceled due to her stroke workup. Continue rest of supportive care and treatment. Further clinical management per clinical course. Discussed with the patient's nurse regarding care plan. Problems(with codes): (1) CVA (cerebral vascular accident) (2) Constipation (3) Acute chest pain Plan discussed with: Patient, Other TAYLOR TONEY MD Dec 11, 2024 12:44
--- NOTE | 2024-12-11 13:10 | DVH ---
CLINICAL INFORMATION: 64 years old, Female; stroke. TECHNIQUE: Noncontrast axial CT images of the head were obtained. Axial CTA images of the head and ne ck were obtained after the uneventful administration of 100 mL Omnipaque 350 IV contrast. Coronal and sagittal reformatted images and MIP images were obtained, reviewed, and stored. Measurements of nava tid stenosis are made per NASCET criteria. All CT scans at this medical facility are performed using dose modulation techniques as appropriate to a performed exam including the following: Automated expo sure control was utilized; adjustment of the MA and/or KV according to patient size; and use of itera tive reconstruction technique. CTDIvol = 61.71, 20.7, 22.44 mGy DLP = 1811.14 mGy-cm COMPARISON: Noncontrast CT head dated 12/10/2024. FINDINGS: NONCONTRAST CT HEAD: No acute intracranial hemorrhage. No mass effect or midline shift. Ventricles, s ulci, and basal cisterns are within normal limits in size. Mild mucosal thickening of the paranasal s inuses. Mastoid air cells are clear. Mild mucosal thickening of the paranasal sinuses. CTA HEAD: Posterior cerebral arteries, basilar artery, and intracranial segments of the distal verteb ral arteries are normal in caliber and course with no evidence of aneurysm, large vessel occlusion, s ignificant stenosis, or vascular malformation. The anterior and middle cerebral arteries and intracra nial segments of the distal internal carotid arteries are normal in caliber and course with no eviden ce of aneurysm, large vessel occlusion, significant stenosis, or vascular malformation. CTA NECK: Normal configuration of the aortic arch with patent origins of the brachiocephalic artery, left common carotid artery, and left subclavian artery. Subclavian arteries are patent with no signif icant stenosis. Tortuous courses of the common carotid arteries bilaterally. The bilateral common car otid, internal carotid, and external carotid arteries are otherwise patent with no significant stenos is or evidence of dissection. Vertebral arteries are patent with no significant stenosis or evidence of dissection. There are ground-glass opacities in the lung apices bilaterally, may be infectious or inflammatory in nature. There are polyps in the anterior aspects of the nasal cavity, larger on the l eft, measuring up to 2.4 cm in greatest dimension. Multilevel degenerative disc disease in the cervic al spine with areas of moderate to severe disc space narrowing, endplate sclerosis, and endplate spur ring. IMPRESSION: 1. No acute intracranial abnormality identified on the noncontrast CT head. 2. CTA head demonstrates no evidence of large vessel occlusion, aneurysm, or significant stenosis. 3. CTA neck demonstrates no evidence of carotid or vertebral dissection or significant stenosis. 4. Additional findings as detailed above.
--- NOTE | 2024-12-11 13:40 | DVH ---
PROCEDURE: MRI BRAIN HEAD WO CONTRAST INDICATION: acute stroke symptoms EXAM DATE: 12/11/2024 12:54 PM COMPARISON: MRI BRAIN HEAD WO CONTRAST on DOS: 06/12/23 TECHNIQUE: MRI of the brain without intravenous contrast. FINDINGS: Diffusion weighted images of the brain demonstrate no evidence of acute infarction. There is no evidence of acute intracranial hemorrhage, extra-axial collection, mass effect, midline s hift, herniation or hydrocephalus. The ventricles, sulci and cisterns appear age appropriate. The signal intensities of the brain parenchyma are within normal limits. There are no signal abnormalities on the susceptibility weighted sequences. The major vascular flow voids are present. Left mastoid effusion. T2 bright signal in the bilateral nasal passages similar to prior. The surrou nding soft tissues and osseous structures are unremarkable. IMPRESSION: 1. No evidence of acute infarction, intracranial hemorrhage, mass effect or hydrocephalus. Left masto id effusion. T2 bright signal abnormality in the bilateral nasal passageway similar to prior. HS:Y
--- NOTE | 2024-12-11 13:46 | DVHINCON2 ---
Neuro Consultation Date of Consultation Date: 12/11/24 History of Present Illness History of Present Illness: Corazon Boyce is a 64 year old female who presents with L sided weakness. On 12/10, while inpatient, she had acute onset of LUE/LLE weakness. She was seen by tele stroke and on 12/10 around 1999 she was given TNKase. She notes that she was facetiming her and he noted that her L eye had the being popping out. He noted her speech was off, and she was fatigued. She went to the bathroom and on the way back felt her LLE was dragging, her LUE was normal, but her speech was slurred. Her symptoms lasted >12 hours. Review of Systems Review of Systems: Review of Systems: 12 point review of systems is negative unless stated in HPI. Family History Patient History: Colon cancer G8 MOTHER, Onset:50's - 60 FH: arrhythmogenic right ventricular cardiomyopathy G8 SISTER, Onset:Unknown FH: colon cancer FH: sudden cardiac (SCD) G8 FATHER, Onset:Unknown Hypertension G8 MOTHER, Onset:Unknown Allergies and Medications Allergies: Coded Allergies: Valproic Acid (Verified Allergy, Unknown, 06/09/23) Home Meds: Reported Medications Potassium Chloride (Potassium Chloride ER) 10 Meq Tab, 1 TAB PO DAILY for 90 Da ys, #90 01/17/24 Losartan Potassium (Losartan Potassium) 50 Mg Tab, 1 TAB PO DAILY for 90 Days, #90 01/17/24 Carvedilol (COREG) 3.125 Mg Tab, 1 TAB PO BID for 30 Days, #60 11/26/23 Clopidogrel Bisulfate (Plavix) 75 Mg Tab, 1 TAB PO DAILY, TAB 1 Refill 11/26/23 Albuterol Sulfate (Proair Digihaler) 108 Mcg/Act Aer, 90 MCG IN Q6HPRN, AER 06/10/23 Aspirin (Aspir-81) 81 Mg Tab, 1 TAB PO DAILY, #30 TAB 5 Refills 06/10/23 Zonisamide (Zonisamide) 100 Mg Cap, CAP PO UD for 30 Days, #150 Take 2 capsules by mouth in the morning, and 3 capsules by mouth in the evening. 06/10/23 Levetiracetam (Levetiracetam) 1,000 Mg Tab, 1 TAB PO BID 06/10/23 Topiramate (Topiramate) 50 Mg Tab, 1 TAB PO BID 06/10/23 Furosemide (Furosemide) 20 Mg Tab, 1 TAB PO BID 06/10/23 Atorvastatin Calcium (ATORVASTATIN CALCIUM) 40 Mg Tab, 1 TAB PO DAILY 06/10/23 Hydralazine HCl (Hydralazine HCl) 25 Mg Tab, 1 TAB PO BIDPRN PRN for blood pressure 06/10/23 Current Medications: Current Medications Medications (Trade) Dose Ordered Sig/Ada Route PRN Reason Start Time Stop Time Status Last Admin Sennosides (Senokot Tablet) 8.6 mg HS PO 12/11/24 22:00 12/11/24 21:18 Aspirin (Ecotrin Enteric Coated Tablet) 81 mg DAILY PO 12/13/24 10:00 Clopidogrel Bisulfate (Plavix) 75 mg DAILY PO 12/13/24 10:00 General Examination Last Vital sign Vital Signs Date Time Temp Pulse Resp B/P (MAP) Pulse Ox O2 Delivery O2 Flow Rate FiO2 12/12/24 12:13 120/50 12/12/24 12:12 86 12/12/24 06:45 11 96 12/12/24 06:00 Nasal Cannula* 2 28 12/12/24 04:15 98.3 98.3 General Exam: General Examination: General: No apparent distress, appears comfortable. Cooperative HEENT: Normocephalic, atraumatic. Supple neck. No oropharynx lesion or exudate noted. Extremities: No noted edema or cyanosis Skin: No noted rashes or jaundice. Neuro Exam: Neurological Examination: Mental Status: Alert and oriented to person, place, and time. Speech is fluent. No dysarthria or aphasia noted. Cranial Nerves: Pupils equally round and reactive to light. Visual kelly intact. No dysconjugate gaze. Extraocular movements were intact. No ptosis on primary gaze or fatiguable ptosis was noted. Sensation intact in V1-V3 bilaterally. No facial asymmetry with symmetrical brow raise, smile, and puffing out cheeks. Hearing intact to finger rub bilaterally. Tongue midline with symmetrical palate elevation. No tongue atrophy or fasciculations noted. Intact shoulder shrug. Motor examination: Normal bulk and tone in the bilateral upper and lower extremities. No abnormal movements appreciated. Upper Extremities (Right/Left) Functional weakness Infraspinatus 5/5 Deltoid 5/4 Biceps 5/4 Triceps 5/4 Interosseous 5/5 Lower Extremities (Right/Left) Iliopsoas 5/5 Quadriceps 5/5 Hamstrings 5/5 Tibialis anterior 5/5 Gastrocnemius 5/5 Toe Extension 5/5 Reflexes: Jaw Jerk absent Pectoralis absent/absent Biceps 2/2 Triceps 2/2 Brachioradialis 2/2 Patellar 2/2 Ankle 2/2 Babinski's Down/Down Sensory: Upper Extremity - Intact to light touch, Lower Extremity - Intact to light touch, Coordination: Intact finger to nose and [id number] bilaterally. No dysmetria noted. Negative Romberg's. Gait: Normal stride and stance. Labs: Laboratory Tests Test 12/06/24 14:40 12/06/24 16:30 12/06/24 22:07 12/07/24 06:15 Range/Units White Blood Count 7.1 4.4-10.8 10^3/uL Red Blood Count 4.06 4.0-5.20 10^6/uL Hemoglobin 13.9 12.2-16.2 g/dL Hematocrit 41.2 36.0-46.0 % Mean Corpuscular Volume 101.4 H 80.0-100.0 fL Mean Corpuscular Hemoglobin 34.1 H 28.0-32.0 pg Mean Corpuscular Hemoglobin Concent 33.7 32.0-36.0 g/dL Red Cell Distribution Width 14.5 H 11.8-14.3 % Platelet Count 171 140-450 10^3/uL Mean Platelet Volume 9.1 6.9-10.8 fL Neutrophils (%) (Auto) 53.4 37.0-80.0 % Lymphocytes (%) (Auto) 34.1 10.0-50.0 % Monocytes (%) (Auto) 8.6 0.0-12.0 % Eosinophils (%) (Auto) 2.9 0.0-7.0 % Basophils (%) (Auto) 1.0 0.0-2.0 % Neutrophils # (Auto) 3.8 1.6-8.6 10 ^3/uL Lymphocytes # (Auto) 2.4 0.4-5.4 10 ^3/uL Monocytes # (Auto) 0.6 0-1.3 10 ^3/uL Eosinophils # (Auto) 0.2 0-0.8 10 ^3/uL Basophils # (Auto) 0.1 0-0.2 10 ^3/uL Nucleated Red Blood Cells 0.1 % Sodium Level 137 136 136-145 mmol/L Potassium Level 3.7 3.7 3.5-5.1 mmol/L Chloride Level 106 105 98-107 mmol/L Carbon Dioxide Level 23 23 20-31 mmol/L Anion Gap 8 8 5-15 Blood Urea Nitrogen 9 9 9-23 mg/dL Creatinine 1.02 1.05 H 0.550-1.02 mg/dL Glomerular Filtration Rate Calc 61 59 >90 mL/min BUN/Creatinine Ratio 8.8 L 8.6 L 10.0-20.0 Serum Glucose 143 H 103 74-106 mg/dL Calcium Level 9.3 9.2 8.7-10.4 mg/dL Troponin I High Sensitivity 7 8 5 8 </=34 ng/L B-Type Natriuretic Peptide 143.06 0-100 pg/mL Triglycerides Level 75 < 150 mg/dL Cholesterol Level 192 < 200 mg/dL LDL Cholesterol 119 H < 100 mg/dL HDL Cholesterol 68 H 40-59 mg/dL Test 12/07/24 13:50 12/08/24 06:20 12/10/24 19:15 12/10/24 20:49 Range/Units Troponin I High Sensitivity 7 </=34 ng/L Sodium Level 139 139 136-145 mmol/L Potassium Level 3.9 3.9 3.5-5.1 mmol/L Chloride Level 107 107 98-107 mmol/L Carbon Dioxide Level 23 25 20-31 mmol/L Anion Gap 9 7 5-15 Blood Urea Nitrogen 12 18 9-23 mg/dL Creatinine 1.13 H 1.30 H 0.550-1.02 mg/dL Glomerular Filtration Rate Calc 54 46 >90 mL/min BUN/Creatinine Ratio 10.6 13.8 10.0-20.0 Serum Glucose 119 H 132 H 74-106 mg/dL Calcium Level 8.9 9.8 8.7-10.4 mg/dL White Blood Count 6.8 4.4-10.8 10^3/uL Red Blood Count 4.42 4.0-5.20 10^6/uL Hemoglobin 15.1 12.2-16.2 g/dL Hematocrit 44.6 36.0-46.0 % Mean Corpuscular Volume 100.9 H 80.0-100.0 fL Mean Corpuscular Hemoglobin 34.2 H 28.0-32.0 pg Mean Corpuscular Hemoglobin Concent 33.9 32.0-36.0 g/dL Red Cell Distribution Width 14.8 H 11.8-14.3 % Platelet Count 200 140-450 10^3/uL Mean Platelet Volume 9.6 6.9-10.8 fL Neutrophils (%) (Auto) 55.9 37.0-80.0 % Lymphocytes (%) (Auto) 31.3 10.0-50.0 % Monocytes (%) (Auto) 8.2 0.0-12.0 % Eosinophils (%) (Auto) 3.3 0.0-7.0 % Basophils (%) (Auto) 1.3 0.0-2.0 % Neutrophils # (Auto) 3.8 1.6-8.6 10 ^3/uL Lymphocytes # (Auto) 2.1 0.4-5.4 10 ^3/uL Monocytes # (Auto) 0.6 0-1.3 10 ^3/uL Eosinophils # (Auto) 0.2 0-0.8 10 ^3/uL Basophils # (Auto) 0.1 0-0.2 10 ^3/uL Nucleated Red Blood Cells 0.1 % Erythrocyte Sedimentation Rate 23 H 0-20 mm/hr Prothrombin Time 10.8 9.3-11.8 sec Prothrombin Time INR 1.02 0.9-1.15 Activated Partial Thromboplast Time 26.9 24.5-34.5 SEC Hemoglobin A1c 5.6 <5.7 % A1C Total Bilirubin 0.8 0.2-1.0 mg/dL Aspartate Amino Transferase (AST) 112 H 13-40 U/L Alanine Aminotransferase (ALT) 100 H 7-40 U/L Alkaline Phosphatase 164 H 46-116 U/L Total Protein 6.8 5.7-8.2 g/dL Albumin 4.0 3.2-4.8 g/dL Triglycerides Level 89 < 150 mg/dL Cholesterol Level 185 < 200 mg/dL LDL Cholesterol 109 H < 100 mg/dL HDL Cholesterol 62 H 40-59 mg/dL Test 12/11/24 05:20 12/12/24 04:59 Range/Units White Blood Count 7.6 6.9 4.4-10.8 10^3/uL Red Blood Count 4.56 4.19 4.0-5.20 10^6/uL Hemoglobin 15.7 14.4 12.2-16.2 g/dL Hematocrit 46.6 H 42.5 36.0-46.0 % Mean Corpuscular Volume 102.1 H 101.3 H 80.0-100.0 fL Mean Corpuscular Hemoglobin 34.4 H 34.3 H 28.0-32.0 pg Mean Corpuscular Hemoglobin Concent 33.7 33.9 32.0-36.0 g/dL Red Cell Distribution Width 14.5 H 14.5 H 11.8-14.3 % Platelet Count 226 225 140-450 10^3/uL Mean Platelet Volume 9.4 9.1 6.9-10.8 fL Neutrophils (%) (Auto) 63.0 59.6 37.0-80.0 % Lymphocytes (%) (Auto) 25.3 27.0 10.0-50.0 % Monocytes (%) (Auto) 7.8 9.1 0.0-12.0 % Eosinophils (%) (Auto) 3.3 3.6 0.0-7.0 % Basophils (%) (Auto) 0.6 0.7 0.0-2.0 % Neutrophils # (Auto) 4.8 4.1 1.6-8.6 10 ^3/uL Lymphocytes # (Auto) 1.9 1.9 0.4-5.4 10 ^3/uL Monocytes # (Auto) 0.6 0.6 0-1.3 10 ^3/uL Eosinophils # (Auto) 0.3 0.2 0-0.8 10 ^3/uL Basophils # (Auto) 0 0.1 0-0.2 10 ^3/uL Nucleated Red Blood Cells 0.1 0.1 % Prothrombin Time 11.2 11.0 9.3-11.8 sec Prothrombin Time INR 1.06 1.04 0.9-1.15 Activated Partial Thromboplast Time 29.1 29.9 24.5-34.5 SEC Sodium Level 140 142 136-145 mmol/L Potassium Level 3.6 3.5 3.5-5.1 mmol/L Chloride Level 106 107 98-107 mmol/L Carbon Dioxide Level 22 23 20-31 mmol/L Anion Gap 12 12 5-15 Blood Urea Nitrogen 15 21 9-23 mg/dL Creatinine 1.09 H 1.25 H 0.550-1.02 mg/dL Glomerular Filtration Rate Calc 56 48 >90 mL/min BUN/Creatinine Ratio 13.8 16.8 10.0-20.0 Serum Glucose 96 105 74-106 mg/dL Calcium Level 10.4 8.9 8.7-10.4 mg/dL Assessment/Plan 1. Likely conversion disorder - On 12/10, while inpatient, she had acute onset of LUE/LLE weakness. She was seen by tele stroke and on 12/10 around 1999 she was given TNKase. CTA head and neck and MRI Brain showed no acute process. LDL 109, HgA1C 5.6. In 05/2022 she was seen at [facility] for L sided weakness, negative MRI Brain, CTA head and neck and discharged on ASA + Plavix + keppra (seizures while in hospital). Again 06/2023 seen at [facility] for L sided weakness with negative CTA and MRI again and told to take Plavix. Pt seen at [facility] on 09/12/24 for possible TIA (negative CTA head/neck, MRI Brain, SBP > 200, started on Plavix + ASA + Atorvastatin). Unclear if this is true TIA vs conversion/functional disorder - Continue ASA 81mg + Plavix 75mg daily - Encouraged to see therapy/psychiatry Plan discussed with: Patient MAG BROWN MD Dec 11, 2024 13:46
[2024-12-11] MEDS: SODIUM CHLORIDE 0.9% 1,000 ML IV SCH (15:00)
[2024-12-11] MEDS: SENNA 8.6 MG TAB PO SCH (21:18)
--- NOTE | 2024-12-11 22:53 | DVHPN2 ---
Progress Note - Dictate Date Seen: Dec 11, 2024 Medical Necessity Reason Pt with a Central, PICC or Fol: No Subjective Patient was seen and evaluated in follow up. Patient is complaining of constipation. LUE Venous Duplex is negative for DVT. CTA head demonstrates no evidence of large vessel occlusion, aneurysm, or significant stenosis. CTA neck demonstrates no evidence of carotid or vertebral dissection or significant stenosis. MRI brain: no evidence of acute infarction, intracranial hemorrhage, mass effect or hydrocephalus. Left mastoid effusion. T2 bright signal abnormality in the bilateral nasal passageway similar to prior. Telemetry reviewed. vital signs Vital Sign Date Time Temp Pulse Resp B/P (MAP) Pulse Ox O2 Delivery O2 Flow Rate FiO2 12/11/24 22:00 71 14 118/50 (72) 94 12/11/24 22:00 Room Air* 0 21 12/11/24 20:00 97.8 97.8 Total Intake and Output 12/10/24 12/10/24 12/11/24 15:00 23:00 07:00 Intake Total 840 ml Output Total 700 ml Balance 140 ml medications Current Medications Medications Dose Ordered Sig/Ada Route Start Time Stop Time Status Last Admin Dose Admin Nitroglycerin 0.4 mg Q5MINP PRN SL 12/06/24 20:30 Morphine Sulfate 2 mg Q30M PRN IV 12/06/24 20:30 12/08/24 13:08 2 MG Ondansetron HCl 4 mg Q6HPRN PRN IV 12/06/24 20:30 12/11/24 05:00 4 MG Acetaminophen 650 mg Q6HPRN PRN PO 12/06/24 20:30 Hold Famotidine 20 mg BID PO 12/06/24 22:00 12/11/24 21:18 20 MG Acetaminophen/ Hydrocodone Bitart 1 tab Q6HPRN PRN PO 12/06/24 20:30 12/10/24 05:59 1 TAB Atorvastatin Calcium 40 mg HS PO 12/06/24 22:00 12/11/24 21:18 40 MG Levetiracetam 1,000 mg BID PO 12/07/24 15:00 12/11/24 21:18 1,000 MG Topiramate 50 mg BID PO 12/07/24 15:00 12/11/24 12:06 50 MG Carvedilol 3.125 mg Q12HR PO 12/07/24 22:00 12/11/24 10:25 3.125 MG Furosemide 20 mg DAILY PO 12/08/24 10:00 12/11/24 10:26 20 MG Losartan Potassium 50 mg DAILY PO 12/07/24 22:00 12/11/24 10:25 50 MG Nicardipine/ Sodium Chloride 200 ml @ 50 mls/hr Q4H IV 12/10/24 20:45 Hydralazine HCl 10 mg Q4HPRN PRN IV 12/11/24 01:30 12/11/24 05:01 10 MG Morphine Sulfate 2 mg Q6HPRN PRN IV 12/11/24 06:00 12/11/24 12:06 2 MG Sennosides 8.6 mg HS PO 12/11/24 22:00 12/11/24 21:18 8.6 MG Sodium Chloride 1,000 ml @ 60 mls/hr [id number] IV 12/11/24 12:00 12/11/24 15:00 60 MLS/HR objective GENERAL: Alert and oriented x 3. No acute distress. Obese. EYES: PERRL, EOMI. Anicteric. HENT: Moist mucous membranes. LUNGS: Clear to auscultation bilaterally. CARDIOVASCULAR: Regular rate and rhythm. ABDOMEN: Soft, nontender and nondistended. EXTREMITIES: No edema. NEUROLOGIC: No focal neurological deficits. SKIN: Warm, dry. laboratory and microbiology Laboratory Tests 12/11/24 05:20 Test 12/11/24 05:20 Range/Units Serum Glucose 96 74-106 mg/dL Problem List Unstable angina. Hypertension. Chronic CHF. CKD. History of CVA. History of Seizures. Assessment/Plan Continued all current supportive medical care. Stress test. Aspirin. IV Hydralazine for SBP >160. Nitro SL. Coreg. Diuretics with Lasix. [place] for pain management. Additional plan as per the hospital course. Dietary Evaluation Review Comments: 1) Cardiac + renal specific 60gm 2) Monitor PO intake, I/O, lab values Expected Outcomes/Goals: To meet >75% estimated needs Fu 3-5 days Plan discussed with: Patient CONSTANCE RALPH MD Dec 11, 2024 22:53
[2024-12-12] VITALS (45 sets, daily range): BP systolic 85–130; BP diastolic 25–78; PULSE 57–86; RESP 10–20; TEMP 97.4–98.4; O2SAT 91–97
--- NOTE | 2024-12-12 05:31 | DVH ---
EXAM: CT HEAD WITHOUT CONTRAST INDICATION: follow up Suzanne tx for stroke TECHNIQUE: CT of the head without intravenous contrast. Radiation Dose : 1. Head: CT Dose: CTDI volume is 67.91 mGy. Dose-length product is 1234.37 mGy*cm The dose indicators for CT are the volume Computed Tomography (CT) Dose Index (CTDIvol) and the Dose Length Product (DLP), and are measured in units of mGy and mGy-cm, respectively. These indicators are not patient dose, but values generated from the CT scanner acquisition factors. The report includes radiation exposure data for exposures received during this examination. COMPARISON: CT STROKE CTH on DOS: 12/10/24, CT HEAD WITHOUT CONTRAST on DOS: 01/16/24, CT HEAD WITHOUT CONTRAST on DOS: 06/09/23 FINDINGS: There is no evidence of acute intracranial hemorrhage, extra-axial collection, mass effect, midline s hift, herniation or hydrocephalus. The ventricles, sulci and cisterns are age appropriate. The estrella-white differentiation is intact. The visualized paranasal sinuses and mastoid air cells are clear. The surrounding soft tissues and osseous structures are unremarkable. IMPRESSION: 1. No acute intracranial abnormality. Radiation optimization: All CT scans at this facility use at least one of these dose optimization bo hniques: automated exposure control mA and/or kV adjustment per patient size (includes targeted exam s where dose is matched to clinical indication) or iterative reconstruction.
[2024-12-12 06:12] LABS: Hematocrit 42.5 % (36.0-46.0); Hemoglobin 14.4 g/dL (12.2-16.2); Mean Corpuscular Hemoglobin 34.3 pg (28.0-32.0); Mean Corpuscular Volume 101.3 fL (80.0-100.0); Nucleated Red Blood Cells % 0.1 %
[2024-12-12 06:21] LABS: Calcium 8.9 mg/dL (8.7-10.4); Potassium 3.5 mmol/L (3.5-5.1); Sodium 142 mmol/L (136-145)
[2024-12-12 06:22] LABS: Anion Gap 12 (5-15); Carbon Dioxide 23 mmol/L (20-31)
[2024-12-12 06:24] LABS: Chloride 107 mmol/L (98-107)
[2024-12-12 06:27] LABS: BUN/Creatinine Ratio 16.8 (10.0-20.0); Blood Urea Nitrogen 21 mg/dL (9-23); Glucose 105 mg/dL (74-106)
[2024-12-12 06:28] LABS: INR 1.04 (0.9-1.15); Partial Thromboplastin Time 29.9 SEC (24.5-34.5); Prothrombin Time 11.0 sec (9.3-11.8)
[2024-12-12] MEDS: REGADENOSON 0.4 MG/5 ML SYRG IV ONE ×2 (10:08→10:14)
--- NOTE | 2024-12-12 12:12 | DVHPN2 ---
Progress Note - Dictate Date Seen: Dec 12, 2024 Medical Necessity Reason Pt with a Central, PICC or Fol: No Subjective Patient is home walking to the bathroom now. Having bowel movements. No complaints. Undergoing Cardiolite stress test today. No focal weakness or deficits noted vital signs Vital Sign Date Time Temp Pulse Resp B/P (MAP) Pulse Ox O2 Delivery O2 Flow Rate FiO2 12/12/24 06:45 59 11 85/27 (46) 96 12/12/24 06:00 Nasal Cannula* 2 28 12/12/24 04:15 98.3 98.3 Total Intake and Output 12/11/24 12/11/24 12/12/24 15:00 23:00 07:00 Intake Total 880 ml 720 ml Balance 880 ml 720 ml medications Current Medications Medications Dose Ordered Sig/Ada Route Start Time Stop Time Status Last Admin Dose Admin Nitroglycerin 0.4 mg Q5MINP PRN SL 12/06/24 20:30 Morphine Sulfate 2 mg Q30M PRN IV 12/06/24 20:30 12/08/24 13:08 2 MG Ondansetron HCl 4 mg Q6HPRN PRN IV 12/06/24 20:30 12/11/24 05:00 4 MG Acetaminophen 650 mg Q6HPRN PRN PO 12/06/24 20:30 Hold Famotidine 20 mg BID PO 12/06/24 22:00 12/11/24 21:18 20 MG Acetaminophen/ Hydrocodone Bitart 1 tab Q6HPRN PRN PO 12/06/24 20:30 12/10/24 05:59 1 TAB Atorvastatin Calcium 40 mg HS PO 12/06/24 22:00 12/11/24 21:18 40 MG Levetiracetam 1,000 mg BID PO 12/07/24 15:00 12/11/24 21:18 1,000 MG Topiramate 50 mg BID PO 12/07/24 15:00 12/11/24 12:06 50 MG Carvedilol 3.125 mg Q12HR PO 12/07/24 22:00 12/11/24 10:25 3.125 MG Furosemide 20 mg DAILY PO 12/08/24 10:00 12/11/24 10:26 20 MG Nicardipine/ Sodium Chloride 200 ml @ 50 mls/hr Q4H IV 12/10/24 20:45 Hydralazine HCl 10 mg Q4HPRN PRN IV 12/11/24 01:30 12/11/24 05:01 10 MG Morphine Sulfate 2 mg Q6HPRN PRN IV 12/11/24 06:00 12/11/24 12:06 2 MG Sennosides 8.6 mg HS PO 12/11/24 22:00 12/11/24 21:18 8.6 MG Sodium Chloride 1,000 ml @ 60 mls/hr [id number] IV 12/11/24 12:00 12/12/24 04:59 60 MLS/HR Aspirin 81 mg DAILY PO 12/13/24 10:00 Clopidogrel Bisulfate 75 mg DAILY PO 12/13/24 10:00 objective HEENT neck supple no JVD. Normal speech. Heart regular rate and rhythm S1- S2. Lungs fair air movement without rales wheezes. Abdomen obese soft nontender positive bowel sounds. Extremities no edema positive pulses. No focal deficits noted. laboratory and microbiology Laboratory Tests 12/12/24 04:59 Test 12/12/24 04:59 Range/Units Serum Glucose 105 74-106 mg/dL Assessment/Plan She is evaluated by neurologist. Patient had similar episodes of weakness with code stroke multiple occasions at [facility] this year she had three admissions and prior to that she had multiple admissions. She had multiple MRI of the brain as well as CT angiogram head and neck for her symptoms which have been always unremarkable without any acute pathology. [place] her symptoms or possible conversion disorder/adjustment disorder. Patient also had a psychiatric evaluation and [facility]. Repeat head CT today no acute pathology. We will resume her aspirin and Plavix from 12/13/2024. Continue rest of current supportive care and treatment as she is on. Proceed with Cardiolite stress test and for it does not show any reversible ischemia and normal stress test she can be discharged home this afternoon. Discussed with the nurse regarding care plan. Problems(with codes): (1) Acute chest pain (2) Acute renal injury (3) Constipation (4) CVA (cerebral vascular accident) Dietary Evaluation Review Comments: 1) Cardiac + renal specific 60gm 2) Monitor PO intake, I/O, lab values Expected Outcomes/Goals: To meet >75% estimated needs Fu 3-5 days Plan discussed with: Other TAYLOR TONEY MD Dec 12, 2024 12:12
--- NOTE | 2024-12-12 15:18 | DVHPN2 ---
Progress Note - Dictate Date Seen: Dec 12, 2024 Medical Necessity Reason Pt with a Central, PICC or Fol: No Subjective Patient was seen and evaluated in follow up in the ICU. Patient is resting in bed. Undergoing Cardiolite stress test today, if it does not show any reversible ischemia and normal stress test she can be discharged home this afternoon. CT head shows no acute intracranial abnormality. vital signs Vital Sign Date Time Temp Pulse Resp B/P (MAP) Pulse Ox O2 Delivery O2 Flow Rate FiO2 12/12/24 13:15 70 130/53 12/12/24 08:00 12 97 Room Air* 0 21 12/12/24 04:15 98.3 98.3 Total Intake and Output 12/11/24 12/11/24 12/12/24 14:59 22:59 06:59 Intake Total 820 ml 780 ml Balance 820 ml 780 ml medications Current Medications Medications Dose Ordered Sig/Ada Route Start Time Stop Time Status Last Admin Dose Admin Nitroglycerin 0.4 mg Q5MINP PRN SL 12/06/24 20:30 Morphine Sulfate 2 mg Q30M PRN IV 12/06/24 20:30 12/08/24 13:08 2 MG Ondansetron HCl 4 mg Q6HPRN PRN IV 12/06/24 20:30 12/11/24 05:00 4 MG Acetaminophen 650 mg Q6HPRN PRN PO 12/06/24 20:30 Hold Famotidine 20 mg BID PO 12/06/24 22:00 12/12/24 12:13 20 MG Acetaminophen/ Hydrocodone Bitart 1 tab Q6HPRN PRN PO 12/06/24 20:30 12/10/24 05:59 1 TAB Atorvastatin Calcium 40 mg HS PO 12/06/24 22:00 12/11/24 21:18 40 MG Levetiracetam 1,000 mg BID PO 12/07/24 15:00 12/12/24 12:14 1,000 MG Topiramate 50 mg BID PO 12/07/24 15:00 12/11/24 12:06 50 MG Carvedilol 3.125 mg Q12HR PO 12/07/24 22:00 12/12/24 12:12 3.125 MG Furosemide 20 mg DAILY PO 12/08/24 10:00 12/12/24 12:13 20 MG Hydralazine HCl 10 mg Q4HPRN PRN IV 12/11/24 01:30 12/11/24 05:01 10 MG Morphine Sulfate 2 mg Q6HPRN PRN IV 12/11/24 06:00 12/11/24 12:06 2 MG Sennosides 8.6 mg HS PO 12/11/24 22:00 12/11/24 21:18 8.6 MG Sodium Chloride 1,000 ml @ 60 mls/hr [id number] IV 12/11/24 12:00 12/12/24 04:59 60 MLS/HR Aspirin 81 mg DAILY PO 12/13/24 10:00 Clopidogrel Bisulfate 75 mg DAILY PO 12/13/24 10:00 objective GENERAL: Alert and oriented x 3. No acute distress. Obese. EYES: PERRL, EOMI. Anicteric. HENT: Moist mucous membranes. LUNGS: Clear to auscultation bilaterally. CARDIOVASCULAR: Regular rate and rhythm. ABDOMEN: Soft, nontender and nondistended. EXTREMITIES: No edema. NEUROLOGIC: No focal neurological deficits. SKIN: Warm, dry. laboratory and microbiology Laboratory Tests 12/12/24 04:59 Test 12/12/24 04:59 Range/Units Serum Glucose 105 74-106 mg/dL Problem List Unstable angina. Hypertension. Chronic CHF. CKD. History of CVA. History of Seizures. Constipation. Assessment/Plan Continued all current supportive medical care. Stress test. Morphine and [place] for pain management. Aspirin, Lipitor, Plavix. Coreg. Diuretics with Lasix. IV Hydralazine for SBP >160. Nitro SL. Additional plan as per the hospital course. Critical care time of 45 minutes provided to include time spent evaluation of patient at bedside, when appropriate patient/family education for diagnosis, treatment plan, review of pertinent medical information and discussion of care with specialty providers and PCP. Dietary Evaluation Review Comments: 1) Cardiac + renal specific 60gm 2) Monitor PO intake, I/O, lab values Expected Outcomes/Goals: To meet >75% estimated needs Fu 3-5 days Plan discussed with: Patient CONSTANCE RALPH MD Dec 12, 2024 15:01
[2024-12-13] VITALS (12 sets, daily range): BP systolic 123–158; BP diastolic 69–88; PULSE 66–72; RESP 15–19; TEMP 36.4; O2SAT 94–97
[2024-12-13] MEDS: ASPirin-EC 81 mg tab PO SCH (10:15)
[2024-12-13] MEDS: CLOPIDOGREL BISULFATE 75 MG TAB PO SCH (10:16)
--- NOTE | 2024-12-13 13:52 | DVHDS2 ---
Discharge Summary Date of Admission Dec 06, 2024 at 20:30 Date of Discharge: Dec 13, 2024 Labs/Diagnostic Data: Laboratory Results Test 12/12/24 04:59 12/10/24 20:49 12/10/24 19:15 12/07/24 13:50 White Blood Count 6.9 10^3/uL (4.4-10.8) Red Blood Count 4.19 10^6/uL (4.0-5.20) Hemoglobin 14.4 g/dL (12.2-16.2) Hematocrit 42.5 % (36.0-46.0) Mean Corpuscular Volume 101.3 fL (80.0-100.0) Mean Corpuscular Hemoglobin 34.3 pg (28.0-32.0) Mean Corpuscular Hemoglobin Concent 33.9 g/dL (32.0-36.0) Red Cell Distribution Width 14.5 % (11.8-14.3) Platelet Count 225 10^3/uL (140-450) Mean Platelet Volume 9.1 fL (6.9-10.8) Neutrophils (%) (Auto) 59.6 % (37.0-80.0) Lymphocytes (%) (Auto) 27.0 % (10.0-50.0) Monocytes (%) (Auto) 9.1 % (0.0-12.0) Eosinophils (%) (Auto) 3.6 % (0.0-7.0) Basophils (%) (Auto) 0.7 % (0.0-2.0) Neutrophils # (Auto) 4.1 10 ^3/uL (1.6-8.6) Lymphocytes # (Auto) 1.9 10 ^3/uL (0.4-5.4) Monocytes # (Auto) 0.6 10 ^3/uL (0-1.3) Eosinophils # (Auto) 0.2 10 ^3/uL (0-0.8) Basophils # (Auto) 0.1 10 ^3/uL (0-0.2) Nucleated Red Blood Cells 0.1 % Prothrombin Time 11.0 sec (9.3-11.8) Prothrombin Time INR 1.04 (0.9-1.15) Activated Partial Thromboplast Time 29.9 SEC (24.5-34.5) Sodium Level 142 mmol/L (136-145) Potassium Level 3.5 mmol/L (3.5-5.1) Chloride Level 107 mmol/L (98-107) Carbon Dioxide Level 23 mmol/L (20-31) Anion Gap 12 (5-15) Blood Urea Nitrogen 21 mg/dL (9-23) Creatinine 1.25 mg/dL (0.550-1.02) Glomerular Filtration Rate Calc 48 mL/min (>90) BUN/Creatinine Ratio 16.8 (10.0-20.0) Serum Glucose 105 mg/dL (74-106) Calcium Level 8.9 mg/dL (8.7-10.4) Total Bilirubin 0.8 mg/dL (0.2-1.0) Aspartate Amino Transferase (AST) 112 U/L (13-40) Alanine Aminotransferase (ALT) 100 U/L (7-40) Alkaline Phosphatase 164 U/L (46-116) Total Protein 6.8 g/dL (5.7-8.2) Albumin 4.0 g/dL (3.2-4.8) Triglycerides Level 89 mg/dL (< 150) Cholesterol Level 185 mg/dL (< 200) LDL Cholesterol 109 mg/dL (< 100) HDL Cholesterol 62 mg/dL (40-59) Erythrocyte Sedimentation Rate 23 mm/hr (0-20) Hemoglobin A1c 5.6 % A1C (<5.7) Troponin I High Sensitivity 7 ng/L (</=34) Test 12/06/24 14:40 B-Type Natriuretic Peptide 143.06 pg/mL (0-100) Other Laboratory Tests 12/12/24 04:59 Brief Hx & Hospital Course: Mrs. Corazon Boyce is a 64 yo female with a history of CHF, CKF, CVA, HLD, Hypertension, seizures who presents with a chief complaint of left sided chest pain pressure like in nature radiating to neck and left upper back. Patient reports chest pain started Wednesday night intermittently and worsened yesterday with no relief after taking SL Nitroglycerine. Patient endorses associated dyspnea with the chest pain. Patient denies nausea, vomiting, fevers, chills, abdominal pain, dizziness. Patient admitted for further evaluation. She is admitted for her chest pain complaints. She is evaluated by service attendant. Patient is scheduled to undergo Cardiolite stress which was not done immediately. While waiting for the stress in the hospital her troponins have been negative. EKG did not show any cardiac arrhythmia. Patient remained pain-free. Over the weekend patient had complains of right-sided weakness with a slurred speech therefore code stroke and tele Neurology was initiated. They have recommended TNKase which she received as a code stroke protocol. However subsequent MRI of the brain came back normal. Her CT angiogram of the head and neck also came back normal without any stenosis. Patient had similar episodes and incidence during prior hospitalizations at [facility]. She had extensive workup including EEG MRI CT angiogram of the brain and neurological evaluations and felt her symptoms or possible conversion disorder. Patient made aware of this. While in the hospital post TNKase treatment she was monitored and remained stable. Her symptoms resolved. Patient is subsequently underwent Cardiolite stress test did not show any reversible ischemia with a normal stress study. Given the patient's symptoms resolved and having had necessary workup including cardiac and neurology which are being essentially normal it is felt she can be discharged home. Patient is advised to continue all the home medications as taking and have a close follow up with the neurologist and primary care physician. I have talked with the patient regarding hospital diagnosis, treatment she received, hospital course, discharge medications, Cardiolite stress test results as well as MRI brain results and follow-up plan of care. She has verbalized understanding of these and agree with the care plan as outlined. Consults/Reason for consult PROCEDURE(s): HL - BRAIN HEAD WO CONTRAST REASON: acute stroke symptoms ORDER NUMBER(s): [id number], ACCESSION NUMBER(s): [id number] PROCEDURE: MRI BRAIN HEAD WO CONTRAST INDICATION: acute stroke symptoms EXAM DATE: 12/11/2024 12:54 PM COMPARISON: MRI BRAIN HEAD WO CONTRAST on DOS: 06/12/23 TECHNIQUE: MRI of the brain without intravenous contrast. FINDINGS: Diffusion weighted images of the brain demonstrate no evidence of acute infarction. There is no evidence of acute intracranial hemorrhage, extra-axial collection, mass effect, midline shift, herniation or hydrocephalus. The ventricles, sulci and cisterns appear age appropriate. The signal intensities of the brain parenchyma are within normal limits. There are no signal abnormalities on the susceptibility weighted sequences. The major vascular flow voids are present. Left mastoid effusion. T2 bright signal in the bilateral nasal passages similar to prior. The surrounding soft tissues and osseous structures are unremarkable. IMPRESSION: 1. No evidence of acute infarction, intracranial hemorrhage, mass effect or hydrocephalus. Left mastoid effusion. T2 bright signal abnormality in the bilateral nasal passageway similar to prior. HS:Y Operations or Procedures Exam: Nuclear Stress Test Indication: chest pain BMI: 0 Medical History Medical History: HTN, angina, CHF, CKD, CVA, Seizures Stress Test Details Stress Test: Pharmacologic stress testing performed using 0.4 mg of regadenoson per 5 mL given IV over 10 seconds. HR Resting HR: 76 bpm Max Heart Rate (APMHR): 155.591586 bpm Max HR Achieved: 93 bpm Target HR (85% APMHR): 131.507148 bpm % of APMHR: 60.00 Recovery HR: 83 bpm BP Resting BP: 131/70 mmHg Recovery BP: 128/66 mmHg ECG Resting ECG: Sinus Rhythm w/ BBB Clinical Reason for Termination: Completed protocol Stress ECG Conclusion lvef 77% normal perfusion scan no major ischemia NM EXAM: Myocardial Perfusion REST/STRESS Imaging Protocol: Rest Tc-99m/Stress Tc-99m 1 day Resting Data Rest SPECT myocardial perfusion imaging was performed in supine position 60 minutes following the intravenous injection of 10.5 mCi of Tc-99m Sestamibi. Time of rest injection: 08:10 Date: 12/12/2024 Time of rest imagin:10 Date: 12/12/2024 Administration Route: IV Administration Site: Left Arm Pharmacologic Stress Pharmacologic stress test was performed by injecting Regadenoson 0.4 mg IV push followed by the intravenous injection of 33.0 mCi of Tc-99m Sestamibi. Time of stress injection: 10:10 Date: 12/12/2024 Time of stress imagin:10 Date: 12/12/2024 Administration Route: IV Administration Site: Left Arm Gated Stress SPECT was performed 60 minutes after stress injection. The images were gated to evaluate regional wall motion and calculate left ventricular ejection fraction. Stress only was performed in the Supine position. Nuclear Conclusion Nuclear Findings: negative for ischemia lvef 77% normal perfusion scan no major ischemia SIGNED BY: EDWINA OBRIEN MD SIGNED DATE/TIME: 12/14/24 1057 Condition at Discharge: Stable Final Diagnosis/Problems List This is a 64 yo female with known history of CHF, CKF, CVA, HLD, HTN, Seizures who presents with left sided chest pain radiating to neck, left upper back. Patient found to have 1. Chest pain ruled out [place] s/p normal stress test 2. Hypertension 3. Chronic CHF 4. Chronic Kidney failure 5. hx of CVA 6. hx of Seizures Discharge Disposition: Home with Health Services SNF Discharge Will this Physician continue t: No Discharge Instruct/Medications Diet: Cardiac 2g Na,low cholest Activity: See Comment Activity comment: No driving while on seizure medications. Follow Up/Referral: Follow up with the PCP in 1-2 weeks Follow up with the Cardiology Dr Livingston in 1-2 weeks Follow up with Neurology Dr. Naya Guerra after two weeks Medications: Resume home medications. Scheduled Albuterol Sulfate (Proair Digihaler), 90 MCG IN Q6HPRN, (Reported) Aspirin (Aspir-81), 1 TAB PO DAILY, (Reported) Atorvastatin Calcium (Atorvastatin Calcium), 1 TAB PO DAILY, (Reported) Carvedilol (Coreg), 1 TAB PO BID, (Reported) Clopidogrel Bisulfate (Plavix), 1 TAB PO DAILY, (Reported) Furosemide (Furosemide), 1 TAB PO BID, (Reported) Levetiracetam (Levetiracetam), 1 TAB PO BID, (Reported) Losartan Potassium (Losartan Potassium), 1 TAB PO DAILY, (Reported) Potassium Chloride (Potassium Chloride ER), 1 TAB PO DAILY, (Reported) Topiramate (Topiramate), 1 TAB PO BID, (Reported) Zonisamide (Zonisamide), CAP PO UD, (Reported) Scheduled PRN Hydralazine HCl (Hydralazine HCl), 1 TAB PO BIDPRN PRN for blood pressure, (Reported) Discharge Statement: "Patient was advised to return to the ER or call 911 if any headaches, dizziness, shortness of breath, chest pain, abdominal pain, bleeding, fevers, or worsening of medical condition. Patient was counseled about treatment plan, medications, possible side effects, patientverbalized understanding. All questions were answered to the best of my ability. This discharge took greater then 30 minutes in planning, reviewing documentation, counseling the patient, and discussing with other team members." ASSESSMENT ASSESSMENT Assessment This is a 64 yo female with known history of CHF, CKF, CVA, HLD, HTN, Seizures who presents with left sided chest pain radiating to neck, left upper back. Patient found to have 1. Chest pain ruled out [place] s/p normal stress test 2. Hypertension 3. Chronic CHF 4. Chronic Kidney failure 5. hx of CVA 6. hx of Seizures TAYLOR TONEY MD Dec 13, 2024 13:52
--- NOTE | 2024-12-13 23:48 | DVHPN2 ---
Progress Note - Dictate Date Seen: Dec 13, 2024 Medical Necessity Reason Pt with a Central, PICC or Fol: No Subjective Patient was seen and evaluated in follow up. Patient was downgraded to telemetry bed. Patient complains of generalized pain. Cardiac stress test results are pending. Telemetry reviewed. vital signs Vital Sign Date Time Temp Pulse Resp B/P (MAP) Pulse Ox O2 Delivery O2 Flow Rate FiO2 12/13/24 13:00 97.6 67 18 133/73 (93) 94 97.6 12/13/24 08:00 Room Air* 0 21 Total Intake and Output 12/12/24 12/12/24 12/13/24 15:00 23:00 07:00 Intake Total 360 ml 1020 ml 500 ml Balance 360 ml 1020 ml 500 ml medications Current Medications Medications Dose Ordered Sig/Ada Route Start Time Stop Time Status Last Admin Dose Admin Nitroglycerin 0.4 mg Q5MINP PRN SL 12/06/24 20:30 Morphine Sulfate 2 mg Q30M PRN IV 12/06/24 20:30 12/08/24 13:08 2 MG Ondansetron HCl 4 mg Q6HPRN PRN IV 12/06/24 20:30 12/11/24 05:00 4 MG Acetaminophen 650 mg Q6HPRN PRN PO 12/06/24 20:30 Hold Famotidine 20 mg BID PO 12/06/24 22:00 12/13/24 10:15 20 MG Acetaminophen/ Hydrocodone Bitart 1 tab Q6HPRN PRN PO 12/06/24 20:30 12/10/24 05:59 1 TAB Atorvastatin Calcium 40 mg HS PO 12/06/24 22:00 12/12/24 21:18 40 MG Levetiracetam 1,000 mg BID PO 12/07/24 15:00 12/13/24 10:16 1,000 MG Topiramate 50 mg BID PO 12/07/24 15:00 12/13/24 10:16 50 MG Carvedilol 3.125 mg Q12HR PO 12/07/24 22:00 12/13/24 10:15 3.125 MG Furosemide 20 mg DAILY PO 12/08/24 10:00 12/13/24 10:16 20 MG Hydralazine HCl 10 mg Q4HPRN PRN IV 12/11/24 01:30 12/11/24 05:01 10 MG Morphine Sulfate 2 mg Q6HPRN PRN IV 12/11/24 06:00 12/11/24 12:06 2 MG Sennosides 8.6 mg HS PO 12/11/24 22:00 12/12/24 21:18 8.6 MG Aspirin 81 mg DAILY PO 12/13/24 10:00 12/13/24 10:15 81 MG Clopidogrel Bisulfate 75 mg DAILY PO 12/13/24 10:00 12/13/24 10:16 75 MG objective GENERAL: Alert and oriented x 3. No acute distress. Obese. EYES: PERRL, EOMI. Anicteric. HENT: Moist mucous membranes. LUNGS: Clear to auscultation bilaterally. CARDIOVASCULAR: Regular rate and rhythm. ABDOMEN: Soft, nontender and nondistended. EXTREMITIES: No edema. NEUROLOGIC: No focal neurological deficits. SKIN: Warm, dry. laboratory and microbiology Laboratory Tests 12/12/24 04:59 Test 12/12/24 04:59 Range/Units Serum Glucose 105 74-106 mg/dL Problem List Unstable angina. Hypertension. Chronic CHF. CKD. History of CVA. History of Seizures. Constipation. Assessment/Plan Continued all current supportive medical care. Stress test. Aspirin,Plavix. Coreg. Diuretics with Lasix. Nitro SL. Additional plan as per the hospital course. Dietary Evaluation Review Comments: 1) Cardiac + renal specific 60gm 2) Monitor PO intake, I/O, lab values Expected Outcomes/Goals: To meet >75% estimated needs Fu 3-5 days Plan discussed with: Patient CONSTANCE RALPH MD Dec 13, 2024 14:57
--- NOTE | 2024-12-14 10:57 | DVHSR ---
APPROVED REPORT Exam: Nuclear Stress Test Indication: chest pain BMI: 0 Medical History Medical History: HTN, angina, CHF, CKD, CVA, Seizures Stress Test Details Stress Test: Pharmacologic stress testing performed using 0.4 mg of regadenoson per 5 mL given IV ov er 10 seconds. HR Resting HR: 76 bpmMax Heart Rate (APMHR): 155.373690 bpm Max HR Achieved: 93 bpmTarget HR (85% APMHR): 131.656862 bpm % of APMHR: 60.00 Recovery HR: 83 bpm BP Resting BP: 131/70 mmHg Recovery BP: 128/66 mmHg ECG Resting ECG: Sinus Rhythm w/ BBB Clinical Reason for Termination: Completed protocol Stress ECG Conclusion lvef 77% normal perfusion scan no major ischemia NM EXAM: Myocardial Perfusion REST/STRESS Imaging Protocol: Rest Tc-99m/Stress Tc-99m 1 day Resting Data Rest SPECT myocardial perfusion imaging was performed in supine position 60 minutes following the int ravenous injection of 10.5 mCi of Tc-99m Sestamibi. Time of rest injection: 08:10 Date: 12/12/2024 Time of rest imagin:10 Date: 12/12/2024 Administration Route: IV Administration Site: Left Arm Pharmacologic Stress Pharmacologic stress test was performed by injecting Regadenoson 0.4 mg IV push followed by the intra venous injection of 33.0 mCi of Tc-99m Sestamibi. Time of stress injection: 10:10 Date: 12/12/2024 Time of stress imagin:10 Date: 12/12/2024 Administration Route: IV Administration Site: Left Arm Gated Stress SPECT was performed 60 minutes after stress injection. The images were gated to evaluate regional wall motion and calculate left ventricular ejection fracti on. Stress only was performed in the Supine position. Nuclear Conclusion Nuclear Findings: negative for ischemia lvef 77% normal perfusion scan no major ischemia
== END 2024-12-13 17:35 | disposition home or self-care (01) | DRG 206 ==
LOC: EDBD 12:59 → EDUNIT# 12:59 → ER 12:59 → OVERFLOW 20:30 → TELE-WESTW 23:55 → DOU IN ICU 12-10 21:48 → ICU CENTRL 12-10 22:00 → TELE-WESTW 12-12 22:27
PROVIDERS: ADMIT Nurse Practitioner Family; ATTEND Nurse Practitioner Family
DX: M94.0 Chondrocostal junction syndrome [Tietze] (principal); I25.110 Atherosclerotic heart disease of native coronary artery with unstable angina pectoris; I13.0 Hypertensive heart and chronic kidney disease with heart failure and stage 1 through stage 4 chronic kidney disease, or unspecified chronic kidney disease; N18.9 Chronic kidney disease, unspecified; I50.9 Heart failure, unspecified; E66.01 Morbid (severe) obesity due to excess calories; G40.909 Epilepsy, unspecified, not intractable, without status epilepticus; E78.5 Hyperlipidemia, unspecified; K59.00 Constipation, unspecified; F44.9 Dissociative and conversion disorder, unspecified; Z79.899 Other long term (current) drug therapy; Z90.710 Acquired absence of both cervix and uterus; Z86.73 Personal history of transient ischemic attack (TIA), and cerebral infarction without residual deficits; Z80.0 Family history of malignant neoplasm of digestive organs; Z82.49 Family history of ischemic heart disease and other diseases of the circulatory system; Z79.82 Long term (current) use of aspirin; Z79.02 Long term (current) use of antithrombotics/antiplatelets; Z68.35 Body mass index [BMI] 35.0-35.9, adult
CPT/HCPCS: 36415; 70450; 70496; 70498; 70551; 71045; 78452; 80048; 80053; 80061; 83036; 83880; 84484; 85025; 85610; 85652; 85730; 87081; 93005; 93017; 93306; 93971; 96374; 96375; 97110; 97116; 97163; 97530; 99291; G0378; J2405; J3101